=== PATIENT | female | born 1950 | race Caucasian/White ===

== ENCOUNTER 2022-05-25 09:02 | Emergency (ER) | payer MEDICARE, BC, SELFPAY ==
[2022-05-25 09:11] VITALS: BP 159/69; PULSE 80; RESP 16; TEMP 36.6; O2SAT 98
--- NOTE | 2022-05-25 09:45 | DI.RAD_ITS ---
Exam(s) XR SHOULDER RT COMPLETE 2+V EXAM: XR SHOULDER RT COMPLETE 2+V CLINICAL HISTORY: fall/pain. TECHNIQUE: 2D digital imaging was performed of the right shoulder. Five images were obtained. AP, Grashey, Y-view and axillary views were obtained. COMPARISON: No exams were available for comparison FINDINGS: BONES: There is an acute fracture of the lateral aspect of the right clavicle. The apex of the fract ure is directed cephalad. The fracture does not involve the acromioclavicular joint. No bony destru ctive lesion is seen. JOINTS: No dislocation present. SOFT TISSUE: Normal. IMPRESSION: Right clavicular fracture. DATA REPOSITORY: RADIATION DOSE DELIVERED:
--- NOTE | 2022-05-25 09:45 | DI.RAD_ITS ---
Exam(s) XR PELVIS AP EXAM: XR PELVIS AP CLINICAL HISTORY: fall/pain. TECHNIQUE: 2D digital imaging was performed. One view is obtained. COMPARISON: No exams were available for comparison FINDINGS: BONES: No acute fracture is present. No bony destructive lesion is seen. Screw and plate fixation is seen in the right hemipelvis. JOINTS: No dislocation present. Degenerative changes are seen in the left hip with acetabular spurrin g present. A right total hip arthroplasty is incompletely visualized. The visualized portions are g rossly unremarkable. SOFT TISSUE: Vascular calcifications are present. IMPRESSION: No acute fracture or dislocation. DATA REPOSITORY: RADIATION DOSE DELIVERED:
--- NOTE | 2022-05-25 09:45 | DI.RAD_ITS ---
Exam(s) XR CHEST 2V PA LATERAL EXAM: XR CHEST 2V PA LATERAL CLINICAL HISTORY: fall/pain TECHNIQUE: 2D digital imaging was performed of the chest. Two images were obtained. PA and lateral views were obtained. COMPARISON: None. FINDINGS: MEDIASTINUM: Normal. HEART: Normal. PULMONARY VASCULATURE: Normal. LUNGS: Clear. PLEURAL SPACE: No pleural effusion or pneumothorax. BONE:Within normal limits for the patient's age. There are minimally displaced fractures involving t he lateral aspects of the left 7th and 8th ribs. There is an acute fracture of the distal aspect of the right clavicle. The apex of the fracture is directed cephalad. OTHER FINDINGS:Normal. IMPRESSION: 1. No acute pulmonary findings. 2. Minimally displaced fractures involving the lateral aspects of the left 7th and 8th ribs. No pneu mothorax. 3. Right clavicular fracture. DATA REPOSITORY: RADIATION DOSE DELIVERED:
--- NOTE | 2022-05-25 09:59 | NUR.NOTE ---
Nursing Note: PT TO DI FOR ORDERED EXAMS VIA W/C.
--- NOTE | 2022-05-25 10:40 | ED.GENADUL_ITS ---
Discharge Plan Disposition Patient Disposition: HOME Condition: Improving Discharge Details Clinical Impression: Clavicle fracture, Fall, Fracture of rib Primary Care Provider: Unknown,Unknown ED Provider: Rohan Torres Home Meds and New Rx's Prescriptions: New lidocaine [Lidoderm] 5 % adhesive patch,medicated 1 patch topical DAILY Qty: 30 0RF Rx Instructions: leave on most painful area for up to 12 hrs Continued aspirin 81 mg Tablet,Delayed Release (Dr/Ec) 81 mg PO DAILY acetaminophen 500 mg Tablet 1,000 mg PO BID cholecalciferol (vitamin D3) 50 mcg (2,000 unit) Tablet 2,000 unit PO DAILY clobetasol 0.05 % Ointment 1 applic TOPICAL BID clotrimazole 1 % Cream 1 applic TOPICAL BID ezetimibe 10 mg Tablet 10 mg PO DAILY fluocinolone [Synalar] 0.01 % Solution 1 applic TOPICAL DIRECTED Rx Instructions: 5 drops to affected ear BID insulin lispro 100 unit/mL Cartridge 25 unit subcut DAILY ferrous sulfate [iron] 325 mg (65 mg iron) Tablet 325 mg PO DIRECTED Rx Instructions: 3 times per week Levemir U-100 Insulin 100 unit/mL Solution 25 unit SUBCUT DIRECTED PRN Rx Instructions: in case of pump failure levothyroxine 100 mcg Tablet 100 mcg PO DAILY losartan 50 mg Tablet 50 mg PO DAILY melatonin 10 mg Capsule 10 mg PO HS sertraline 50 mg Tablet 75 mg PO DAILY simvastatin 20 mg Tablet 20 mg PO DIRECTED Rx Instructions: 3 times per week folic acid 0.8 mg Capsule 0.8 mg PO DAILY multivitamin Tablet 1 tab PO DAILY cyanocobalamin (vitamin B-12) [Vitamin B-12] 500 mcg Tablet 500 mcg PO DIRECTED Rx Instructions: take daily on weekdays Discharge Instructions Instructions: Clavicle Fracture (ED), Rib Fracture (ED), Fall Prevention for Older Adults (ED) Additional Instructions: Continue current medications as directed. I have provided you a prescription for Lidoderm patches he may take as directed. [id number] Tylenol as directed for discomfort. Be sure to use the incentive spirometer at least 4 times daily as directed to avoid a frozen shoulder. Please contact the office of Dr. Ascencio to discuss your clavicle fracture need for outpatient follow-up. Wear sling until that time. You may do passive range of motion 4 times daily to avoid a frozen shoulder. Please watch for new or worsening symptoms and return to the ER for any concerns. Lastly, please contact your primary care provider later today or tomorrow to discuss your ER visit need for outpatient r eevaluation Referrals: Javier Ascencio MD [ [facility] STAFF PHYSICIAN] - Medical Decision Making This is a 71-year-old female, not anticoagulated, past sickle history of diabetes, baseline ambulatory dysfunction, reports a mechanical fall down 5 stairs yesterday injuring her right shoulder and left ribs. Reports history of hip replacement, also concerned about her hip but denies any pain. She did not strike her head, denies headache, LOC, neck pain, visual changes, shortness of breath, abdominal pain, nausea, vomiting, back pain. Patient states that she did have immunizations yesterday and afterwards felt a little achy but that has resolved completely. At this time she is requesting an x-ray of her ribs, shoulder, pelvis. She is declining any IV access, laboratory values, CT imaging or analgesia X-ray reveals a clavicle fracture as well as to rib fractures Discussed x-ray findings with patient. Placed into a right shoulder sling, also provided with incentive spirometer with teaching. She does not want any analgesia now but is agreeable to a Lidoderm topical patch prescription. She reports that her PCP is in [place] and she will reach out to them for outpatient evaluation and I will refer her to our orthopedic team, placed on the orthopedic list to help expedite outpatient follow-up through or the orthopedic Standard discharge and return precautions were provided. Patient understands, is agreeable to this plan, and has no additional questions or concerns upon discharge. This documentation was generated using [employer] dictation system, please disregard any oddities of phrase or misspellings. Imaging Data Radiologic Study: Attestation: I personally reviewed and interpreted this imaging study as follows: Imaging: X-Ray Radiologist's impression: Exam(s) XR CHEST 2V PA LATERAL EXAM: XR CHEST 2V PA LATERAL CLINICAL HISTORY: fall/pain TECHNIQUE: 2D digital imaging was performed of the chest. Two images were obtained. PA and lateral views were obtained. COMPARISON: None. FINDINGS: MEDIASTINUM: Normal. HEART: Normal. PULMONARY VASCULATURE: Normal. LUNGS: Clear. PLEURAL SPACE: No pleural effusion or pneumothorax. BONE:Within normal limits for the patient's age. There are minimally displaced fractures involving the lateral aspects of the left 7th and 8th ribs. There is an acute fracture of the distal aspect of the right clavicle. The apex of the fracture is directed cephalad. OTHER FINDINGS:Normal. IMPRESSION: 1. No acute pulmonary findings. 2. Minimally displaced fractures involving the lateral aspects of the left 7th and 8th ribs. No pneumothorax. 3. Right clavicular fracture. Radiologic Study #2: Attestation: I personally reviewed and interpreted this imaging study as follows: Imaging: X-Ray Radiologist's impression: This report is currently processing and HAS NOT BEEN OFFICIALLY SIGNED BY THE PHYSICIAN - ESTIMATED TIME OF APPROVAL IS 05/25/2022 11:07. Exam(s) XR SHOULDER RT COMPLETE 2+V EXAM: XR SHOULDER RT COMPLETE 2+V CLINICAL HISTORY: fall/pain. TECHNIQUE: 2D digital imaging was performed of the right shoulder. Five images were obtained. AP, Grashey, Y-view and axillary views were obtained. COMPARISON: No exams were available for comparison FINDINGS: BONES: There is an acute fracture of the lateral aspect of the right clavicle. The apex of the fracture is directed cephalad. The fracture does not involve the acromioclavicular joint. No bony destructive lesion is seen. JOINTS: No dislocation present. SOFT TISSUE: Normal. IMPRESSION: Right clavicular fracture. Radiologic Study #3: Attestation: I personally reviewed and interpreted this imaging study as follows: Imaging: X-Ray Radiologist's impression: This report is currently processing and HAS NOT BEEN OFFICIALLY SIGNED BY THE PHYSICIAN - ESTIMATED TIME OF APPROVAL IS 05/25/2022 11:09. Exam(s) XR PELVIS AP EXAM: XR PELVIS AP CLINICAL HISTORY: fall/pain. TECHNIQUE: 2D digital imaging was performed. One view is obtained. COMPARISON: No exams were available for comparison FINDINGS: BONES: No acute fracture is present. No bony destructive lesion is seen. Screw and plate fixation is seen in the right hemipelvis. JOINTS: No dislocation present. Degenerative changes are seen in the left hip with acetabular spurring present. A right total hip arthroplasty is incompletely visualized. The visualized portions are grossly unremarkable. SOFT TISSUE: Vascular calcifications are present. IMPRESSION: No acute fracture or dislocation. HPI General Mode of arrival: ambulatory . Date/Time Provider Initiated Documentation: 05/25/22 09:31 . Limitations to Documentation: no limitations . Information obtained by: patient . History of Present Illness 71 year old F presents to the emergency department with the chief complaint of fall, R shoulder L rib pain, described as moderate, with intensity rated at 7. Quality is described as aching, and is localized to the chest, right and upper extremity. Patient reports no radiation. Patient started experiencing this hour(s) (12) and it has been constant. Immobilization improves symptom(s), Movement worsens symptoms . Patient notes no other symptoms.. Patient did receive the following treatments prior to arrival, none Related Data Home Medications Medication Instructions Recorded Confirmed acetaminophen 500 mg tablet 1,000 mg PO BID 05/25/22 05/25/22 aspirin 81 mg tablet,delayed 81 mg PO DAILY 05/25/22 05/25/22 release cholecalciferol (vitamin D3) 50 2,000 unit PO DAILY 05/25/22 05/25/22 mcg (2,000 unit) tablet clobetasol 0.05 % topical ointment 1 applic topical BID 05/25/22 05/25/22 clotrimazole 1 % topical cream 1 applic topical BID 05/25/22 05/25/22 cyanocobalamin (vitamin B-12) 500 500 mcg PO DIRECTED 05/25/22 05/25/22 mcg tablet (Vitamin B-12) ezetimibe 10 mg tablet 10 mg PO DAILY 05/25/22 05/25/22 ferrous sulfate 325 mg (65 mg 325 mg PO DIRECTED 05/25/22 05/25/22 iron) tablet (iron) fluocinolone 0.01 % topical 1 applic topical DIRECTED 05/25/22 05/25/22 solution (Synalar) folic acid 0.8 mg capsule 0.8 mg PO DAILY 05/25/22 05/25/22 insulin detemir U-100 100 unit/mL 25 unit subcut DIRECTED PRN 05/25/22 05/25/22 subcutaneous solution (Levemir U-100 Insulin) insulin lispro 100 unit/mL 25 unit subcut DAILY 05/25/22 05/25/22 subcutaneous cartridge levothyroxine 100 mcg tablet 100 mcg PO DAILY 05/25/22 05/25/22 lidocaine 5 % topical patch 1 patch topical DAILY #30 ea 05/25/22 (Lidoderm) losartan 50 mg tablet 50 mg PO DAILY 05/25/22 05/25/22 melatonin 10 mg capsule 10 mg PO HS 05/25/22 05/25/22 multivitamin 1 tab PO DAILY 05/25/22 05/25/22 sertraline 50 mg tablet 75 mg PO DAILY 05/25/22 05/25/22 simvastatin 20 mg tablet 20 mg PO DIRECTED 05/25/22 05/25/22 Previous Rx's Medication Instructions Recorded lidocaine 5 % topical patch 1 patch topical DAILY #30 ea 05/25/22 (Lidoderm) Allergies Allergy/AdvReac Type Severity Reaction Status Date / Time sodium lauryl sulfate Allergy Intermediate lip Unverified 05/25/22 09:18 swelling Daapbcg-ICI-VeL Reductase AdvReac Mild memory Unverified 05/25/22 09:18 Inhibitor troubles escitalopram [From Lexapro] AdvReac Unknown Unverified 05/25/22 09:18 General Stated Complaint: Trauma WING: 3 Review of Systems Constitutional Constitutional: Denies fever(s), Denies headache(s) and Denies weakness Eyes Eyes: Denies change in vision ENT Ears, Nose, Mouth, and Throat: Denies headache(s) and Denies neck pain Cardiovascular Cardiovascular: Reports chest pain (Chest wall, rib pain) and Denies dyspnea Respiratory Respiratory: Denies cough and Denies dyspnea Gastrointestinal Gastrointestinal: Denies abdominal pain, Denies nausea and Denies vomiting Musculoskeletal Musculoskeletal: Denies back pain, Denies neck pain, Denies numbness and Denies tingling Integumentary/Breasts Skin/Breast: Denies rash Neurologic Neurologic: Denies headache(s), Denies numbness, Denies tingling and Denies weakness Hematologic/Lymphatic Hematologic/Lymphatic: Denies easy bleeding and Denies easy bruising PFSH All Active Problems Clavicle fracture (Acute) Fall (Acute) Fracture of rib (Acute) Social History Smoking/Tobacco Use Status: Never Smoking risk assessment performed?: Yes Alcohol Intake: current Alcohol Intake frequency: a few times a week Alcohol type: wine Drug use: Never Substance use type: does not use Do you feel safe at home: Yes Do you feel safe in your relationship?: Yes Exam Const General: cooperative, healthy appearing, comfortable and no acute distress Orientation: alert, awake and oriented x3 [facility] Head: normal to inspection, normocephalic and atraumatic Face and sinus: normal facial exam Mouth: moist mucous membranes Eyes General: appearance normal, both eyes and all related structures Conjunctivae: conjunctivae normal Neck Neck: normal visual inspection, full ROM, trachea midline, supple and nontender Chest Other: There is discomfort over the right lateral clavicle with mild swelling and ecchymosis. Left inferior lateral chest wall-rib pain. No crepitus. Resp Effort & Inspection: normal respiratory effort and able to speak in complete sentences Auscultation: clear to auscultation bilaterally Cardio Rate: regular rate Rhythm: regular rhythm GI Inspection: normal to inspection Palpation: soft, not firm, no guarding, no pulsatile masses and nontender Auscultation: normal bowel sounds Back/Spine/Pelvis Back: no CVA tenderness and No back tenderness Skin General skin exam: no rashes or lesions noted Neuro General: patient alert, patient awake, patient oriented x3, moves all extremities and no focal motor deficits Cranial Nerves: CN's II-XI intact bilaterally Cognition: normal cognition Speech: speech normal Gait: normal gait Motor: muscle tone normal throughout Sensory Exam: no sensory deficits noted Extrem General: capillary refill normal Other: Lower extremities unremarkable. Left upper extremity unremarkable. Right upper extremity decreased range of motion secondary to discomfort from her clavicle. There is no bony point tenderness of the right shoulder. Normal capillary refill, radial pulses and pedal pulses. Psych Appearance: grossly normal Mental Status: mental status grossly normal Course Vital Signs Vital signs: Vital Signs Temperature 36.6 C 05/25/22 09:11 Pulse 80 05/25/22 09:11 Respiratory Rate 16 05/25/22 09:11 Blood Pressure 159/69 H 05/25/22 09:11 Pulse Oximetry 98 05/25/22 09:11 Temperature 36.6 C 05/25/22 09:11 Temperature Source Oral 05/25/22 09:11 Pulse 80 05/25/22 09:11 Respiratory Rate 16 05/25/22 09:11 Respiratory Effort 05/25/22 09:23 Blood Pressure 159/69 H 05/25/22 09:11 Blood Pressure Position Sitting 05/25/22 09:11 Pulse Oximetry 98 05/25/22 09:11 Oxygen Delivery Method Room Air 05/25/22 09:11 Oxygen Flow Rate 0 05/25/22 09:11 Pain Level 8 05/25/22 09:23 Comment 05/25/22 09:11 PAWSS Have you Been Recently Intoxicated or Drunk Within the Last 30 days?: No Have you Ever Experienced Previous Episodes of Alcohol Withdrawal?: No Have you ever Experienced Withdrawal Seizures?: No Have you ever Experienced Delirium Tremens(DT)s?: No Have you ever undergone Alcohol Rehabilitation Treatment (i.e, inpt ot outpatient treatment programs)?: No Have you ever Experienced Blackouts?: No Have you ever Combined Alcohol with other Downers within the last 90 days?: No Have you ever Combined Alcohol with any other Substance of Abuse during the last 90 days?: No Positive Blood Alcohol level on Presentation? [PCS.BAL]: No Evidence of Increased Autonomic Activity (i.e. HR>120, tremor, sweating, agitation, nausea)?: No Result: 0
[2022-05-25 11:38] VITALS: BP 140/61; PULSE 87; TEMP 36.7; O2SAT 98
== END 2022-05-25 11:45 | disposition home or self-care (01) ==
PROVIDERS: Emergency Provider Physician Assistant
DX: S42.031A Displaced fracture of lateral end of right clavicle, initial encounter for closed fracture (principal); S22.42XA Multiple fractures of ribs, left side, initial encounter for closed fracture; W10.9XXA Fall (on) (from) unspecified stairs and steps, initial encounter; E11.9 Type 2 diabetes mellitus without complications; Z79.4 Long term (current) use of insulin
CPT/HCPCS: 99284; 71046; 72170; 73030

== ENCOUNTER 2022-06-05 14:21 | Outpatient (CLI) | payer MEDICARE, BC, SELFPAY ==
--- NOTE | 2022-06-05 13:45 | DI.RAD_ITS ---
Exam(s) XR CLAVICLE RT EXAM: XR CLAVICLE RT INDICATION: f/u R clavicle fracture. COMPARISON: CR XR SHOULDER RT COMPLETE 2+V from 05/25/2022 TECHNIQUE: 2D digital imaging was performed. Two views. FINDINGS: There has been no change in alignment of the comminuted distal clavicle fracture. DATA REPOSITORY: RADIATION DOSE DELIVERED:
== END 2022-06-05 14:22 | disposition home or self-care (01) ==
LOC: DIORS 14:23
PROVIDERS: Visit Provider Student in an Organized Health Care Education/Training Program
DX: S42.031A Displaced fracture of lateral end of right clavicle, initial encounter for closed fracture (principal); W10.8XXA Fall (on) (from) other stairs and steps, initial encounter
CPT/HCPCS: 99214; 73000

== ENCOUNTER 2022-06-15 11:39 | Outpatient (CLI) | payer MEDICARE, BC, SELFPAY ==
--- NOTE | 2022-06-15 11:15 | DI.RAD_ITS ---
Exam(s) XR CLAVICLE RT EXAM: XR CLAVICLE RT CLINICAL HISTORY: f/u R clavicle frx TECHNIQUE: COMPARISON: CR XR CLAVICLE RT from 06/05/2022 FINDINGS: Two views were obtained and show previously described comminuted fracture of the distal clavicle. Al ignment appears unchanged comparison with prior examination June 05. There may be faint early c allus formation visible. IMPRESSION: RADIATION DOSE DELIVERED: Total DLP
== END 2022-06-15 11:40 | disposition home or self-care (01) ==
LOC: DIORS 11:39
PROVIDERS: PCP Nurse Practitioner Adult Health; Referring Provider Nurse Practitioner Adult Health; Visit Provider Student in an Organized Health Care Education/Training Program
DX: S42.031D Displaced fracture of lateral end of right clavicle, subsequent encounter for fracture with routine healing (principal); W19.XXXD Unspecified fall, subsequent encounter
CPT/HCPCS: 99213; 73000

== ENCOUNTER 2022-07-06 13:01 | Outpatient (CLI) | payer MEDICARE, BC, SELFPAY ==
--- NOTE | 2022-07-06 11:30 | DI.RAD_ITS ---
Exam(s) XR CLAVICLE RT EXAM: XR CLAVICLE RT CLINICAL HISTORY: f/u R CLAVICLE FRACTURE TECHNIQUE: 2D digital imaging was performed of the right clavicle. Two images were obtained. AP and axial views were obtained. COMPARISON: CR XR CLAVICLE RT from 06/15/2022 FINDINGS: BONES: There has been no change in the distal right clavicular fracture. No bony destructive lesion is seen. JOINTS: No dislocation present. SOFT TISSUE: Normal IMPRESSION: Stable right clavicular fracture. DATA REPOSITORY: RADIATION DOSE DELIVERED:
== END 2022-07-06 13:02 | disposition home or self-care (01) ==
LOC: DIORS 13:01
PROVIDERS: PCP Nurse Practitioner Adult Health; Referring Provider Nurse Practitioner Adult Health; Visit Provider Student in an Organized Health Care Education/Training Program
DX: S42.031D Displaced fracture of lateral end of right clavicle, subsequent encounter for fracture with routine healing (principal); X58.XXXD Exposure to other specified factors, subsequent encounter
CPT/HCPCS: 99213; 73000

== ENCOUNTER 2022-08-17 10:06 | Outpatient (CLI) | payer MEDICARE, BC, SELFPAY ==
--- NOTE | 2022-08-17 09:45 | DI.RAD_ITS ---
Exam(s) XR CLAVICLE RT EXAM: XR CLAVICLE RT INDICATION: f/u R clavicle fracture. COMPARISON: CR XR SHOULDER RT COMPLETE 2+V from 05/25/2022 CR XR CLAVICLE RT from 06/05/2022 CR XR CLAVICLE RT from 06/15/2022 CR XR CLAVICLE RT from 07/06/2022 TECHNIQUE: 2D digital imaging was performed. Two views. FINDINGS: There is some increased to be increased space between the distal fracture fragment the main portion o f the clavicle and compared with the previous exam. No significant bony bridging. Overall alignment is unchanged. DATA REPOSITORY: RADIATION DOSE DELIVERED:
== END 2022-08-17 10:07 | disposition home or self-care (01) ==
LOC: DIORS 10:06
PROVIDERS: PCP Nurse Practitioner Adult Health; Referring Provider Nurse Practitioner Adult Health; Visit Provider Student in an Organized Health Care Education/Training Program
DX: S42.031D Displaced fracture of lateral end of right clavicle, subsequent encounter for fracture with routine healing (principal); W19.XXXD Unspecified fall, subsequent encounter
CPT/HCPCS: 99213; 73000

== ENCOUNTER → 2023-04-19 13:20 | Outpatient (BNVA) | payer MEDICARE, BC, SELFPAY | PROVIDERS: PCP Nurse Practitioner Family; Referring Provider Nurse Practitioner Family; Visit Provider Psychiatry & Neurology Neurology | DX: R26.89 Other abnormalities of gait and mobility (principal); G62.9 Polyneuropathy, unspecified; I95.1 Orthostatic hypotension | CPT/HCPCS: 99215 ==

== ENCOUNTER 2023-04-23 18:25 | Outpatient (REF) | payer MEDICARE, BC, SELFPAY ==
[2023-04-23 15:42] LABS: Vitamin B12 538 pg/mL (193-986)
[2023-04-24 13:54] LABS: Albumin 61.8 % (55.8-66.1); Albumin g/dL 4.4 g/dL (3.6-5.2); Total Protein 7.1 g/dL (6.3-8.2)
== END 2023-04-23 18:26 | disposition home or self-care (01) ==
LOC: NCHCN 18:25
PROVIDERS: PCP Nurse Practitioner Family; Visit Provider Nurse Practitioner Family
DX: G62.9 Polyneuropathy, unspecified (principal); Z86.39 Personal history of other endocrine, nutritional and metabolic disease
CPT/HCPCS: 82607; 84165

== ENCOUNTER → 2023-06-19 09:39 | Outpatient (BNVA) | payer MEDICARE, BC, SELFPAY | PROVIDERS: PCP Nurse Practitioner Family; Referring Provider Nurse Practitioner Family; Visit Provider Psychiatry & Neurology Neurology | DX: R26.89 Other abnormalities of gait and mobility (principal); G62.9 Polyneuropathy, unspecified; I95.1 Orthostatic hypotension; E10.9 Type 1 diabetes mellitus without complications; E53.8 Deficiency of other specified B group vitamins; I10 Essential (primary) hypertension | CPT/HCPCS: 99215 ==

== ENCOUNTER → 2023-08-14 12:16 | Outpatient (BNVA) | payer MEDICARE, BC, SELFPAY | PROVIDERS: PCP Nurse Practitioner Family; Referring Provider Nurse Practitioner Family; Visit Provider Psychiatry & Neurology Neurology | DX: G62.9 Polyneuropathy, unspecified (principal); I95.1 Orthostatic hypotension; H81.93 Unspecified disorder of vestibular function, bilateral | CPT/HCPCS: 99214 ==

== ENCOUNTER 2023-08-14 19:24 | Outpatient (REF) | payer MEDICARE, BC, SELFPAY ==
[2023-08-14 14:59] LABS: Iron 117 ug/dL (50-170); Total Iron Binding Capacity 308 ug/dL (250-450); Transferrin Sat 38 % (15-50)
[2023-08-14 15:43] LABS: Ferritin 140 ng/mL (8-252)
[2023-08-15 08:30] LABS: DHEA Sulfate 113 ug/dL (See Note)
[2023-08-17 14:47] LABS: Testosterone, Total 21 ng/dL (8-60)
== END 2023-08-14 19:25 | disposition home or self-care (01) ==
LOC: NCHCN 19:24
PROVIDERS: PCP Nurse Practitioner Family; Visit Provider Nurse Practitioner Family
DX: L65.9 Nonscarring hair loss, unspecified (principal)
CPT/HCPCS: 82627; 84403; 82728; 83540; 83550

== ENCOUNTER 2023-08-19 12:11 | Emergency (ER) | payer MEDICARE, BC, SELFPAY ==
[2023-08-19] VITALS (18 sets, daily range): BP systolic 125–211; BP diastolic 67–133; PULSE 75–99; RESP 13–22; O2SAT 94–98
--- NOTE | 2023-08-19 12:00 | RT.EKG_ITS ---
APPROVED REPORT Exam: Resting ECG Reason for Exam: syncopal episodes Patient Location: E HR:87 bpm ECG Measurements Heart Rate 87 AXIS AK 135 P 71 QRSd 102 QRS -62 QT 398 T 24 QTc 478 Conclusion Sinus rhythm...normal P axis, V-rate 60- 99 Left anterior fascicular block...axis(240,-40), init forces inf Probable left ventricular hypertrophy...(RaVL+SV3)xQRSd >300 Abnrm T, consider ischemia, anterolateral lds...T <-0.20mV, I aVL V2-V6 LAD, old IMI No acute sttw changes NO STEMI, no previous available for comparison
--- NOTE | 2023-08-19 12:27 | W.ED.GENAD ---
Discharge Plan Disposition Patient Disposition: Transfer-Acute Inpatient Care Specific Acute Inpt Facility: [facility] Condition: Stable Discharge Details Clinical Impression: Multiple fractures of rib involving four or more ribs, Syncope and collapse, Fracture of third metatarsal bone of right foot, Abnormal ECG, Hypomagnesemia, Hx of insulin dependent diabetes mellitus Primary Care Provider: Danisha rOtiz ED Provider: Gloria Gunter Home Meds and New Rx's Prescriptions: No Action verapamil 40 mg tablet 40 mg PO QHS PRN (Reason: SBP >140 or DBP >90) Qty: 30 3RF Hold Instructions: orthostatic hypotension fludrocortisone 0.1 mg tablet 0.05 mg PO DAILY Qty: 30 5RF losartan 50 mg tablet 50 mg PO DAILY Qty: 90 3RF cholecalciferol (vitamin D3) 50 mcg (2,000 unit) Tablet 2,000 unit PO DAILY clobetasol 0.05 % Ointment 1 applic TOPICAL BID ezetimibe 10 mg Tablet 10 mg PO DAILY fluocinolone [Synalar] 0.01 % Solution 1 applic TOPICAL DIRECTED Rx Instructions: 5 drops to affected ear BID insulin lispro 100 unit/mL Cartridge 25 unit subcut DAILY ferrous sulfate [iron] 325 mg (65 mg iron) Tablet 325 mg PO DIRECTED Rx Instructions: 3 times per week Levemir U-100 Insulin 100 unit/mL Solution 25 unit SUBCUT DIRECTED PRN Rx Instructions: in case of pump failure levothyroxine 100 mcg Tablet 100 mcg PO DAILY simvastatin 20 mg Tablet 20 mg PO DIRECTED Rx Instructions: 3 times per week folic acid 0.8 mg Capsule 0.8 mg PO DAILY multivitamin Tablet 1 tab PO DAILY cyanocobalamin (vitamin B-12) [Vitamin B-12] 500 mcg Tablet 500 mcg PO DIRECTED Rx Instructions: take daily on weekdays sertraline 50 mg tablet 100 mg PO DAILY aspirin 81 mg tablet,delayed release (DR/EC) 81 mg PO DAILY Rx Instructions: take every other day Discharge Data Discharge Physician: Gloria Gunter Medical Decision Making This is a 73-year-old female who presents with a syncopal episode which was not preceded by any presyncopal symptoms. She had a previous episode in April and follow-up with neurology after she was found to have orthostatic hypotension in her primary care provider's office. Her losartan was discontinued at that time. She may have had 1 previous similar episode about a year ago. She has no known coronary artery disease but she does have Q waves in the inferior leads suggestive of prior inferior myocardial infarction. She does not have a headache her GCS is 15 and has an essentially normal neurologic exam. She denies any neck pain I do not see an indication for CT of the head or cervical spine. I will order a CT of the chest abdomen and pelvis with IV contrast to rule out fracture, pneumothorax, pulmonary contusion or hemothorax as well as intra-abdominal traumatic injuries such as a liver lack. Although the patient has been reluctant to take narcotics because she had an adverse (not allergic) reaction in the past I will encourage her to try a small amount of fentanyl for pain. She does not have an oxygen requirement. We will get a CBC to check her white count H&H and differential. We will check cardiac enzymes and a comprehensive metabolic panel to evaluate her liver function renal function and electrolytes. I will also obtain a plain film of her right foot to evaluate for fracture since it is tender and swollen. Differential Diagnosis Differential Diagnosis: Chest wall contusion, rib fracture, thoracic contusion, abdominal trauma, Medical Records Medical records reviewed: Yes I reviewed the patient's medical records. Imaging Data Radiologic Study: Imaging: X-Ray (Right foot) Radiologist's impression: vRad Impression:1. Possible nondisplaced fracture base of the 3rd metatarsal. 2. Additional findings as discussed above. Radiologic Study #2: Imaging: CT Scan (Chest abdomen and pelvis with IV contrast) Radiologist's impression: vRad Impression:1. Acute right lateral rib fractures. 2. Post cholecystectomy dilated intrahepatic biliary ducts. 3. Additional findings as discussed above. Lab Data Lab results reviewed: Yes I reviewed the patient's lab results. ECG Data Attestation: I personally reviewed and interpreted this ECG (s) as follows: Prior ECG tracings: available for review HPI General Date/Time Provider Initiated Documentation: 08/19/23 12:27. Limitations to Documentation: other (Patient had a loss of consciousness). Information obtained by: patient. HPI Narrative: Time seen was 12:27 PM in room 8. The patient is a 73-year-old [id number] female who presents after fainting. She states that she did not have any presyncopal symptoms today. She said she woke up and felt fine but after testing began feeling faint. She had a similar episode in April and was advised to follow-up with Dr. Vincent after she was found to be positive for orthostatic changes in her primary care's office. They also discontinued her losartan at that time. She said she was not referred to cardiology. She was referred to PT at [facility] and was evaluated the a few weeks ago. She thinks she may have had 1 prior episode approximately a year ago. She does have an insulin pump. She has been told in the past she had a benign tachycardia. She does take baby aspirin every other day. She states that today she was sitting on the bed and woke up next to it. She thinks she may have hit her left chest wall against the bedside table and is also complaining of pain in the left throat. She has been reluctant to take any narcotics for her pain because they made her feel funny. She denies any shortness of breath. Her chest and foot pain are constant and aggravated by movement. She denies any headache or neck pain. She tells me she did have a CT of her head when she was seen here previously. She denies any blurry vision discharge from her nose or ears. She denies any malocclusion of her teeth. She is an insulin-dependent diabetic and does have an insulin pump. She denies any shortness of breath or abdominal pain. Patient is very reluctant to take narcotics and did take acetaminophen and ibuprofen prior to arrival Related Data Home Medications Medication Instructions Recorded Confirmed cholecalciferol (vitamin D3) 50 2,000 unit PO DAILY 05/25/22 08/19/23 mcg (2,000 unit) tablet clobetasol 0.05 % topical ointment 1 applic topical BID 05/25/22 08/19/23 cyanocobalamin (vitamin B-12) 500 500 mcg PO DIRECTED 05/25/22 08/19/23 mcg tablet (Vitamin B-12) ezetimibe 10 mg tablet 10 mg PO DAILY 05/25/22 08/19/23 ferrous sulfate 325 mg (65 mg 325 mg PO DIRECTED 05/25/22 08/19/23 iron) tablet (iron) fluocinolone 0.01 % topical 1 applic topical DIRECTED 05/25/22 08/19/23 solution (Synalar) folic acid 0.8 mg capsule 0.8 mg PO DAILY 05/25/22 08/19/23 insulin detemir U-100 100 unit/mL 25 unit subcut DIRECTED PRN 05/25/22 08/19/23 subcutaneous solution (Levemir U-100 Insulin) insulin lispro 100 unit/mL 25 unit subcut DAILY 05/25/22 08/19/23 subcutaneous cartridge levothyroxine 100 mcg tablet 100 mcg PO DAILY 05/25/22 08/19/23 multivitamin 1 tab PO DAILY 05/25/22 08/19/23 simvastatin 20 mg tablet 20 mg PO DIRECTED 05/25/22 08/19/23 sertraline 50 mg tablet 100 mg PO DAILY 06/05/22 08/19/23 aspirin 81 mg tablet,delayed 81 mg PO DAILY 04/19/23 08/19/23 release fludrocortisone 0.1 mg tablet 0.05 mg (1/2 x 0.1 mg) PO DAILY 06/19/23 08/19/23 #30 tabs losartan 50 mg tablet 50 mg PO DAILY #90 tabs 06/19/23 08/19/23 verapamil 40 mg tablet 40 mg PO QHS PRN SBP >140 or DBP 06/19/23 08/19/23 >90 #30 tabs Previous Rx's Medication Instructions Recorded fludrocortisone 0.1 mg tablet 0.05 mg (1/2 x 0.1 mg) PO DAILY 06/19/23 #30 tabs losartan 50 mg tablet 50 mg PO DAILY #90 tabs 06/19/23 verapamil 40 mg tablet 40 mg PO QHS PRN SBP >140 or DBP 06/19/23 >90 #30 tabs Allergies Allergy/AdvReac Type Severity Reaction Status Date / Time sodium lauryl sulfate Allergy Intermediate lip Verified 08/14/23 12:18 swelling [id number] Reductase AdvReac Mild memory Verified 08/14/23 12:18 Inhibitor troubles escitalopram [From Lexapro] AdvReac Unknown Verified 08/14/23 12:18 General Stated Complaint: [id number] WING: 3 Review of Systems Narrative: see hpi PFSH All Active Problems (Updated 08/19/23 @ 17:54 by Gloria Gunter MD) Hx of insulin dependent diabetes mellitus (Acute) Hypomagnesemia (Acute) Abnormal ECG (Acute) Fracture of third metatarsal bone of right foot (Acute) Syncope and collapse (Acute) Multiple fractures of rib involving four or more ribs (Acute) Orthostatic hypotension (Acute) Vestibular disorder (Acute) Peripheral neuropathy (Acute) Displaced fracture of lateral end of right clavicle (Acute) Medical History Melanoma in situ Vitamin B12 deficiency Hypertension Hyperlipidemia Hypothyroidism Type 1 diabetes Anxiety with depression Osteopenia Lichen sclerosus History of anemia Surgical History S/P hip replacement S/P ORIF (open reduction internal fixation) fracture S/P trigger finger release S/P carpal tunnel release S/P cataract extraction S/P cholecystectomy Family History Father Cancer Mother Dementia Social History Smoking/Tobacco Use Status: Never Smoking risk assessment performed?: Yes Alcohol Intake: current Alcohol Intake frequency: a few times a week Alcohol type: wine Drug use: Never Substance use type: does not use Household members: friend(s) Number of Children: 3 current occupation: Retired RN What is your relationship status?: Panel score (0-1 are the most socially isolated patients): 0 Do you feel safe at home: Yes Do you feel safe in your relationship?: Yes Exam Narrative Exam Narrative: The patient is well-developed well-nourished hypertensive female who is alert and oriented x 4. She is mildly hypertensive. She is not tachycardic tachypneic or febrile. Her room air O2 sat is normal at 97%. Const General: cooperative Other: Slightly uncomfortable. [facility] Head: normal to inspection, no palpable skull fracture, normocephalic and atraumatic Other: No hemotympanum otorrhea or rhinorrhea alford signs or raccoon's eyes. Eyes Periorbital: periorbital findings normal Eyelids: eyelids normal Conjunctivae: conjunctivae normal Sclera: sclerae normal Cornea: corneas normal Pupils: PERRL EOM: EOM intact bilaterally Direct ophthalmoscopy: normal light reflex Neck Neck: normal visual inspection, full ROM, no meningeal signs and trachea midline Other: No midline tenderness, step-off or bony crepitus of the CT LS spine. Chest Other: The patient has bruising and tenderness of the right chest wall in the anterior lateral aspect of her chest. It is tender but there is no subcutaneous emphysema. There is no flail chest. She has symmetrical expansion. Resp Effort & Inspection: normal respiratory effort, able to speak in complete sentences, no audible wheezes, no nasal flaring, no paradoxical thoraco-abdom movements, no pursed lip breathing, no respiratory distress, no stridor, not tachypneic, no tracheal deviation, no use of accessory muscles and No prolonged expiratory phase Auscultation: clear to auscultation bilaterally, no rales, no rhonchi, no wheezes and no rubs Tactile Fremitus: tactile fremitus absent Cardio Jugular venous pressure: no JVD Rate: regular rate Rhythm: regular rhythm Heart Sounds: S1 normal, S2 normal, normal, physiologic split S2, no click, no gallops, no murmurs and no rubs GI Inspection: normal to inspection, no abdominal wall ecchymosis, no edema and non-distended Palpation: no hepatosplenomegaly Auscultation: normal bowel sounds Other: Mild left upper quadrant tenderness. Normal active bowel sounds. She has an insulin pump entering the right lower quadrant of her abdomen. Back/Spine/Pelvis Other: No midline tenderness step-off or bony crepitus. Skin General skin exam: no rashes or lesions noted and turgor normal Other: There is ecchymoses of the right anterior lateral chest wall. There is swelling and ecchymoses over the dorsum of the right foot Neuro General: patient alert, patient awake, patient oriented x3, no meningeal signs, no focal motor deficits, CN's II-XI intact bilaterally and deep tendon reflexes 2+ bilaterally Cranial Nerves: CN's II-XI intact bilaterally, PERRL, EOM intact bilaterally, no nystagmus and facial strength normal Cognition: normal cognition Speech: speech normal Motor: muscle tone normal throughout and strength 5/5 throughout DTR's: Rt Biceps: 2+, Lt Biceps: 2+, Rt Patellar: 2+, Lt Patellar: 2+, Rt Ankle: 1+ and Lt Ankle: 1+ Plantar Reflexes: Downgoing: bilateral Pupils: Normal pupillary reactivity/response: bilateral Extrem Other: She is moving all of her extremities normally except for the left foot. The left hip knee and ankle are nontender with full range of motion. She is tender over the dorsum of the right foot which is swollen. There is no obvious deformity. Her flexor and extensor tendons are intact in the foot. Cap refills less than 2 seconds. There is no open wounds or lacerations. Psych Appearance: grossly normal Mental Status: mental status grossly normal Speech and Movement: speech and movement normal Mood: congruent mood Affect: normal affect Thought Process: normal Thought Content: normal Insight: insight good Judgment: judgment good Other: The patient appears to have capacity to make medical decisions. Course 1651 PM: Patient states that so 12.5 mcg of fentanyl did not help with the pain. She does not feel confused and I will write for 25 mcg. I am still waiting to hear back from the [facility] trauma service. Patient's losartan was discontinued because of orthostatic hypotension but she has had elevated blood pressure here with a systolic over 200 so I have written for 50 mg p.o. of losartan. 1715 p.m. I have discussed the case with Dr. Gloria Parnell the trauma surgeon at [facility] who accepted the patient as a trauma alert to the emergency department. She suggested that we give a lidocaine patch and IV acetaminophen which the patient cannot take since it has been 4 hours since her initial dose. I have updated the patient and notified her of the impending transfer. Vital Signs Vital signs: Vital Signs Pulse 84 08/19/23 12:18 Respiratory Rate 18 08/19/23 12:18 Blood Pressure 171/78 H 08/19/23 12:18 Pulse Oximetry 97 08/19/23 12:18 Pulse 84 08/19/23 12:18 Respiratory Rate 18 08/19/23 12:18 Respiratory Effort Normal, Non-Labored 08/19/23 12:25 Respiratory Depth Normal 08/19/23 12:25 Respiratory Pattern Normal 08/19/23 12:25 Blood Pressure 171/78 H 08/19/23 12:18 Pulse Oximetry 97 08/19/23 12:18 Oxygen Delivery Method Room Air 08/19/23 12:18 Oxygen Flow Rate 0 08/19/23 12:18 Lab/Test Results Lab/Test Results: Mild leukocytosis, normal H&H slight left shift, mild hypochloremia, mild hyperglycemia, mild hypomagnesemia, normal TSH and liver functions. Normal troponin x 2. Critical Care Time Critical Care Time Critical Care Time: Yes Total Critical Care Time: 52 Attestation: This includes time at bedside, review of labs EKG and radiographs, consultation with the trauma surgeon at [facility] and reevaluation of the patient multiple times. Sign Out Sign Out Data: Sign Out Comment: This is a 73-year-old female who presents after an unwitnessed syncopal event which was not preceded by any presyncopal symptoms. This is the second or third episode she has experienced. The last episode occurred in April. She followed up with her primary care provider and was found to be orthostatic in the department. Her losartan was discontinued and she followed up with neurology. She has no history of coronary artery disease but does have an EKG here which is consistent with a previous inferior myocardial infarction. Today she had another episode, and injured her right chest wall and right throat. She denies hitting her head. She is on a baby aspirin every other day. No other therapeutic anticoagulants. She is denying any headache or neck pain. Her chest CT demonstrates 6 rib fractures 4 through 9 on the right and a probable fracture of the right third metatarsal. She has been reluctant to take narcotics because they have made her feel funny in the past. She had taken acetaminophen and ibuprofen prior to arrival. She does not have a pneumothorax or oxygen requirement. She was mildly hypomagnesemic and that has been replaced. She did receive 37.5 mcg of fentanyl and I have written for a gram of IV acetaminophen since it has been 4 hours since her last dose as well as a Lidoderm patch. She has been excepted by Dr. Kemal Parnell the trauma surgeon at [facility] as a trauma alert from the ED to the ED and all the paperwork has been completed. Last updated by Gloria Gunter MD at 08/19/23 18:00
--- NOTE | 2023-08-19 12:47 | DI.RAD_ITS ---
Exam(s) XR FOOT RT COMPLETE EXAM: XR FOOT RT COMPLETE CLINICAL HISTORY: trauma. TECHNIQUE: 2D digital imaging was performed. COMPARISON: No exams were available for comparison FINDINGS: 3 views There is dorsal soft tissue swelling. No diastasis of the Lisfranc joint. Hallux valgus noted. Hea led fracture site in the distal 3rd metatarsal noted. On the present study there is subtle suggestio n of possible nondisplaced fracture of the base of the 3rd metatarsal. No other acute appearing find ings. Vascular calcification in the plantar arteries is noted. IMPRESSION: Possible subtle nondisplaced fracture in the proximal 3rd metatarsal. Correlation with site of tende rness is recommended. There is a healed fracture in the distal 3rd metatarsal noted. DATA REPOSITORY: RADIATION DOSE DELIVERED:
--- NOTE | 2023-08-19 12:47 | DI.CT_ITS ---
Exam(s) CT CHEST/ABD/PEL W EXAM: CT CHEST/ABD/PEL W CLINICAL HISTORY: trauma. TECHNIQUE: Imaging Protocol: Axial computed tomography images with coronal and sagittal reformatted images were created and reviewed CONTRAST MATERIAL: Intravenous: Omnipaque 350 Contrast volume:100 ml Oral: None COMPARISON: No exams were available for comparison FINDINGS: CHEST: LUNGS: Mild infiltrates in the bilateral lung bases, slightly more prominent on the right side. Ther e are acute appearing fractures of the right 5th, 6, 7th, 8th, 9th ribs. There is a healed fracture of the 10th rib. There are multiple healed fractures of the opposite-left ribs. There is no pneumot horax evident.. No pleural effusions. MEDIASTINUM: No evidence of sternal fracture or mediastinal hematoma. No hilar nor mediastinal adeno salma. No axillary adenopathy. CARDIAC: Heart size is normal. There is no pericardial effusion.Caliber of the thoracic aorta is wit hin normal limits. No evidence of dissection. OSSEOUS: Acute right rib fractures as above. Healed lower left rib fractures. No vertebral fracture s. No sternal fracture.. ABDOMEN: There is no ascites. No evidence of bowel wall nor mesenteric hematoma. LIVER: No liver laceration. No lesions. No significant dilatation of intrahepatic ducts. GALLBLADDER/BILIARY: Gallbladder surgically absent. CBD is not dilated. PANCREAS: No evidence of pancreatic mass nor dilatation of the pancreatic duct. SPLEEN: Normal size. No laceration. Splenic granuloma noted. Splenic and portal veins are patent. ADRENALS: There are no significant adrenal masses. KIDNEYS: No renal laceration or subcapsular hematoma. No focal findings in the right kidney. Linear lucency in the left kidney is probably artifact.. No cysts evident. No solid renal masses. ABDOMINAL AORTA: Abdominal aorta is not enlarged. LYMPH NODES: There is no retroperitoneal nor paraaortic adenopathy. ABDOMINAL WALL: No evidence of significant anterior abdominal wall nor inguinal hernia. GI: There is no evidence of bowel obstruction.No evidence of bowel wall nor mesenteric hematoma. PELVIS: LYMPH NODES: There is no intrapelvic nor inguinal adenopathy. GI: Appendix not able to seen is a separate structure..No evidence of sigmoid diverticulitis. URINARY BLADDER: Small-collapse. REPRODUCTIVE: Calcified uterine fibroid. No abnormal adnexal masses nor free fluid. OSSEOUS: Right hip prosthesis and fixation plate in the right hemipelvis. Healed fracture of the inf erior pubic ramus on the right side also noted. No acute fractures identified. No compression fract ures. IMPRESSION: 1. There are multiple acute right lateral rib fractures involving the right 5th through 9th ribs, inc lusive. No pneumothorax. However, there are mild infiltrates in both lung bases, more so on the rig ht side. No pleural effusions. 2. There is a thin linear lucency in the left kidney lateral cortex which is probably artifact. Estelita ot completely exclude a laceration. There is no fluid in this region. No abnormality in the opposit e-right kidney. No evidence of laceration in the liver and spleen. No ascites. 3. Other findings as above RADIATION DOSE DELIVERED: Total DLP DATA REPOSITORY: All CT scans at this facility are submitted to the National Radiology Data Registry (NRDR) Dose Index Registry (DIR) with the [employer] (A[employer]). RADIATION OPTIMIZATION: All CT scans at this facility use at least one of these dose optimization te chniques: automated exposure control; mA and/or kV adjustment per patient size (includes targeted exa ms where dose is matched to clinical indication); or iterative reconstruction.
[2023-08-19] MEDS: ACETAMINOPHEN 1,000 MG/100 ML BTL 400 MG IVPB ×2 (12:59→17:53)
[2023-08-19] MEDS: Normal Saline 1,000 ML 1000 ML IV (13:00)
[2023-08-19 13:05] LABS: Abs Immature Grans 0.03 10^3/uL (0.0-0.06); Absolute Basophil Count 0.05 10^3/uL (0.0-0.2); Absolute Eosinophil Count 0.01 10^3/uL (0.0-0.7); Absolute Lymphocyte Count 0.63 10^3/uL (1.2-3.4); Basophils % 0.4; Eosinophils % 0.1; HCT 41.4 % (36.0-46.0); Immature Grans % 0.2; Lymphocytes % 5.2; MCH 32.3 pg (27.0-33.0); MCHC 33.8 % (32.0-36.0); MCV 95 fL (80-95); Neutrophils % 88.1; Platelet Count 233 10^3/uL (130-400); RBC 4.34 10^6/uL (3.93-5.22); RDW 12.8 % (11.7-14.6); RDW-SD 45.7 fL; WBC 12.08 10^3/uL (4.4-10.8)
[2023-08-19 13:08] LABS: Absolute Monocyte Count 0.72 10^3/uL (0.1-0.8); Absolute Neutrophil Count 10.64 10^3/uL (1.2-6.7)
[2023-08-19 13:29] LABS: ALT 34 U/L (14-59); AST 37 U/L (15-37); Albumin 4.1 g/dL (3.4-5.0); Alkaline Phosphatase 87 U/L (46-116); Anion Gap 11.5 mmol/L (3-11); BUN 10 mg/dL (7-18); Bilirubin, Total 0.6 mg/dL (0.2-1.0); CO2 29.5 mmol/L (21.0-32.0); CREATININE 0.7 mg/dL (0.55-1.02); Calcium 9.1 mg/dL (8.5-10.1); Chloride 97 mmol/L (98-107); Estimated GFR 91.83 (mL/min/1.73m2); Glucose 233 mg/dL (74-106); Magnesium 1.7 mg/dL (1.8-2.4); Potassium 3.6 mmol/L (3.5-5.1); Sodium 138 mmol/L (136-145); TSH 1.75 uIU/mL (0.36-3.74); Total Protein 8.1 g/dL (6.4-8.2); Troponin I < 50 ng/L (<or=60)
[2023-08-19 13:31] LABS: PTT Activated 21.6 sec (23.6-32.8); Prothrombin Time 10.5 sec (9.1-11.1)
[2023-08-19] MEDS: Normal Saline - Diluent 50 ML VIAL IJ (14:09)
[2023-08-19] MEDS: Omnipaque 350 MG/ML 100 ML BTL IJ (14:11)
[2023-08-19] MEDS: Normal Saline Flush 10 ML SYR IVP (14:12)
--- NOTE | 2023-08-19 14:42 | DI.VRAD_ITS ---
PROCEDURE INFORMATION: Exam: XR Right Foot Exam date and time: 08/19/2023 2:20 PM Age: 73 years old Clinical indication: Injury or trauma; Fall; Blunt trauma; Foot; Right TECHNIQUE: Imaging protocol: Radiologic exam of the right foot. Views: 3 or more views. COMPARISON: No relevant prior studies available. FINDINGS: Bones/joints: Degenerative changes of the 1st metatarsal phalangeal joint with hallucis valgus deformity. Prior 3rd metatarsal fracture suspected. Decreased bone mineralization. Possible nondisplaced fracture of the base of the 3rd metatarsal seen on the oblique view. Soft tissues: Soft tissue swelling. Vasculature: Vascular calcification. IMPRESSION: 1. Possible nondisplaced fracture base of the 3rd metatarsal. 2. Additional findings as discussed above. Dictated and Authenticated by: Jennifer Galvin MD. Ordering:ANA PAULA Castro MD
--- NOTE | 2023-08-19 15:08 | DI.VRAD_ITS ---
PROCEDURE INFORMATION: Exam: CT Chest With Contrast; Diagnostic Exam date and time: 08/19/2023 2:01 PM Age: 73 years old Clinical indication: Injury or trauma; Fall; Ruq; Blunt trauma (contusions or hematomas) TECHNIQUE: Imaging protocol: Diagnostic computed tomography of the chest with contrast. Contrast material: OMNIPAQUE 350; Contrast volume: 100 ml; Contrast route: INTRAVENOUS (IV); COMPARISON: CR XR CHEST 2V PA LATERAL 25/05/2022 10:07 FINDINGS: Lungs: Bibasilar coarse reticular markings with bronchiectasis consistent infiltrates. Pleural spaces: Mild apical pleural thickening. Heart: Cardiomegaly. Coronary arteries: Calcified coronary arteries. Lymph nodes: Unremarkable. No enlarged lymph nodes. Vasculature: Atherosclerotic disease. Diaphragm: Hiatal hernia. Bones/joints: Acut multiple acute right lateral rib fractures 4th through 9th ribs. Age indeterminate left rib fractures. Degenerative changes of the right acromioclavicular joint. Degenerative changes of the left shoulder and acromioclavicular joint. Degenerative changes of the visualized cervical spine. Multilevel degenerative changes of the thoracic spine. Soft tissues: Surgical clips in the right axilla. IMPRESSION: 1. Multiple acute right lateral rib fractures. 2. Bibasilar infiltrates. 3. Cardiomegaly. Coronary artery disease. 4. Additional findings as discussed above. PROCEDURE INFORMATION: Exam: CT Abdomen And Pelvis With Contrast Exam date and time: 08/19/2023 2:01 PM Age: 73 years old Clinical indication: Injury or trauma; Fall; Ruq; Blunt trauma (contusions or hematomas) TECHNIQUE: Imaging protocol: Computed tomography of the abdomen and pelvis with contrast. Contrast material: OMNIPAQUE 350; Contrast volume: 100 ml; Contrast route: INTRAVENOUS (IV); COMPARISON: CR XR PELVIS AP 25/05/2022 10:32 FINDINGS: Limitations: Degraded image quality through the pelvis and right lower quadrant secondary to metallic artifact. Liver: Hepatomegaly. No mass. Gallbladder and bile ducts: Cholecystectomy. Dilated intrahepatic biliary ducts. Common bile duct measures 0.7 cm. Pancreas: Normal. No ductal dilation. Spleen: Normal. No splenomegaly. Adrenal glands: Normal. No mass. Kidneys and ureters: Normal. No hydronephrosis. Stomach and bowel: Moderate solid stool load. Normal caliber small bowel. Contracted stomach. Appendix: No evidence of appendicitis. Intraperitoneal space: Unremarkable. No free air. No significant fluid collection. Vasculature: Atherosclerotic disease. Lymph nodes: Unremarkable. No enlarged lymph nodes. Urinary bladder: Unremarkable as visualized. Reproductive: Uterine calcifications. Bones/joints: Postsurgical changes of the right pelvis and total right hip arthroplasty. Decreased bone mineralization. Multilevel degenerative changes of the spine. Multiple acute right lateral rib fractures. Age indeterminate left rib fractures. Soft tissues: Unremarkable. IMPRESSION: 1. Acute right lateral rib fractures. 2. Post cholecystectomy dilated intrahepatic biliary ducts. 3. Additional findings as discussed above. Dictated and Authenticated by: Jennifer Galvin MD. Ordering:ANA PAULA Castro MD
[2023-08-19] MEDS: MAGNESIUM SULFATE 1 GM/100 ML BAG IVPB (15:39)
[2023-08-19] MEDS: fentaNYL 100 MCG/2 ML VIAL 12.5 MCG IVP (15:43)
[2023-08-19 16:38] LABS: Troponin I < 50 ng/L (<or=60)
[2023-08-19] MEDS: Losartan 50 MG TAB PO (16:56)
[2023-08-19] MEDS: fentaNYL 100 MCG/2 ML VIAL 25 MCG IVP (16:57)
[2023-08-19] MEDS: Lidocaine 5% Patch 1 PATCH TP (17:53)
--- NOTE | 2023-08-19 18:23 | ED.PROG_ITS ---
Date of service: 08/19/23 Time of Service: 18:23 Medical Decision Making I received signout on this 73-year-old female in the emergency department following a fall who has been accepted to [facility] as a transfer in the setting of multiple rib fractures but no pneumothorax. She complained of pain. I treated her with 4 mg of morphine. She is pending transfer to [facility]. 7:06 PM I met with the patient. She was feeling improved following her morphine. She did have an elevated blood pressure at 211/86. She denies headache. She did not have any weakness. Likely her elevated blood pressure is secondary to pain. She had a contrast CT abdomen pelvis with rib fractures but no pneumothorax. No dissection. Patient was transferred my shift with an advanced EMT via [facility] to [facility]. Sign Out Sign Out Data: Sign Out Comment: This is a 73-year-old female who presents after an unwitnessed syncopal event which was not preceded by any presyncopal symptoms. This is the second or third episode she has experienced. The last episode occurred in April. She followed up with her primary care provider and was found to be orthostatic in the department. Her losartan was discontinued and she followed up with neurology. She has no history of coronary artery disease but does have an EKG here which is consistent with a previous inferior myocardial infarction. Today she had another episode, and injured her right chest wall and right throat. She denies hitting her head. She is on a baby aspirin every other day. No other therapeutic anticoagulants. She is denying any headache or neck pain. Her chest CT demonstrates 6 rib fractures 4 through 9 on the right and a probable fracture of the right third metatarsal. She has been reluctant to take narcotics because they have made her feel funny in the past. She had taken acetaminophen and ibuprofen prior to arrival. She does not have a pneumothorax or oxygen requirement. She was mildly hypomagnesemic and that has been replaced. She did receive 37.5 mcg of fentanyl and I have written for a gram of IV acetaminophen since it has been 4 hours since her last dose as well as a Lidoderm patch. She has been excepted by Dr. Kemal Parnell the trauma surgeon at [facility] as a trauma alert from the ED to the ED and all the paperwork has been completed. Last updated by Gloria Gunter MD at 08/19/23 18:00 Discharge Plan Disposition Patient Disposition: Transfer-Acute Inpatient Care Specific Acute Inpt Facility: [facility] Condition: Stable Discharge Details Clinical Impression: Multiple fractures of rib involving four or more ribs, Syncope and collapse, Fracture of third metatarsal bone of right foot, Abnormal ECG, Hypomagnesemia, Hx of insulin dependent diabetes mellitus Primary Care Provider: Danisha Ortiz ED Provider: Gloria Gunter Home Meds and New Rx's Prescriptions: No Action verapamil 40 mg tablet 40 mg PO QHS PRN (Reason: SBP >140 or DBP >90) Qty: 30 3RF Hold Instructions: orthostatic hypotension fludrocortisone 0.1 mg tablet 0.05 mg PO DAILY Qty: 30 5RF losartan 50 mg tablet 50 mg PO DAILY Qty: 90 3RF cholecalciferol (vitamin D3) 50 mcg (2,000 unit) Tablet 2,000 unit PO DAILY clobetasol 0.05 % Ointment 1 applic TOPICAL BID ezetimibe 10 mg Tablet 10 mg PO DAILY fluocinolone [Synalar] 0.01 % Solution 1 applic TOPICAL DIRECTED Rx Instructions: 5 drops to affected ear BID insulin lispro 100 unit/mL Cartridge 25 unit subcut DAILY ferrous sulfate [iron] 325 mg (65 mg iron) Tablet 325 mg PO DIRECTED Rx Instructions: 3 times per week Levemir U-100 Insulin 100 unit/mL Solution 25 unit SUBCUT DIRECTED PRN Rx Instructions: in case of pump failure levothyroxine 100 mcg Tablet 100 mcg PO DAILY simvastatin 20 mg Tablet 20 mg PO DIRECTED Rx Instructions: 3 times per week folic acid 0.8 mg Capsule 0.8 mg PO DAILY multivitamin Tablet 1 tab PO DAILY cyanocobalamin (vitamin B-12) [Vitamin B-12] 500 mcg Tablet 500 mcg PO DIRECTED Rx Instructions: take daily on weekdays sertraline 50 mg tablet 100 mg PO DAILY aspirin 81 mg tablet,delayed release (DR/EC) 81 mg PO DAILY Rx Instructions: take every other day Discharge Data Discharge Physician: Gloria Gunter
--- NOTE | 2023-08-19 18:24 | NUR.NOTE ---
Friend Jennifer in car [phone]/ Nursing Note:
[2023-08-19] MEDS: MORPHine 4 MG/ML SYR IVP (18:27)
--- NOTE | 2023-08-23 15:37 | NUR.NOTE ---
Acessed pt chart to print provider note for [facility] billing purposes. Nursing Note:
== END 2023-08-19 19:22 | disposition short-term general hospital (02) ==
PROVIDERS: Emergency Provider Emergency Medicine Emergency Medical Services; PCP Nurse Practitioner Family
DX: R55 Syncope and collapse (principal); S22.41XA Multiple fractures of ribs, right side, initial encounter for closed fracture; S92.334A Nondisplaced fracture of third metatarsal bone, right foot, initial encounter for closed fracture; E83.42 Hypomagnesemia; R94.31 Abnormal electrocardiogram [ECG] [EKG]; I44.4 Left anterior fascicular block; E10.9 Type 1 diabetes mellitus without complications; I10 Essential (primary) hypertension; E78.5 Hyperlipidemia, unspecified; E03.9 Hypothyroidism, unspecified; I25.2 Old myocardial infarction; Z79.82 Long term (current) use of aspirin; Z79.899 Other long term (current) drug therapy
CPT/HCPCS: 00123; 74177; 80053; 82962; 93005; 96361; 96365; 96375; 96376; 99285; 71260; 73630; 83735; 84443; 84484; 85025; 85610; 85730; 93010; J0131; J2270; J3010; J3475; J3490

== ENCOUNTER 2023-10-04 11:13 | Outpatient (RCR) | payer MEDICARE, BC, SELFPAY ==
--- NOTE | 2023-10-04 11:00 | HOLTER_ITS ---
APPROVED REPORT Conclusion This is a 48-hour Holter monitor Rhythm throughout is sinus. Average heart rate is 81. Minimum was 64, maximum 125 There were rare atrial and ventricular ectopic beats A total of 10 self-limited atrial runs occurred. None of these was longer than 10 beats in duration There was no atrial fibrillation, no high-grade AV block Some strips labeled SVT were sinus tachycardia in the 120s No patient symptoms were reported
== END 2023-10-25 23:59 | disposition home or self-care (01) ==
LOC: CARDOPNVT 11:13
PROVIDERS: PCP Nurse Practitioner Family; Visit Provider Nurse Practitioner Family
DX: R55 Syncope and collapse (principal); R00.0 Tachycardia, unspecified
CPT/HCPCS: 93227; 93225; 93226

== ENCOUNTER → 2023-10-16 13:17 | Outpatient (BNVA) | payer MEDICARE, BC, SELFPAY | PROVIDERS: PCP Nurse Practitioner Family; Referring Provider Nurse Practitioner Family; Visit Provider Psychiatry & Neurology Neurology | DX: G62.9 Polyneuropathy, unspecified (principal); H81.93 Unspecified disorder of vestibular function, bilateral; R29.6 Repeated falls; I95.1 Orthostatic hypotension | CPT/HCPCS: 99215 ==

== ENCOUNTER → 2023-11-01 01:51 | Outpatient (CLI) | payer MEDICARE, BC, SELFPAY ==
--- NOTE | 2023-11-01 07:45 | DI.MRI_ITS ---
Exam(s) MR CERVICAL SPINE WO EXAM: MR CERVICAL SPINE WO CLINICAL HISTORY: ?myelopathy,gait abnormality,freq falls,r26.9,r29.6 TECHNIQUE: Multiplanar multisequence MRI of the cervical spine was performed without intravenous con trast. COMPARISON: There are no prior cervical imaging studies available at the time of this MRI interpreta tion FINDINGS: CERVICOMEDULLARY JUNCTION: Intact with no evidence of cerebellar tonsillar ectopia. No obvious abnor mality of the odontoid process. No evidence of Chiari 1 malformation. CERVICAL SPINAL CORD: There is no abnormal signal in the cervical spinal cord and no evidence of foca l cord atrophy nor focal cord swelling. OSSEOUS:There is mild straightening of the cervical curvature at C5-6 level. There is no evidence of fracture or listhesis. No ominous osseous lesions evident. INDIVIDUAL LEVELS: C2-3: No disc herniation nor central canal stenosis. No foraminal stenosis. No facet arthropathy. C3-4: No disc herniation nor central canal stenosis.No facet arthropathy. No foraminal stenosis. C4-5: Small central subligamentous disc protrusion noted at this level which indents the thecal sac b ut not the spinal cord. No abnormal signal in the cord at this level. No central canal stenosis. T here are no obvious significant degenerative changes in the facet joints at this level.Also no signif icant foraminal stenosis. C5-6: This level exhibits chronic disc space narrowing. There is broad annular bulging which flatten s the anterior aspect of the thecal sac but not the spinal cord. There is mild central spinal canal stenosis at this level. AP measurement of the canal is 9 mm. There does not appear to be abnormal s ignal in the cord at this level. There are minimal degenerative changes in the facet joints. Bilate ral Luschka joint-disc osteophyte complex is noted,. This results in bilateral moderate foraminal st enosis. C6-7: This level exhibits chronic disc space narrowing. Posteriorly there is broad annular bulging a nd small Luschka joint osteophytes. There is mild-moderate central canal stenosis with AP measuremen t of the canal being 7 mm at this level. On the STIR sequence there is a small focus of signal abnor mality in the spinal cord at this level. This is less evident on the other sequences. Facet joints at this level appear unremarkable. Mild foraminal stenosis noted bilaterally at this level. C7-T1: No disc herniation nor central canal stenosis. No facet arthropathy.No foraminal stenosis. IMPRESSION: 1. The main findings here at C5-6 and C6-7 levels as described above, including an element of mild ca nal stenosis, more prominent at C6-7 level. This is mostly related to broad annular bulging and Lusc hka joint osteophyte complexes. On the sagittal STIR sequence there is a small focus of increased si gnal in the spinal cord at C6-7 level possibly significant. However, this is not evident on T2 image s. Nevertheless, there is stenosis at this level mild-moderate central canal stenosis at this level. DATA REPOSITORY:
== END ==
PROVIDERS: PCP Nurse Practitioner Family; Visit Provider Psychiatry & Neurology Neurology
DX: M50.122 Cervical disc disorder at C5-C6 level with radiculopathy (principal)
CPT/HCPCS: 72141

== ENCOUNTER → 2023-12-10 08:18 | Outpatient (BNVA) | payer MEDICARE, BC, SELFPAY | PROVIDERS: PCP Nurse Practitioner Family; Visit Provider Psychiatry & Neurology Neurology | DX: G62.9 Polyneuropathy, unspecified (principal); H81.93 Unspecified disorder of vestibular function, bilateral; I95.1 Orthostatic hypotension; M48.02 Spinal stenosis, cervical region; R29.6 Repeated falls | CPT/HCPCS: 99214 ==

== ENCOUNTER 2024-05-20 11:37 | Outpatient (CLI) | payer MEDICARE, BC, SELFPAY ==
--- NOTE | 2024-05-20 | DI.CT_ITS ---
Exam(s) CT HEAD WO EXAM: CT HEAD WO CLINICAL HISTORY: ACUTE ONSET SEVERE VERTIGO, R42. TECHNIQUE: Imaging Protocol: Axial computed tomography images with coronal and sagittal reformatted images were created and reviewed COMPARISON: No exams were available for comparison FINDINGS: Ventricles and Extra axial spaces: Normal in size and morphology for the patient's age. Hemorrhage: None. Cerebral parenchyma: There are areas of decreased attenuation in the white matter most consistent wit h chronic microvascular ischemic disease. 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 Midline shift: None. Brainstem/Cerebellum: Normal. Calvarium: Normal. Visualized Paranasal sinuses/Mastoids: Clear. Soft Tissues: Unremarkable. IMPRESSION: No acute intracranial process. RADIATION DOSE DELIVERED: 913.8mGy.cm Total DLP DATA REPOSITORY: All CT scans at this facility are submitted to the National Radiology Data Registry (NRDR) Dose Index Registry (DIR) with the [employer] ([employer]). RADIATION OPTIMIZATION: All CT scans at this facility use at least one of these dose optimization te chniques: automated exposure control; mA and/or kV adjustment per patient size (includes targeted exa ms where dose is matched to clinical indication); or iterative reconstruction.
== END 2024-05-20 11:57 ==
PROVIDERS: PCP Nurse Practitioner Family; Visit Provider Nurse Practitioner Family
DX: R42 Dizziness and giddiness (principal)
CPT/HCPCS: 70450

== ENCOUNTER → 2024-06-09 10:44 | Outpatient (BNVA) | payer MEDICARE, BC, SELFPAY | PROVIDERS: PCP Nurse Practitioner Family; Visit Provider Psychiatry & Neurology Neurology | DX: G62.9 Polyneuropathy, unspecified (principal); H81.90 Unspecified disorder of vestibular function, unspecified ear; I95.1 Orthostatic hypotension; R29.6 Repeated falls; M48.02 Spinal stenosis, cervical region; I10 Essential (primary) hypertension; E10.9 Type 1 diabetes mellitus without complications | CPT/HCPCS: 99214 ==

== ENCOUNTER 2024-06-26 21:14 | Emergency (ER) | payer MEDICARE, BC, SELFPAY ==
[2024-06-26] VITALS (16 sets, daily range): BP systolic 105–167; BP diastolic 54–80; PULSE 100–116; RESP 14–24; TEMP 36.4; O2SAT 92–97
--- NOTE | 2024-06-26 21:00 | DI.CT_ITS ---
Exam(s) CT HEAD CERVICAL SPINE WO EXAM: CT HEAD CERVICAL SPINE WO CLINICAL HISTORY: Trauma. TECHNIQUE: Imaging Protocol: Axial computed tomography images with coronal and sagittal reformatted images were created and reviewed COMPARISON: CT CT HEAD WO from 05/20/2024 FINDINGS: Head CT Ventricles and Extra axial spaces: Normal in size and morphology for the patient's age. Hemorrhage: None. Cerebral parenchyma: No evidence of mass or acute infarct. Mild microvascular changes of the white matter. Midline shift: None. Brainstem/Cerebellum: Normal. Calvarium: Normal. Visualized Paranasal sinuses/Mastoids: Clear. Soft tissues: Soft tissue swelling in the left periorbital region. Cervical Spine CT BONES: Vertebral body heights are maintained. Alignment is normal. There is no evidence of acute frac ture. Degenerative disc changes and facet degenerative changes are seen, at C1-2, C5-6 and C6-7.. SOFT TISSUES: No paraspinal hematoma. The airway appears intact. No pneumothorax is seen at the lung apices. IMPRESSION: Head CT: No acute abnormality. C-spine CT: Degenerative changes, no acute abnormality. RADIATION DOSE DELIVERED: 1,234.99mGy.cm Total DLP DATA REPOSITORY: All CT scans at this facility are submitted to the National Radiology Data Registry (NRDR) Dose Index Registry (DIR) with the [employer] (ACR). RADIATION OPTIMIZATION: All CT scans at this facility use at least one of these dose optimization te chniques: automated exposure control; mA and/or kV adjustment per patient size (includes targeted exa ms where dose is matched to clinical indication); or iterative reconstruction.
[2024-06-26 21:37] LABS: Abs Immature Grans 0.01 10^3/uL (0.0-0.06); Absolute Basophil Count 0.06 10^3/uL (0.0-0.2); Absolute Eosinophil Count 0.07 10^3/uL (0.0-0.7); Absolute Lymphocyte Count 0.89 10^3/uL (1.2-3.4); Absolute Neutrophil Count 4.05 10^3/uL (1.2-6.7); Basophils % 1.1 %; Eosinophils % 1.2 %; HCT 40.5 % (36.0-46.0); HGB 13.8 g/dL (11.2-15.7); Immature Grans % 0.2 %; Lymphocytes % 15.7 %; MCH 33.2 pg (27.0-33.0); MCHC 34.1 % (32.0-36.0); MCV 97 fL (80-95); MPV 10.3 fL (8.0-11.0); Monocytes % 10.6 %; Neutrophils % 71.2 %; Platelet Count 196 10^3/uL (130-400); RBC 4.16 10^6/uL (3.93-5.22); RDW 12.6 % (11.7-14.6); WBC 5.68 10^3/uL (4.4-10.8)
[2024-06-26 21:46] LABS: Prothrombin Time 9.6 sec (9.1-11.1)
[2024-06-26 22:00] LABS: ALT 35 U/L (14-59); AST 32 U/L (15-37); Alkaline Phosphatase 84 U/L (46-116); Anion Gap 10.7 mmol/L (3-11); BUN 10 mg/dL (7-18); Bilirubin, Total 0.35 mg/dL (0.2-1.0); CO2 30.3 mmol/L (21.0-32.0); CREATININE 0.8 mg/dL (0.55-1.02); Calcium 9.3 mg/dL (8.5-10.1); Chloride 100 mmol/L (98-107); ETHANOL BLOOD 199.5 mg/dL (<10); Estimated GFR 77.75 (mL/min/1.73m2); Glucose 259 mg/dL (74-106); Potassium 4.3 mmol/L (3.5-5.1); Sodium 141 mmol/L (136-145); Total Protein 8.2 g/dL (6.4-8.2); Troponin I 4 ng/L (<or=51)
[2024-06-26 22:07] LABS: Bilirubin Negative (Negative); Blood Negative (Negative); Clarity Clear (Clear); Glucose 250 mg/dL (Negative); Ketones Negative (Negative); Leukocyte Esterase Negative (Negative); Nitrite Negative (Negative); Urobilinogen 0.2 mg/dL (Up to 0.2)
--- NOTE | 2024-06-26 22:16 | ED.GENADUL_ITS ---
Discharge Plan Disposition Patient Disposition: Home Condition: Stable Discharge Details Clinical Impression: Closed head injury, Frequent falls, Fall (on) (from) other stairs and steps, initial encounter, Eyebrow laceration Primary Care Provider: Danisha Ortiz ED Provider: Sherley Mcconnell Home Meds and New Rx's Prescriptions: New insulin lispro 100 unit/mL solution 1 sliding scale dose subcut USEASDIRECTD Qty: 10 0RF Rx Instructions: For use in your insulin pump No Action losartan 50 mg tablet 50 mg PO DAILY Qty: 90 3RF sennosides [Natural Senna Laxative] 8.6 mg tablet 8.6 mg PO .QOD fludrocortisone 0.1 mg tablet 0.05 mg PO DAILY meclizine 50 mg tablet 50 mg PO BID cholecalciferol (vitamin D3) 50 mcg (2,000 unit) Tablet 2,000 unit PO DAILY clobetasol 0.05 % Ointment 1 applic TOPICAL BID ezetimibe 10 mg Tablet 10 mg PO DAILY fluocinolone [Synalar] 0.01 % Solution 1 applic TOPICAL DIRECTED Rx Instructions: 5 drops to affected ear BID insulin lispro 100 unit/mL Cartridge 25 unit subcut DAILY ferrous sulfate [iron] 325 mg (65 mg iron) Tablet 325 mg PO DIRECTED Rx Instructions: 3 times per week Levemir U-100 Insulin 100 unit/mL Solution 25 unit SUBCUT DIRECTED PRN Rx Instructions: in case of pump failure levothyroxine 100 mcg Tablet 100 mcg PO DAILY simvastatin 20 mg Tablet 20 mg PO DIRECTED Rx Instructions: 3 times per week multivitamin Tablet 1 tab PO DAILY cyanocobalamin (vitamin B-12) [Vitamin B-12] 500 mcg Tablet 500 mcg PO DIRECTED Rx Instructions: take daily on weekdays sertraline 50 mg tablet 100 mg PO DAILY Discharge Instructions Instructions: Concussion in adults Additional Instructions: You were seen in the emergency department today for evaluation after a fall. In our department a full physical examination performed, had laboratory studies that were reassuring, and had CT imaging that did not show any evidence of abnormalities such as bleeding in your brain or fracture. You do have a laceration on your eyebrow that was closed with skin glue and Steri-Strips. These will fall off on their own when it is time, you do not need to pull them off. Please keep the area clean and dry, and use Tylenol as needed for pain. You likely have a concussion, and should follow-up with your primary care provider to discuss next steps management of any symptoms that persist. You should avoid alcohol, maintain good hydration and nutrition, and rest your body and your brain until your symptoms improve. Continue all home medications as prescribed. I did provide you with a refill of your insulin given your difficulties with getting your insulin pump filled, which you should continue to take as prescribed by your primary care provider. You can always return to the emergency department for evaluation if symptoms that cause you concern, and thank you for allowing us to be part of your care. HPI General Mode of arrival: EMS . Date/Time Provider Initiated Documentation: 06/26/24 21:29 . Limitations to Documentation: no limitations . Information obtained by: patient, EMS and old records reviewed . HPI Narrative: HPI: This is a 74-year-old female patient with a past medical history significant for cervical stenosis, orthostatic hypotension, who is presenting for evaluation after a fall. The patient fell down a flight of stairs, believes that she lost consciousness but is not sure for how long. She was awake, alert, and oriented to person, place, and time at the time of EMS arrival, did have some repetitive questions but endorses drinking 3 glasses of wine at night. She reports that she does not have any pain, did have a laceration appreciated to her left eyebrow that cause tenderness when it was pointed out to her. She has a history of type 1 diabetes, wears an insulin pump. She does not take blood thinners. Exam: Gen: Awake and alert, in no apparent distress HEENT: Non-icteric sclera, pupils equal and reactive bilaterally, 1 cm laceration to the left eyebrow with bruising, stopped with direct pressure. She has no facial bone instability, no evidence of injury to the teeth or tongue Neck: Cervical collar in place, no tenderness to palpation of the C-spine, no step-offs Lungs: No apparent respiratory distress, normal respiratory effort. Lung sounds clear and equal bilaterally CV: Appears well perfused, heart with regular rate and rhythm Abdomen: Non-distended, soft, nontender to palpation MSK: Moves 4 extremities without apparent limitation in ROM. The patient has no tenderness or deformity of the chest wall, bilateral upper extremities atraumatic and nontender. Pelvis stable to AP compression, bilateral lower extremities nontender Skin: Visualized skin without rashes, cyanosis. Laceration is noted to the left face with periorbital ecchymosis, ecchymosis appreciated to the dorsal aspect of the left hand without associated tenderness or skin breaks Neuro: Symmetrical facies, symmetrical strength x 4 extremities, no sensory deficits. Psych: Appropriate for situation. MDM: This is a 74-year-old female patient presenting for evaluation after a fall downstairs. Differential includes but is not limited to traumatic injuries including intracranial hemorrhage, concussion, skull fracture, cervical spine fracture. She has a laceration, no evidence of facial bone instability, and the remainder of her trauma examination is reassuring against spinal cord injury, intrathoracic or abdominal injury, long bone fractures. I certainly considered medical etiologies for the cause of her fall including dysrhythmia, metabolic and electrolyte derangements, anemia, intoxication, withdrawal syndromes. We kept the c-collar in place, will obtain CT imaging of her head and C-spine, laboratory studies to include CBC, CMP, troponin, and magnesium. I will also obtain an EKG, and urinalysis. The patient did have a Blue placed briefly given the need for spinal precautions, she urgently had to use the bathroom but did not have any evidence of incontinence. ED Course: I independently interpreted the laboratory studies, which show no significant leukocytosis, anemia, or thrombocytopenia. The chemistry panel is without evidence of electrolyte abnormality, kidney dysfunction, or liver injury. Troponin negative, INR normal, urinalysis noninfectious. Tox screen positive only for an alcohol level of 199. Insulin pump and CGM in place, and no evidence on laboratory evaluation to increase my concern for diabetic ketoacidosis. Independently interpreted the patient's CT imaging, which shows no intracranial hemorrhage or cervical spine fracture. I am concerned for a closed head injury/concussion, and had a discussion regarding concussion care with the patient and her family member. The patient road tested successfully and tolerated p.o. intake, but endorses running out of her home insulin for her pump. I did provide her with a prescription for a Humalog insulin vial, and the patient has adequate knowledge of her pump and dosing regimen to continue doing so independently. Her laceration of her eyebrow was closed using skin glue and Steri-Strips. The patient will be going home with her family member, will not be driving, and will be monitored in the home environment by family. I did encourage her to decrease her alcohol use in the setting of her likely concussion, and follow-up with her primary care provider. At this time, the patient has had a full medical evaluation and is safe for discharge to home. They are hemodynamically stable, ambulatory, and tolerating PO. They are understanding of the follow-up plan and return precautions. They left our facility without incident. Sherley Mcconnell MD Related Data Home Medications ?Medication ?Instructions ?Recorded ?Confirmed cholecalciferol (vitamin D3) 50 2,000 unit PO DAILY 05/25/22 06/26/24 mcg (2,000 unit) tablet clobetasol 0.05 % topical ointment 1 applic topical BID 05/25/22 06/26/24 cyanocobalamin (vitamin B-12) 500 500 mcg PO DIRECTED 05/25/22 06/26/24 mcg tablet (Vitamin B-12) ezetimibe 10 mg tablet 10 mg PO DAILY 05/25/22 06/26/24 ferrous sulfate 325 mg (65 mg 325 mg PO DIRECTED 05/25/22 06/26/24 iron) tablet (iron) fluocinolone 0.01 % topical 1 applic topical DIRECTED 05/25/22 06/26/24 solution (Synalar) insulin detemir U-100 100 unit/mL 25 unit subcut DIRECTED PRN 05/25/22 06/26/24 subcutaneous solution (Levemir U-100 Insulin) insulin lispro 100 unit/mL 25 unit subcut DAILY 05/25/22 06/26/24 subcutaneous cartridge levothyroxine 100 mcg tablet 100 mcg PO DAILY 05/25/22 06/26/24 multivitamin 1 tab PO DAILY 05/25/22 06/26/24 simvastatin 20 mg tablet 20 mg PO DIRECTED 05/25/22 06/26/24 sertraline 50 mg tablet 100 mg PO DAILY 06/05/22 06/26/24 losartan 50 mg tablet 50 mg PO DAILY #90 tabs 06/19/23 06/26/24 sennosides 8.6 mg tablet (Natural 8.6 mg PO .QOD 10/16/23 06/26/24 Senna Laxative) fludrocortisone 0.1 mg tablet 0.05 mg PO DAILY 12/10/23 06/26/24 meclizine 50 mg tablet 50 mg PO BID 06/09/24 06/26/24 insulin lispro 100 unit/mL 1 sliding scale dose subcut 06/26/24 subcutaneous solution USEASDIRECTD #10 mL Previous Rx's ?Medication ?Instructions ?Recorded losartan 50 mg tablet 50 mg PO DAILY #90 tabs 06/19/23 insulin lispro 100 unit/mL 1 sliding scale dose subcut 06/26/24 subcutaneous solution USEASDIRECTD #10 mL Allergies Allergy/AdvReac Type Severity Reaction Status Date / Time sodium lauryl sulfate Allergy Intermediate lip Verified 06/09/24 10:48 swelling [id number] Reductase AdvReac Mild memory Verified 06/09/24 10:48 Inhibitor troubles escitalopram (From Lexapro) AdvReac Unknown Other (See Verified 06/09/24 10:48 Comment) General Stated Complaint: Trauma WING: 2 Course Vital Signs Vital signs: Vital Signs Temperature 36.4 C 06/26/24 21:09 Pulse 100 H 06/26/24 21:09 Respiratory Rate 16 06/26/24 21:09 Blood Pressure 167/80 H 06/26/24 21:09 Pulse Oximetry 97 06/26/24 21:09 Temperature 36.4 C 06/26/24 21:09 Temperature Source Temporal Artery Scan 06/26/24 21:09 Pulse 100 H 06/26/24 21:09 Respiratory Rate 16 06/26/24 21:09 Respiratory Effort Normal 06/26/24 21:53 Respiratory Depth Normal 06/26/24 21:53 Respiratory Pattern Normal 06/26/24 21:53 Blood Pressure 167/80 H 06/26/24 21:09 Blood Pressure Position Supine 06/26/24 21:09 Pulse Oximetry 97 06/26/24 21:09 Oxygen Delivery Method Room Air 06/26/24 21:09 Oxygen Flow Rate 0 06/26/24 21:09 Pain Level 0 06/26/24 21:09 Lab/Test Results Lab/Test Results: Laboratory Tests Range/Units 06/26/24 06/26/24 21:21 21:50 WBC (4.4-10.8) 10^3/uL 5.68 RBC (3.93-5.22) 10^6/uL 4.16 Hgb (11.2-15.7) g/dL 13.8 Hct (36.0-46.0) % 40.5 MCV (80-95) fL 97 H MCH (27.0-33.0) pg 33.2 H MCHC (32.0-36.0) % 34.1 RDW (11.7-14.6) % 12.6 Plt Count (130-400) 10^3/uL 196 MPV (8.0-11.0) fL 10.3 Immature Gran % % 0.2 Neutrophils % % 71.2 Lymphocytes % % 15.7 Monocytes % % 10.6 Eosinophils % % 1.2 Basophils % % 1.1 Nucleated RBC % (0.0-0.3) % 0.0 Absolute Neutrophils (1.2-6.7) 10^3/uL 4.05 Absolute Lymphocytes (1.2-3.4) 10^3/uL 0.89 L Absolute Monocytes (0.1-0.8) 10^3/uL 0.60 Absolute Eosinophils (0.0-0.7) 10^3/uL 0.07 Absolute Basophils (0.0-0.2) 10^3/uL 0.06 PT (9.1-11.1) sec 9.6 INR (0.9-1.1) 1.0 Sodium (136-145) mmol/L 141 Potassium (3.5-5.1) mmol/L 4.3 Chloride (98-107) mmol/L 100 Carbon Dioxide (21.0-32.0) mmol/L 30.3 Anion Gap (3-11) mmol/L 10.7 BUN (7-18) mg/dL 10 Creatinine (0.55-1.02) mg/dL 0.8 Est GFR (CKD-EPI 2020) (mL/min/1.73m2) 77.75 Glucose (74-106) mg/dL 259 H Calcium (8.5-10.1) mg/dL 9.3 Magnesium (1.8-2.4) mg/dL 2.0 Total Bilirubin (0.2-1.0) mg/dL 0.35 AST (15-37) U/L 32 ALT (14-59) U/L 35 Alkaline Phosphatase (46-116) U/L 84 Troponin I (<or=51) ng/L 4 Total Protein (6.4-8.2) g/dL 8.2 Albumin (3.4-5.0) g/dL 4.0 Urine Color (Yellow) Yellow Urine Clarity (Clear) Clear Urine pH (5-8) 6.0 Ur Specific [place] (1.005-1.025) 1.010 Urine Protein (Neg-Trace) mg/dL Negative Urine Ketones (Negative) mg/dL Negative Urine Blood (Negative) Negative Urine Nitrite (Negative) Negative Urine Bilirubin (Negative) Negative Urine Urobilinogen (Up to 0.2) mg/dL 0.2 Ur Leukocyte Esterase (Negative) Negative Urine Glucose (Negative) mg/dL 250 H Ethyl Alcohol (<10) mg/dL 199.5 H Medical Decision Making Quality:SDOH Health Related Social Needs: No Data to Display PFSH All Active Problems (Updated 06/26/24 @ 23:43 by Sherley Mcconnell MD) Eyebrow laceration (Acute) Fall (on) (from) other stairs and steps, initial encounter (Acute) Closed head injury (Acute) Cervical stenosis of spinal canal (Acute) Frequent falls (Acute) Orthostatic hypotension (Acute) Vestibular disorder (Acute) Peripheral neuropathy (Acute) Displaced fracture of lateral end of right clavicle (Acute) Medical History Melanoma in situ Vitamin B12 deficiency Hypertension Hyperlipidemia Hypothyroidism Type 1 diabetes Anxiety with depression Osteopenia Lichen sclerosus History of anemia Surgical History S/P hip replacement S/P ORIF (open reduction internal fixation) fracture S/P trigger finger release S/P carpal tunnel release S/P cataract extraction S/P cholecystectomy Family History Father Cancer Mother Dementia Social History Smoking/Tobacco Use Status: Never Smoking risk assessment performed?: Yes Alcohol Intake: current Alcohol Intake frequency: a few times a week Alcohol type: wine Drug use: Never Substance use type: does not use Household members: friend(s) Housing: house Number of Children: 3 current occupation: Retired RN What is your relationship status?: Panel score (0-1 are the most socially isolated patients): 0 Do you feel safe at home: Yes Do you feel safe in your relationship?: Yes
[2024-06-26 22:29] LABS: *AMPHETAMINES SCREEN URINE Negative (Negative); *BARBITURATES SCREEN URINE Negative (Negative); *BENZODIAZEPINES SCREEN URINE Negative (Negative); Cannabinoids THC Negative (Negative); Cocaine Screen,Urine Negative (Negative); METHADONE URINE SCREEN Negative (Negative); OPIATES URINE SCREEN Negative (Negative); Tricyclic Antidepressants Negative (Negative)
--- NOTE | 2024-06-26 22:43 | DI.VRAD_ITS ---
PROCEDURE INFORMATION: Exam: CT Head Without Contrast Exam date and time: 06/26/2024 10:07 PM Age: 74 years old Clinical indication: Injury or trauma; Fall; Blunt trauma (contusions or hematomas) TECHNIQUE: Imaging protocol: Computed tomography of the head without contrast. COMPARISON: CT HEAD WO 05/20/2024 1:11 PM FINDINGS: Brain: Cerebral volume loss noted. Scattered areas of decreased attenuation in the deep periventricular white matter consistent with small vessel ischemic change. No evidence for acute intracranial hemorrhage. Cerebral ventricles: No ventriculomegaly. Paranasal sinuses: Visualized sinuses are unremarkable. No fluid levels. Mastoid air cells: Visualized mastoid air cells are well aerated. Bones: Unremarkable. No acute fracture. Soft tissues: Left periorbital hematoma. Left frontal scalp hematoma. IMPRESSION: Senescent changes noted. No acute intracranial abnormality. PROCEDURE INFORMATION: Exam: CT Cervical Spine Without Contrast Exam date and time: 06/26/2024 10:07 PM Age: 74 years old Clinical indication: Injury or trauma; Fall; Blunt trauma (contusions or hematomas) TECHNIQUE: Imaging protocol: Computed tomography of the cervical spine without contrast. COMPARISON: MR CERVICAL SPINE WO 11/01/2023 12:31 PM FINDINGS: Bones: No acute fracture. Normal alignment. No significant disc bulge or herniation. No severe spinal canal stenosis. No significant neural foraminal narrowing. Lungs: Lung apices are normal. Soft tissues: Unremarkable. IMPRESSION: No evidence for acute posttraumatic abnormality. Dictated and Authenticated by: Myra Tolliver MD. Ordering:LYUBOV Estrada MD
[2024-06-26 23:40] LABS: Troponin I 4 ng/L (<or=51)
[2024-06-27] VITALS: O2SAT 93
[2024-06-27 00:01] VITALS: BP 125/45; PULSE 108; O2SAT 93
[2024-06-27 00:18] VITALS: BP 125/65; PULSE 109; RESP 18; TEMP 36.7; O2SAT 93
== END 2024-06-27 00:18 | disposition home or self-care (01) ==
PROVIDERS: Emergency Provider Emergency Medicine; PCP Nurse Practitioner Family
DX: S01.112A Laceration without foreign body of left eyelid and periocular area, initial encounter (principal); Z91.81 History of falling; W10.8XXA Fall (on) (from) other stairs and steps, initial encounter; E10.9 Type 1 diabetes mellitus without complications; I10 Essential (primary) hypertension
CPT/HCPCS: 51701; 80053; 80307; 99284; 70450; 72125; 80320; 81003; 83735; 84484; 85025; 85610

== ENCOUNTER 2024-07-14 12:22 | Inpatient (IN) | payer MEDICARE, BC, SELFPAY ==
[2024-07-14] VITALS (33 sets, daily range): BP systolic 93–143; BP diastolic 37–101; PULSE 81–103; RESP 9–23; TEMP 36.5–38; O2SAT 92–100
--- NOTE | 2024-07-14 12:15 | RT.EKG_ITS ---
APPROVED REPORT Exam: Resting ECG Reason for Exam: Nausea vomiting Patient Location: E HR:99 bpm ECG Measurements Heart Rate 99 AXIS NH 160 P 68 QRSd 100 QRS -64 QT 401 T 30 QTc 514 Conclusion Sinus rhythm...normal P axis, V-rate 60- 99 Left anterior fascicular block...axis(240,-40), init forces inf Prolonged QT interval...QTc >500mS Sinus rhythm rate of 99 interventricular conduction delay left axis no signs of LVH. Poor R wave pro gression. Prolonged QTc. NH within normal limits. QTc prolonged compared to prior. Prior dated st year.
[2024-07-14 12:46] LABS: BE (Venous) -7 mmol/L (-2-3); HCO3 (Venous) 20 mmol/L (23-28); O2 Sat (Venous) 65 %; TCO2 (Venous) 19 mmol/L (24-29); pCO2 (Venous) 45 mmHg (41-51); pH (Venous) 7.26 (7.31-7.41); pO2 (Venous) 40 mmHg
[2024-07-14 12:47] LABS: Abs Immature Grans 0.05 10^3/uL (0.0-0.06); Absolute Basophil Count 0.08 10^3/uL (0.0-0.2); Absolute Eosinophil Count 0.01 10^3/uL (0.0-0.7); Absolute Lymphocyte Count 0.96 10^3/uL (1.2-3.4); Absolute Neutrophil Count 10.57 10^3/uL (1.2-6.7); Basophils % 0.7 %; Eosinophils % 0.1 %; HCT 35.7 % (36.0-46.0); Immature Grans % 0.4 %; MCH 33.3 pg (27.0-33.0); MCHC 33.6 % (32.0-36.0); MCV 99 fL (80-95); MPV 10.6 fL (8.0-11.0); Monocytes % 2.5 %; Neutrophils % 88.3 %; Platelet Count 290 10^3/uL (130-400); RDW 12.7 % (11.7-14.6); RDW-SD 46.6 fL; WBC 11.97 10^3/uL (4.4-10.8)
[2024-07-14 13:07] LABS: Anion Gap 18.5 mmol/L (3-11); BUN 26 mg/dL (7-18); CO2 20.5 mmol/L (21.0-32.0); CREATININE 1.2 mg/dL (0.55-1.02); Calcium 9.2 mg/dL (8.5-10.1); Chloride 99 mmol/L (98-107); Potassium 4.9 mmol/L (3.5-5.1); Sodium 138 mmol/L (136-145); Troponin I 5 ng/L (<or=51)
[2024-07-14 13:09] LABS: Glucose 559 mg/dL (74-106)
--- NOTE | 2024-07-14 13:10 | ED.GENADUL_ITS ---
Discharge Plan Disposition Patient Disposition: Admit to [facility] Discharge Details Clinical Impression: DKA, type 1 Admit Date/Time: 07/14/24 14:06 Admit Provider: Mikal Zhou Attending Provider: Mikal Zhou Primary Care Provider: Danisha Ortiz ED Provider: Aaron Velasquez [facility] General Date/Time Provider Initiated Documentation: 07/14/24 12:27 . HPI Narrative: MDM This is a normothermic and not tachycardic 74-year-old female with type 1 diabetes and history concerning for DKA given nausea and vomiting hyperglycemia and exhausted insulin supply for which patient will have labs obtained. No pain out of proportion to suggest necrotizing soft tissue infection. Patient does have some healing ecchymosis to face from fall within the last month but no new trauma. No dysuria nor frequency however will obtain urinalysis to assess for UTI. No cough and clear lungs so doubt pneumothorax and pneumonia. Not altered to suggest benefit from head CT. 109 PM Reassuring troponin less than 99th percentile. Basic metabolic panel showing RONNI hyperglycemia anion gap decreased bicarbonate consistent with DKA in setting of acidemia. Will initiate DKA protocol. Will obtain urinalysis. Will replete potassium. I was in touch with Dr. Zhou from the hospitalist service to graciously agreed to accept the patient for hospitalization. I started insulin and also gave subcutaneous glargine. I updated patient on plan for hospitalization. Patient received total of 1 L of IV fluids in the emergency department. Urinalysis showed ketonuria. Chronic conditions affecting the care of the patient: Diabetes History obtained from an outside historian: Paramedics External record review: N/A Medications: Insulin potassium Social determinants of health affecting disposition: N/A Management discussed with: Hospitalist Treatment/interventions considered: N/A Response to therapies provided: Improved symptoms in the ED HPI This is a 74-year-old type I diabetic right emergency department via EMS in the setting of pump malfunction. Patient reportedly ran out of her home Humalog last night. She went to bed and took some glargine this morning. She has a prescription at her pharmacy for Humalog. She denies chest pain cough fevers chills dysuria and frequency. She is no longer feeling nauseous. No recent falls but did fall several weeks ago for which she was seen and received Steri-Strips for laceration above her left eye. Exam General: Well-appearing in no acute distress speaking in complete sentences. Head: Normocephalic, atraumatic. Eye: Extraocular eye movements intact. No conjunctival injection. No scleral icterus. Ear, nose, mouth, throat: Ecchymosis around left eye with Steri-Strips in place above left eye. Normal voice, handling secretions normally. Neck: Trachea midline. Cardiovascular: Well-perfused distal extremities. Regular rate and rhythm. Respiratory: Nonlabored respiration. Clear lungs bilaterally Gastrointestinal: Nondistended abdomen. Soft nontender Musculoskeletal: No edema. Moving all 4 extremities spontaneously. Skin: Normal for age and race, grossly normal temperature and turgor. No acute rash. Neurologic: Alert and appropriate, no apparent acute deficits. Psychiatric: Mood and manner are appropriate. Grooming and personal hygiene are appropriate. Related Data Home Medications ?Medication ?Instructions ?Recorded ?Confirmed cholecalciferol (vitamin D3) 50 2,000 unit PO DAILY 05/25/22 07/14/24 mcg (2,000 unit) tablet clobetasol 0.05 % topical ointment 1 applic topical BID 05/25/22 07/14/24 cyanocobalamin (vitamin B-12) 500 500 mcg PO DIRECTED 05/25/22 07/14/24 mcg tablet (Vitamin B-12) ezetimibe 10 mg tablet 10 mg PO DAILY 05/25/22 07/14/24 ferrous sulfate 325 mg (65 mg 325 mg PO DIRECTED 05/25/22 07/14/24 iron) tablet (iron) fluocinolone 0.01 % topical 1 applic topical DIRECTED 05/25/22 07/14/24 solution (Synalar) insulin detemir U-100 100 unit/mL 25 unit subcut DIRECTED PRN 05/25/22 07/14/24 subcutaneous solution (Levemir U-100 Insulin) insulin lispro 100 unit/mL 25 unit subcut DAILY 05/25/22 07/14/24 subcutaneous cartridge levothyroxine 100 mcg tablet 100 mcg PO DAILY 05/25/22 07/14/24 multivitamin 1 tab PO DAILY 05/25/22 07/14/24 simvastatin 20 mg tablet 20 mg PO DIRECTED 05/25/22 07/14/24 sertraline 50 mg tablet 100 mg PO DAILY 06/05/22 07/14/24 losartan 50 mg tablet 50 mg PO DAILY #90 tabs 06/19/23 07/14/24 sennosides 8.6 mg tablet (Natural 8.6 mg PO .QOD 10/16/23 07/14/24 Senna Laxative) insulin lispro 100 unit/mL 1 sliding scale dose subcut 06/26/24 07/14/24 subcutaneous solution USEASDIRECTD #10 mL Previous Rx's ?Medication ?Instructions ?Recorded losartan 50 mg tablet 50 mg PO DAILY #90 tabs 06/19/23 insulin lispro 100 unit/mL 1 sliding scale dose subcut 06/26/24 subcutaneous solution USEASDIRECTD #10 mL Allergies Allergy/AdvReac Type Severity Reaction Status Date / Time sodium lauryl sulfate Allergy Intermediate lip Verified 07/14/24 12:28 swelling [id number] Reductase AdvReac Mild memory Verified 07/14/24 12:28 Inhibitor troubles escitalopram (From Lexapro) AdvReac Unknown Other (See Verified 07/14/24 12:28 Comment) General Stated Complaint: Nausea/Vomit/Diar WING: 3 Course Vital Signs Vital signs: Vital Signs Temperature 36.5 C 07/14/24 12:24 Pulse 102 H 07/14/24 12:24 Respiratory Rate 16 07/14/24 12:24 Blood Pressure 118/49 L 07/14/24 12:24 Pulse Oximetry 97 07/14/24 12:24 Temperature 36.5 C 07/14/24 12:24 Pulse 102 H 07/14/24 12:31 Pulse 103 H 07/14/24 12:40 Respiratory Rate 15 07/14/24 12:40 Respiratory Effort Normal 07/14/24 12:27 Blood Pressure 110/40 L 07/14/24 12:31 Blood Pressure Mean 43 07/14/24 12:31 Pulse Oximetry 97 07/14/24 12:40 Lab/Test Results Lab/Test Results: Laboratory Tests Range/Units 07/14/24 12:40 WBC (4.4-10.8) 10^3/uL 11.97 H RBC (3.93-5.22) 10^6/uL 3.60 L Hgb (11.2-15.7) g/dL 12.0 Hct (36.0-46.0) % 35.7 L MCV (80-95) fL 99 H MCH (27.0-33.0) pg 33.3 H MCHC (32.0-36.0) % 33.6 RDW (11.7-14.6) % 12.7 Plt Count (130-400) 10^3/uL 290 MPV (8.0-11.0) fL 10.6 Immature Gran % % 0.4 Neutrophils % % 88.3 Lymphocytes % % 8.0 Monocytes % % 2.5 Eosinophils % % 0.1 Basophils % % 0.7 Nucleated RBC % (0.0-0.3) % 0.0 Absolute Neutrophils (1.2-6.7) 10^3/uL 10.57 H Absolute Lymphocytes (1.2-3.4) 10^3/uL 0.96 L Absolute Monocytes (0.1-0.8) 10^3/uL 0.30 Absolute Eosinophils (0.0-0.7) 10^3/uL 0.01 Absolute Basophils (0.0-0.2) 10^3/uL 0.08 VBG pH (7.31-7.41) 7.26 L VBG pCO2 (41-51) mmHg 45 VBG pO2 mmHg 40 VBG HCO3 (23-28) mmol/L 20 L VBG Total CO2 (24-29) mmol/L 19 L VBG O2 Saturation % 65 VBG Base Excess (-2-3) mmol/L -7 L Sodium (136-145) mmol/L 138 Potassium (3.5-5.1) mmol/L 4.9 Chloride (98-107) mmol/L 99 Carbon Dioxide (21.0-32.0) mmol/L 20.5 L Anion Gap (3-11) mmol/L 18.5 H BUN (7-18) mg/dL 26 H Creatinine (0.55-1.02) mg/dL 1.2 H Est GFR (CKD-EPI 2020) (mL/min/1.73m2) 47.80 Glucose (74-106) mg/dL 559 H* Calcium (8.5-10.1) mg/dL 9.2 Troponin I (<or=51) ng/L 5 Medical Decision Making Quality:SDOH Health Related Social Needs: No Data to Display Critical Care Time Critical Care Time Critical Care Time: Yes Total Critical Care Time: 45 Attestation: Diabetic ketoacidosis management IV fluids bedside reassessments PFSH All Active Problems DKA, type 1 (Acute) Eyebrow laceration (Acute) Fall (on) (from) other stairs and steps, initial encounter (Acute) Closed head injury (Acute) Cervical stenosis of spinal canal (Acute) Frequent falls (Acute) Orthostatic hypotension (Acute) Vestibular disorder (Acute) Peripheral neuropathy (Acute) Displaced fracture of lateral end of right clavicle (Acute) Medical History Melanoma in situ Vitamin B12 deficiency Hypertension Hyperlipidemia Hypothyroidism Type 1 diabetes Anxiety with depression Osteopenia Lichen sclerosus History of anemia Surgical History S/P hip replacement S/P ORIF (open reduction internal fixation) fracture S/P trigger finger release S/P carpal tunnel release S/P cataract extraction S/P cholecystectomy Family History Father Cancer Mother Dementia Social History Smoking/Tobacco Use Status: Never Smoking risk assessment performed?: Yes Alcohol Intake: current Alcohol Intake frequency: a few times a week Alcohol type: wine Drug use: Never Substance use type: does not use Household members: friend(s) Housing: house Number of Children: 3 current occupation: Retired RN What is your relationship status?: Panel score (0-1 are the most socially isolated patients): 0 Do you feel safe at home: Yes Do you feel safe in your relationship?: Yes
[2024-07-14] MEDS: Insulin Glargine 100 UNITS/ML UNIT 19 UNITS SC (13:39)
[2024-07-14] MEDS: INSULIN REGULAR IN 0.9 % NACL 100 UNIT/100 ML BAG IVINF ×2 (13:40→14:26)
[2024-07-14] MEDS: POTASSIUM CHLORIDE/0.9% NACL 1,000 ML 1000 MEQ IV (13:59)
[2024-07-14 14:09] LABS: Bilirubin Negative (Negative); Blood Negative (Negative); Clarity Clear (Clear); Glucose 500 mg/dL (Negative); Ketones 80 mg/dL (Negative); Leukocyte Esterase Negative (Negative); Nitrite Negative (Negative); Specific Gravity 1.015 (1.005-1.025); Urobilinogen 0.2 mg/dL (Up to 0.2); pH 5.5 (5-8)
[2024-07-14 14:18] LABS: Magnesium 1.9 mg/dL (1.8-2.4)
[2024-07-14] MEDS: POTASSIUM CHLORIDE/0.9% NACL 1,000 ML 150 MEQ IV ×2 (14:25→18:46)
--- NOTE | 2024-07-14 14:29 | W.PM.HP.N ---
Date of service: 07/14/24 Time of Service: 14:29 Assessment and Plan Assessment and plan (1) Orthostatic hypotension: Status: Acute Assessment and plan: Blood pressure at this time is 143/63. Has not checked orthostatics but prior to discharge we will check. Patient does have a history of multiple falls including a month ago. She does see a neurologist in the outpatient setting for this as well as other issues (2) DKA, type 1: Status: Acute Assessment and plan: I placed the patient on the DKA protocol. patient's VBG does show respiratory acidosis. (3) Vestibular disorder: Status: Acute Assessment and plan: As mentioned above patient does have a neurologist as she was last seen in May of this year. (4) Eyebrow laceration: Status: Acute Assessment and plan: Will review the ED records to see if we can remove the stiches/saba (5) Hyperlipidemia: Assessment and plan: continue with ezetimide and statin. (6) Hypertension: Assessment and plan: Pt with mild/moderate htn today. Restart home meds and monitor for improvements (7) Anxiety with depression: Assessment and plan: c/w medical management (8) Hypothyroidism: Assessment and plan: cw medical management. Currently on levothyroxine at 100mcg per day. (9) Vitamin B12 deficiency: Assessment and plan: Pt does get supplementation in the outpatient setting. pt started on lovenox for dvtp History of Present Illness History of Present Illness Chief Complaint: weakness and nausea Narrative: This is a 74-year-old female who has a 50-year history of diabetes type 1, presented to the ED when she noticed that she had run out of her insulin pump but no new cartridges. This event happened last night and she tried it covers up with the Lantus with only minimal help and came to the ED for evaluation and treatment. Workup in the ED was consistent with DKA as she was subsequently admitted to the hospital service for further evaluation and treatment. Patient will be admitted to the ICU on DKA protocol. In regards to her review of systems she does have polydipsia but denies significant polyphasia or polyuria. Patient does have a local director of business applications that she sees for diabetes management. Further note the patient had a fall approximately a month ago that was evaluated in our ED and was diagnosed with concussion at that time as well as lacerations. Review of Systems All systems reviewed & are unremarkable except as noted in HPI and below PFSH All Active Problems DKA, type 1 (Acute) Eyebrow laceration (Acute) Fall (on) (from) other stairs and steps, initial encounter (Acute) Closed head injury (Acute) Cervical stenosis of spinal canal (Acute) Frequent falls (Acute) Orthostatic hypotension (Acute) Vestibular disorder (Acute) Peripheral neuropathy (Acute) Displaced fracture of lateral end of right clavicle (Acute) Medical History Melanoma in situ Vitamin B12 deficiency Hypertension Hyperlipidemia Hypothyroidism Type 1 diabetes Anxiety with depression Osteopenia Lichen sclerosus History of anemia Surgical History S/P hip replacement S/P ORIF (open reduction internal fixation) fracture S/P trigger finger release S/P carpal tunnel release S/P cataract extraction S/P cholecystectomy Family History Father Cancer Mother Dementia Social History Smoking/Tobacco Use Status: Never Smoking risk assessment performed?: Yes Alcohol Intake: current Alcohol Intake frequency: a few times a week Alcohol type: wine Drug use: Never Substance use type: does not use Household members: friend(s) Housing: house Number of Children: 3 current occupation: Retired RN What is your relationship status?: Panel score (0-1 are the most socially isolated patients): 0 Do you feel safe at home: Yes Do you feel safe in your relationship?: Yes Meds Allergies and Home Medications Allergies Allergy/AdvReac Type Severity Reaction Status Date / Time sodium lauryl sulfate Allergy Intermediate lip Verified 07/14/24 12:28 swelling [id number]-[id number] Reductase AdvReac Mild memory Verified 07/14/24 12:28 Inhibitor troubles escitalopram (From Lexapro) AdvReac Unknown Other (See Verified 07/14/24 12:28 Comment) Home Medications ?Medication ?Instructions ?Recorded ?Confirmed ?Type cholecalciferol (vitamin D3) 50 2,000 unit PO DAILY 05/25/22 07/14/24 History mcg (2,000 unit) tablet clobetasol 0.05 % topical ointment 1 applic topical BID 05/25/22 07/14/24 History cyanocobalamin (vitamin B-12) 500 500 mcg PO DIRECTED 05/25/22 07/14/24 History mcg tablet (Vitamin B-12) ezetimibe 10 mg tablet 10 mg PO DAILY 05/25/22 07/14/24 History ferrous sulfate 325 mg (65 mg 325 mg PO DIRECTED 05/25/22 07/14/24 History iron) tablet (iron) fluocinolone 0.01 % topical 1 applic topical DIRECTED 05/25/22 07/14/24 History solution (Synalar) insulin detemir U-100 100 unit/mL 25 unit subcut DIRECTED PRN 05/25/22 07/14/24 History subcutaneous solution (Levemir U-100 Insulin) insulin lispro 100 unit/mL 25 unit subcut DAILY 05/25/22 07/14/24 History subcutaneous cartridge levothyroxine 100 mcg tablet 100 mcg PO DAILY 05/25/22 07/14/24 History multivitamin 1 tab PO DAILY 05/25/22 07/14/24 History simvastatin 20 mg tablet 20 mg PO DIRECTED 05/25/22 07/14/24 History sertraline 50 mg tablet 100 mg PO DAILY 06/05/22 07/14/24 History losartan 50 mg tablet 50 mg PO DAILY #90 tabs 06/19/23 07/14/24 Rx sennosides 8.6 mg tablet (Natural 8.6 mg PO .QOD 10/16/23 07/14/24 History Senna Laxative) insulin lispro 100 unit/mL 1 sliding scale dose subcut 06/26/24 07/14/24 Rx subcutaneous solution USEASDIRECTD #10 mL Exam Narrative Exam Narrative: Eyes ears nose and throat: Patient does have stitches underlying saba overlying her left eyebrow. She also has alford signs bilaterally mucous membranes moist extraocular motions are intact pupils equal round reactive to light Neck: No lymphadenopathy thyroid megaly no JVD Cardiac: Mild tachycardia no murmur rubs gallops Pulmonary: Clear to auscultation bilaterally with no accessory muscle use speaking in complete sentences Abdomen: Soft nontender nondistended bowel sounds are active Extremities: No cyanosis clubbing or edema bilaterally Neurologic: Cranial nerves II through XII intact as tested reflexes in upper extremity normal as tested Psych: Alert and oriented x 3 no apparent distress normal speech patterns Results Labs 07/14/24 12:40 07/14/24 12:40 Labs: Laboratory Results - last 24 hr 07/14/24 07/14/24 07/14/24 12:40 13:27 13:52 WBC 11.97 H RBC 3.60 L Hgb 12.0 Hct 35.7 L MCV 99 H MCH 33.3 H MCHC 33.6 RDW 12.7 Plt Count 290 MPV 10.6 Immature Gran % 0.4 Neutrophils % 88.3 Lymphocytes % 8.0 Monocytes % 2.5 Eosinophils % 0.1 Basophils % 0.7 Nucleated RBC % 0.0 Absolute Neutrophils 10.57 H Absolute Lymphocytes 0.96 L Absolute Monocytes 0.30 Absolute Eosinophils 0.01 Absolute Basophils 0.08 VBG pH 7.26 L VBG pCO2 45 VBG pO2 40 VBG HCO3 20 L VBG Total CO2 19 L VBG O2 Saturation 65 VBG Base Excess -7 L Sodium 138 Potassium 4.9 Chloride 99 Carbon Dioxide 20.5 L Anion Gap 18.5 H BUN 26 H Creatinine 1.2 H Est GFR (CKD-EPI 2020) 47.80 Glucose 559 H* Calcium 9.2 Magnesium 1.9 Troponin I 5 Cancelled Urine Color Yellow Urine Clarity Clear Urine pH 5.5 Ur Specific Barnett 1.015 Urine Protein Negative Urine Ketones 80 H Urine Blood Negative Urine Nitrite Negative Urine Bilirubin Negative Urine Urobilinogen 0.2 Ur Leukocyte Esterase Negative Urine Glucose 500 H 07/14/24 15:27 WBC RBC Hgb Hct MCV MCH MCHC RDW Plt Count MPV Immature Gran % Neutrophils % Lymphocytes % Monocytes % Eosinophils % Basophils % Nucleated RBC % Absolute Neutrophils Absolute Lymphocytes Absolute Monocytes Absolute Eosinophils Absolute Basophils VBG pH VBG pCO2 VBG pO2 VBG HCO3 VBG Total CO2 VBG O2 Saturation VBG Base Excess Sodium Potassium Chloride Carbon Dioxide Anion Gap BUN Creatinine Est GFR (CKD-EPI 2020) Glucose Calcium Magnesium Troponin I Cancelled Urine Color Urine Clarity Urine pH Ur Specific Barnett Urine Protein Urine Ketones Urine Blood Urine Nitrite Urine Bilirubin Urine Urobilinogen Ur Leukocyte Esterase Urine Glucose Last Vital Signs Temp 36.5 C 07/14/24 12:24 Pulse 100 H 07/14/24 14:25 Resp 20 11/18/24 14:25 BP 143/63 H 11/18/24 14:25 Pulse Ox 96 07/14/24 13:40 Time Spent Time spent with Patient: 40-54 minutes Time was spent: preparing to see the patient(eg.review tests), obtaining and/or reviewing separately otained hiistory, ordering medications,tests, procedures, referring, communicating with other health medicare specialist, indepentently interpreting results, counseling the patient and care coordination
[2024-07-14 14:35] LABS: PHOSPHORUS 4.5 mg/dL (2.6-4.7)
[2024-07-14 14:39] LABS: Anion Gap 19.4 mmol/L (3-11); BUN 27 mg/dL (7-18); CO2 19.6 mmol/L (21.0-32.0); CREATININE 1.2 mg/dL (0.55-1.02); Calcium 8.9 mg/dL (8.5-10.1); Chloride 101 mmol/L (98-107); Potassium 4.7 mmol/L (3.5-5.1); Sodium 140 mmol/L (136-145)
[2024-07-14 14:53] LABS: Glucose 535 mg/dL (74-106)
--- NOTE | 2024-07-14 15:37 | PHA.REVIEW2 ---
Pharmacy Admission Review Admission Clinical Review Admission Pharmacy Review: DKA, type 1 (Acute) Eyebrow laceration (Acute) Orthostatic hypotension (Acute) Vestibular disorder (Acute) sodium lauryl sulfate Allergy (Intermediate, Verified 07/14/24 12:28) lip swelling [id number] Reductase Inhibitor Adverse Reaction (Mild, Verified 07/14/24 12:28) memory troubles escitalopram (From Lexapro) Adverse Reaction (Unknown, Verified 07/14/24 12:28) Other (See Comment) Resuscitation Status Full Code Height 5 ft 8 in Weight 63.1 kg Pharmacy Admission Review Renal Dosing Renal Dosing: BUN 27 mg/dL (7-18) H 07/14/24 14:03 Creatinine 1.2 mg/dL (0.55-1.02) H 07/14/24 14:03 Medications needing adjustments: Reviewed (CrCl 40.8 mL/min) List of meds needing interventions: Current medications are okay Anticoagulation Anticoagulation: Hgb 12.0 g/dL (11.2-15.7) 07/14/24 12:40 Hct 35.7 % (36.0-46.0) L 07/14/24 12:40 Plt Count 290 10^3/uL (130-400) 07/14/24 12:40 Creatinine 1.2 mg/dL (0.55-1.02) H 07/14/24 14:03 DVT Prophylaxis: Reviewed Medications: Enoxaparin (40mg daily) Relevant Labs Relevant Labs: Sodium 140 mmol/L (136-145) 07/14/24 14:03 Potassium 4.7 mmol/L (3.5-5.1) 07/14/24 14:03 Chloride 101 mmol/L (98-107) 07/14/24 14:03 Phosphorus 4.5 mg/dL (2.6-4.7) 07/14/24 12:40 Magnesium 1.9 mg/dL (1.8-2.4) 07/14/24 12:40 Electrolytes, C-Reactive P, ESR: Reviewed (WBC 11.97) DM Control DM Control: Glucose 535 mg/dL (74-106) H* 07/14/24 14:03 Finger Stick Blood Glucose 452 1440 Finger Stick Blood Glucose 452 1440 Finger Stick Blood Glucose 542 1340 Finger Stick Blood Glucose 542 1340 Finger Stick Blood Glucose 542 1339 Finger Stick Blood Glucose 509 1229 Finger Stick Blood Glucose 509 1229 DM Control: Reviewed (admitted to ICU for DKA) Insulin Dosing, Diabetic Medication: Patient currently on insulin drip at 1.5 units/hr with dextrose in 1/2 NS infusion and potassium infusion. Cardiac Review Cardiac Review: Troponin I Cancelled 07/14/24 15:27 Blood Pressure : Heart Rate 135/48 : 96 1432 Blood Pressure : Heart Rate 143/63 : 100 1425 Blood Pressure : Heart Rate 110/47 : 96 1331 Blood Pressure : Heart Rate 106/67 : 97 1316 Blood Pressure : Heart Rate 116/42 : 102 1300 Blood Pressure : Heart Rate 111/39 : 99 1246 Blood Pressure : Heart Rate 110/40 : 102 1231 Blood Pressure : Heart Rate 118/49 : 102 1224 BP, HR, EF%: Reviewed List meds needing interventions: Has order for losartan 50mg daily QTc Review QTc: Reviewed (EKG report pending) IV to PO Switch IV Medications: Reviewed (insulin drip) Home Meds Home Med List reviewed: Intervened Relevent Home Meds Not ordered & why?: insulin detemir and insulin aspart - currently on insulin drip for DKA Changed clobetasol ointment and fluocinolone solution to patients own meds. Will need to be brought in if patient wants to use while inpatient. Called nursing to confirm what days of the week the patient takes ferrous sulfate and simvastatin (takes 3x a week per home med list). Waiting to hear back. Current Meds Current Medication Order Review: Intervened Comments: Changed timing of levothyroxine from 0830 to 0600 per pharmacy protocol Added IV admission order set
--- NOTE | 2024-07-14 16:10 | W.PC.ACHO ---
Registration Status: Primary Language: Preferred Language: ED Information & Data Chief Complaint Nausea/Vomit/Diar 07/14/24 13:11 Other Complaint Diabetes 07/14/24 12:24 Triage Note pt reports out of insulin 07/14/24 12:24 yesterday, started vomiting, BS reported to be >400. weakness, hypotensive, elevated BG per EMS Medical / Surgical History (Last Reviewed 07/14/24 @ 14:34 by Mikal Zhou MD) Melanoma in situ Vitamin B12 deficiency Hypertension Hyperlipidemia Hypothyroidism Type 1 diabetes Anxiety with depression Osteopenia Lichen sclerosus History of anemia (Last Reviewed 07/14/24 @ 14:34 by Mikal Zhou MD) S/P hip replacement S/P ORIF (open reduction internal fixation) fracture S/P trigger finger release S/P carpal tunnel release S/P cataract extraction S/P cholecystectomy Most Recent Vital Signs Temperature 37.0 C 07/14/24 14:55 Pulse 91 H 07/14/24 14:55 Pulse 99 H 07/14/24 14:40 Respiratory Rate 13 07/14/24 14:55 Respiratory Effort Normal 07/14/24 14:55 Respiratory Depth Normal 07/14/24 14:55 Respiratory Pattern Normal 07/14/24 14:55 Blood Pressure 116/101 H 07/14/24 14:55 Blood Pressure Mean 106 07/14/24 14:55 Blood Pressure Position Sitting 07/14/24 14:55 Pulse Oximetry 95 07/14/24 14:55 Oxygen Delivery Method Room Air 07/14/24 14:55 Oxygen Flow Rate 0 07/14/24 14:55 Pain Level 0 07/14/24 14:55 Allergies sodium lauryl sulfate Allergy (Intermediate, Verified 07/14/24 12:28) lip swelling [id number] Reductase Inhibitor Adverse Reaction (Mild, Verified 07/14/24 12:28) memory troubles escitalopram (From Lexapro) Adverse Reaction (Unknown, Verified 07/14/24 12:28) Other (See Comment) Active Medications Generic Name Dose Route Start Last Admin Trade Name Freq PRN Reason Stop Dose Admin Potassium Chloride/Sodium Chloride 1,000 mls @ 150 mls/hr 07/14/24 14:15 07/14/24 14:25 Kcl 20meq/Ns IV 150 mls/hr INFUSION GUNNAR Administration Insulin Human Regular 100 unit in 100 mls @ 2 mls/hr 07/14/24 14:15 07/14/24 15:56 Myxredlin IVINF 1 unit/hr INFUSION GUNNAR 1 mls/hr Titration Protocol 2 UNIT/HR IV IV Catheter Type [Right Saline Lock Antecubital] IV Catheter Gauge [Left] 20 IV Catheter Gauge [Right 18 Antecubital] Diet Orders Category Date Time Status Diabetes Consistent CHO/Heart Healthy [DIET] Nutrition 07/14/24 Dinner Active Diagnostics 07/14/24 07/14/24 07/14/24 Range/Units 23:15 22:15 22:15 WBC (4.4-10.8) 10^3/uL RBC (3.93-5.22) 10^6/uL Hgb (11.2-15.7) g/dL Hct (36.0-46.0) % MCV (80-95) fL MCH (27.0-33.0) pg MCHC (32.0-36.0) % RDW (11.7-14.6) % Plt Count (130-400) 10^3/uL MPV (8.0-11.0) fL Immature Gran % % Neutrophils % % Lymphocytes % % Monocytes % % Eosinophils % % Basophils % % Nucleated RBC % (0.0-0.3) % Absolute Neutrophils (1.2-6.7) 10^3/uL Absolute Lymphocytes (1.2-3.4) 10^3/uL Absolute Monocytes (0.1-0.8) 10^3/uL Absolute Eosinophils (0.0-0.7) 10^3/uL Absolute Basophils (0.0-0.2) 10^3/uL VBG pH (7.31-7.41) VBG pCO2 (41-51) mmHg VBG pO2 mmHg VBG HCO3 (23-28) mmol/L VBG Total CO2 (24-29) mmol/L VBG O2 Saturation % VBG Base Excess (-2-3) mmol/L Sodium Cancelled (136-145) mmol/L Potassium Cancelled (3.5-5.1) mmol/L Chloride Cancelled (98-107) mmol/L Carbon Dioxide Cancelled (21.0-32.0) mmol/L Anion Gap Cancelled (3-11) mmol/L BUN Cancelled (7-18) mg/dL Creatinine Cancelled (0.55-1.02) mg/dL Est GFR (CKD-EPI 2020) Cancelled (mL/min/1.73m2) Glucose Cancelled Pending (74-106) mg/dL Calcium Cancelled Pending Cancelled (8.5-10.1) mg/dL Phosphorus (2.6-4.7) mg/dL Magnesium (1.8-2.4) mg/dL Troponin I (<or=51) ng/L Urine Color (Yellow) Urine Clarity (Clear) Urine pH (5-8) Ur Specific [place] (1.005-1.025) Urine Protein (Neg-Trace) mg/dL Urine Ketones (Negative) mg/dL Urine Blood (Negative) Urine Nitrite (Negative) Urine Bilirubin (Negative) Urine Urobilinogen (Up to 0.2) mg/dL Ur Leukocyte Esterase (Negative) Urine Glucose (Negative) mg/dL 07/14/24 07/14/24 07/14/24 Range/Units 22:15 22:15 22:15 WBC (4.4-10.8) 10^3/uL RBC (3.93-5.22) 10^6/uL Hgb (11.2-15.7) g/dL Hct (36.0-46.0) % MCV (80-95) fL MCH (27.0-33.0) pg MCHC (32.0-36.0) % RDW (11.7-14.6) % Plt Count (130-400) 10^3/uL MPV (8.0-11.0) fL Immature Gran % % Neutrophils % % Lymphocytes % % Monocytes % % Eosinophils % % Basophils % % Nucleated RBC % (0.0-0.3) % Absolute Neutrophils (1.2-6.7) 10^3/uL Absolute Lymphocytes (1.2-3.4) 10^3/uL Absolute Monocytes (0.1-0.8) 10^3/uL Absolute Eosinophils (0.0-0.7) 10^3/uL Absolute Basophils (0.0-0.2) 10^3/uL VBG pH (7.31-7.41) VBG pCO2 (41-51) mmHg VBG pO2 mmHg VBG HCO3 (23-28) mmol/L VBG Total CO2 (24-29) mmol/L VBG O2 Saturation % VBG Base Excess (-2-3) mmol/L Sodium (136-145) mmol/L Potassium (3.5-5.1) mmol/L Chloride (98-107) mmol/L Carbon Dioxide (21.0-32.0) mmol/L Anion Gap (3-11) mmol/L BUN Pending (7-18) mg/dL Creatinine Pending Cancelled (0.55-1.02) mg/dL Est GFR (CKD-EPI 2020) Pending Cancelled (mL/min/1.73m2) Glucose Cancelled (74-106) mg/dL Calcium (8.5-10.1) mg/dL Phosphorus (2.6-4.7) mg/dL Magnesium (1.8-2.4) mg/dL Troponin I (<or=51) ng/L Urine Color (Yellow) Urine Clarity (Clear) Urine pH (5-8) Ur Specific [place] (1.005-1.025) Urine Protein (Neg-Trace) mg/dL Urine Ketones (Negative) mg/dL Urine Blood (Negative) Urine Nitrite (Negative) Urine Bilirubin (Negative) Urine Urobilinogen (Up to 0.2) mg/dL Ur Leukocyte Esterase (Negative) Urine Glucose (Negative) mg/dL 07/14/24 07/14/24 07/14/24 Range/Units 22:15 22:15 22:15 WBC (4.4-10.8) 10^3/uL RBC (3.93-5.22) 10^6/uL Hgb (11.2-15.7) g/dL Hct (36.0-46.0) % MCV (80-95) fL MCH (27.0-33.0) pg MCHC (32.0-36.0) % RDW (11.7-14.6) % Plt Count (130-400) 10^3/uL MPV (8.0-11.0) fL Immature Gran % % Neutrophils % % Lymphocytes % % Monocytes % % Eosinophils % % Basophils % % Nucleated RBC % (0.0-0.3) % Absolute Neutrophils (1.2-6.7) 10^3/uL Absolute Lymphocytes (1.2-3.4) 10^3/uL Absolute Monocytes (0.1-0.8) 10^3/uL Absolute Eosinophils (0.0-0.7) 10^3/uL Absolute Basophils (0.0-0.2) 10^3/uL VBG pH (7.31-7.41) VBG pCO2 (41-51) mmHg VBG pO2 mmHg VBG HCO3 (23-28) mmol/L VBG Total CO2 (24-29) mmol/L VBG O2 Saturation % VBG Base Excess (-2-3) mmol/L Sodium (136-145) mmol/L Potassium (3.5-5.1) mmol/L Chloride Pending (98-107) mmol/L Carbon Dioxide Pending Cancelled (21.0-32.0) mmol/L Anion Gap Pending Cancelled (3-11) mmol/L BUN Cancelled (7-18) mg/dL Creatinine (0.55-1.02) mg/dL Est GFR (CKD-EPI 2020) (mL/min/1.73m2) Glucose (74-106) mg/dL Calcium (8.5-10.1) mg/dL Phosphorus (2.6-4.7) mg/dL Magnesium (1.8-2.4) mg/dL Troponin I (<or=51) ng/L Urine Color (Yellow) Urine Clarity (Clear) Urine pH (5-8) Ur Specific [place] (1.005-1.025) Urine Protein (Neg-Trace) mg/dL Urine Ketones (Negative) mg/dL Urine Blood (Negative) Urine Nitrite (Negative) Urine Bilirubin (Negative) Urine Urobilinogen (Up to 0.2) mg/dL Ur Leukocyte Esterase (Negative) Urine Glucose (Negative) mg/dL 07/14/24 07/14/24 07/14/24 Range/Units 22:15 22:15 22:15 WBC (4.4-10.8) 10^3/uL RBC (3.93-5.22) 10^6/uL Hgb (11.2-15.7) g/dL Hct (36.0-46.0) % MCV (80-95) fL MCH (27.0-33.0) pg MCHC (32.0-36.0) % RDW (11.7-14.6) % Plt Count (130-400) 10^3/uL MPV (8.0-11.0) fL Immature Gran % % Neutrophils % % Lymphocytes % % Monocytes % % Eosinophils % % Basophils % % Nucleated RBC % (0.0-0.3) % Absolute Neutrophils (1.2-6.7) 10^3/uL Absolute Lymphocytes (1.2-3.4) 10^3/uL Absolute Monocytes (0.1-0.8) 10^3/uL Absolute Eosinophils (0.0-0.7) 10^3/uL Absolute Basophils (0.0-0.2) 10^3/uL VBG pH (7.31-7.41) VBG pCO2 (41-51) mmHg VBG pO2 mmHg VBG HCO3 (23-28) mmol/L VBG Total CO2 (24-29) mmol/L VBG O2 Saturation % VBG Base Excess (-2-3) mmol/L Sodium Pending Cancelled (136-145) mmol/L Potassium Pending Cancelled (3.5-5.1) mmol/L Chloride Cancelled (98-107) mmol/L Carbon Dioxide (21.0-32.0) mmol/L Anion Gap (3-11) mmol/L BUN (7-18) mg/dL Creatinine (0.55-1.02) mg/dL Est GFR (CKD-EPI 2020) (mL/min/1.73m2) Glucose (74-106) mg/dL Calcium (8.5-10.1) mg/dL Phosphorus (2.6-4.7) mg/dL Magnesium (1.8-2.4) mg/dL Troponin I (<or=51) ng/L Urine Color (Yellow) Urine Clarity (Clear) Urine pH (5-8) Ur Specific [place] (1.005-1.025) Urine Protein (Neg-Trace) mg/dL Urine Ketones (Negative) mg/dL Urine Blood (Negative) Urine Nitrite (Negative) Urine Bilirubin (Negative) Urine Urobilinogen (Up to 0.2) mg/dL Ur Leukocyte Esterase (Negative) Urine Glucose (Negative) mg/dL 07/14/24 07/14/24 07/14/24 Range/Units 21:15 20:15 20:15 WBC (4.4-10.8) 10^3/uL RBC (3.93-5.22) 10^6/uL Hgb (11.2-15.7) g/dL Hct (36.0-46.0) % MCV (80-95) fL MCH (27.0-33.0) pg MCHC (32.0-36.0) % RDW (11.7-14.6) % Plt Count (130-400) 10^3/uL MPV (8.0-11.0) fL Immature Gran % % Neutrophils % % Lymphocytes % % Monocytes % % Eosinophils % % Basophils % % Nucleated RBC % (0.0-0.3) % Absolute Neutrophils (1.2-6.7) 10^3/uL Absolute Lymphocytes (1.2-3.4) 10^3/uL Absolute Monocytes (0.1-0.8) 10^3/uL Absolute Eosinophils (0.0-0.7) 10^3/uL Absolute Basophils (0.0-0.2) 10^3/uL VBG pH (7.31-7.41) VBG pCO2 (41-51) mmHg VBG pO2 mmHg VBG HCO3 (23-28) mmol/L VBG Total CO2 (24-29) mmol/L VBG O2 Saturation % VBG Base Excess (-2-3) mmol/L Sodium Cancelled (136-145) mmol/L Potassium Cancelled (3.5-5.1) mmol/L Chloride Cancelled (98-107) mmol/L Carbon Dioxide Cancelled (21.0-32.0) mmol/L Anion Gap Cancelled (3-11) mmol/L BUN Cancelled (7-18) mg/dL Creatinine Cancelled (0.55-1.02) mg/dL Est GFR (CKD-EPI 2020) Cancelled (mL/min/1.73m2) Glucose Cancelled Pending (74-106) mg/dL Calcium Cancelled Pending Cancelled (8.5-10.1) mg/dL Phosphorus (2.6-4.7) mg/dL Magnesium (1.8-2.4) mg/dL Troponin I (<or=51) ng/L Urine Color (Yellow) Urine Clarity (Clear) Urine pH (5-8) Ur Specific [place] (1.005-1.025) Urine Protein (Neg-Trace) mg/dL Urine Ketones (Negative) mg/dL Urine Blood (Negative) Urine Nitrite (Negative) Urine Bilirubin (Negative) Urine Urobilinogen (Up to 0.2) mg/dL Ur Leukocyte Esterase (Negative) Urine Glucose (Negative) mg/dL 07/14/24 07/14/24 07/14/24 Range/Units 20:15 20:15 20:15 WBC (4.4-10.8) 10^3/uL RBC (3.93-5.22) 10^6/uL Hgb (11.2-15.7) g/dL Hct (36.0-46.0) % MCV (80-95) fL MCH (27.0-33.0) pg MCHC (32.0-36.0) % RDW (11.7-14.6) % Plt Count (130-400) 10^3/uL MPV (8.0-11.0) fL Immature Gran % % Neutrophils % % Lymphocytes % % Monocytes % % Eosinophils % % Basophils % % Nucleated RBC % (0.0-0.3) % Absolute Neutrophils (1.2-6.7) 10^3/uL Absolute Lymphocytes (1.2-3.4) 10^3/uL Absolute Monocytes (0.1-0.8) 10^3/uL Absolute Eosinophils (0.0-0.7) 10^3/uL Absolute Basophils (0.0-0.2) 10^3/uL VBG pH (7.31-7.41) VBG pCO2 (41-51) mmHg VBG pO2 mmHg VBG HCO3 (23-28) mmol/L VBG Total CO2 (24-29) mmol/L VBG O2 Saturation % VBG Base Excess (-2-3) mmol/L Sodium (136-145) mmol/L Potassium (3.5-5.1) mmol/L Chloride (98-107) mmol/L Carbon Dioxide (21.0-32.0) mmol/L Anion Gap (3-11) mmol/L BUN Pending (7-18) mg/dL Creatinine Pending Cancelled (0.55-1.02) mg/dL Est GFR (CKD-EPI 2020) Pending Cancelled (mL/min/1.73m2) Glucose Cancelled (74-106) mg/dL Calcium (8.5-10.1) mg/dL Phosphorus (2.6-4.7) mg/dL Magnesium (1.8-2.4) mg/dL Troponin I (<or=51) ng/L Urine Color (Yellow) Urine Clarity (Clear) Urine pH (5-8) Ur Specific [place] (1.005-1.025) Urine Protein (Neg-Trace) mg/dL Urine Ketones (Negative) mg/dL Urine Blood (Negative) Urine Nitrite (Negative) Urine Bilirubin (Negative) Urine Urobilinogen (Up to 0.2) mg/dL Ur Leukocyte Esterase (Negative) Urine Glucose (Negative) mg/dL 07/14/24 07/14/24 07/14/24 Range/Units 20:15 20:15 20:15 WBC (4.4-10.8) 10^3/uL RBC (3.93-5.22) 10^6/uL Hgb (11.2-15.7) g/dL Hct (36.0-46.0) % MCV (80-95) fL MCH (27.0-33.0) pg MCHC (32.0-36.0) % RDW (11.7-14.6) % Plt Count (130-400) 10^3/uL MPV (8.0-11.0) fL Immature Gran % % Neutrophils % % Lymphocytes % % Monocytes % % Eosinophils % % Basophils % % Nucleated RBC % (0.0-0.3) % Absolute Neutrophils (1.2-6.7) 10^3/uL Absolute Lymphocytes (1.2-3.4) 10^3/uL Absolute Monocytes (0.1-0.8) 10^3/uL Absolute Eosinophils (0.0-0.7) 10^3/uL Absolute Basophils (0.0-0.2) 10^3/uL VBG pH (7.31-7.41) VBG pCO2 (41-51) mmHg VBG pO2 mmHg VBG HCO3 (23-28) mmol/L VBG Total CO2 (24-29) mmol/L VBG O2 Saturation % VBG Base Excess (-2-3) mmol/L Sodium (136-145) mmol/L Potassium (3.5-5.1) mmol/L Chloride Pending (98-107) mmol/L Carbon Dioxide Pending Cancelled (21.0-32.0) mmol/L Anion Gap Pending Cancelled (3-11) mmol/L BUN Cancelled (7-18) mg/dL Creatinine (0.55-1.02) mg/dL Est GFR (CKD-EPI 2020) (mL/min/1.73m2) Glucose (74-106) mg/dL Calcium (8.5-10.1) mg/dL Phosphorus (2.6-4.7) mg/dL Magnesium (1.8-2.4) mg/dL Troponin I (<or=51) ng/L Urine Color (Yellow) Urine Clarity (Clear) Urine pH (5-8) Ur Specific [place] (1.005-1.025) Urine Protein (Neg-Trace) mg/dL Urine Ketones (Negative) mg/dL Urine Blood (Negative) Urine Nitrite (Negative) Urine Bilirubin (Negative) Urine Urobilinogen (Up to 0.2) mg/dL Ur Leukocyte Esterase (Negative) Urine Glucose (Negative) mg/dL 07/14/24 07/14/24 07/14/24 Range/Units 20:15 20:15 20:15 WBC (4.4-10.8) 10^3/uL RBC (3.93-5.22) 10^6/uL Hgb (11.2-15.7) g/dL Hct (36.0-46.0) % MCV (80-95) fL MCH (27.0-33.0) pg MCHC (32.0-36.0) % RDW (11.7-14.6) % Plt Count (130-400) 10^3/uL MPV (8.0-11.0) fL Immature Gran % % Neutrophils % % Lymphocytes % % Monocytes % % Eosinophils % % Basophils % % Nucleated RBC % (0.0-0.3) % Absolute Neutrophils (1.2-6.7) 10^3/uL Absolute Lymphocytes (1.2-3.4) 10^3/uL Absolute Monocytes (0.1-0.8) 10^3/uL Absolute Eosinophils (0.0-0.7) 10^3/uL Absolute Basophils (0.0-0.2) 10^3/uL VBG pH (7.31-7.41) VBG pCO2 (41-51) mmHg VBG pO2 mmHg VBG HCO3 (23-28) mmol/L VBG Total CO2 (24-29) mmol/L VBG O2 Saturation % VBG Base Excess (-2-3) mmol/L Sodium Pending Cancelled (136-145) mmol/L Potassium Pending Cancelled (3.5-5.1) mmol/L Chloride Cancelled (98-107) mmol/L Carbon Dioxide (21.0-32.0) mmol/L Anion Gap (3-11) mmol/L BUN (7-18) mg/dL Creatinine (0.55-1.02) mg/dL Est GFR (CKD-EPI 2020) (mL/min/1.73m2) Glucose (74-106) mg/dL Calcium (8.5-10.1) mg/dL Phosphorus (2.6-4.7) mg/dL Magnesium (1.8-2.4) mg/dL Troponin I (<or=51) ng/L Urine Color (Yellow) Urine Clarity (Clear) Urine pH (5-8) Ur Specific [place] (1.005-1.025) Urine Protein (Neg-Trace) mg/dL Urine Ketones (Negative) mg/dL Urine Blood (Negative) Urine Nitrite (Negative) Urine Bilirubin (Negative) Urine Urobilinogen (Up to 0.2) mg/dL Ur Leukocyte Esterase (Negative) Urine Glucose (Negative) mg/dL 07/14/24 07/14/24 07/14/24 Range/Units 19:15 18:15 18:15 WBC (4.4-10.8) 10^3/uL RBC (3.93-5.22) 10^6/uL Hgb (11.2-15.7) g/dL Hct (36.0-46.0) % MCV (80-95) fL MCH (27.0-33.0) pg MCHC (32.0-36.0) % RDW (11.7-14.6) % Plt Count (130-400) 10^3/uL MPV (8.0-11.0) fL Immature Gran % % Neutrophils % % Lymphocytes % % Monocytes % % Eosinophils % % Basophils % % Nucleated RBC % (0.0-0.3) % Absolute Neutrophils (1.2-6.7) 10^3/uL Absolute Lymphocytes (1.2-3.4) 10^3/uL Absolute Monocytes (0.1-0.8) 10^3/uL Absolute Eosinophils (0.0-0.7) 10^3/uL Absolute Basophils (0.0-0.2) 10^3/uL VBG pH (7.31-7.41) VBG pCO2 (41-51) mmHg VBG pO2 mmHg VBG HCO3 (23-28) mmol/L VBG Total CO2 (24-29) mmol/L VBG O2 Saturation % VBG Base Excess (-2-3) mmol/L Sodium Cancelled (136-145) mmol/L Potassium Cancelled (3.5-5.1) mmol/L Chloride Cancelled (98-107) mmol/L Carbon Dioxide Cancelled (21.0-32.0) mmol/L Anion Gap Cancelled (3-11) mmol/L BUN Cancelled (7-18) mg/dL Creatinine Cancelled (0.55-1.02) mg/dL Est GFR (CKD-EPI 2020) Cancelled (mL/min/1.73m2) Glucose Cancelled (74-106) mg/dL Calcium Cancelled Pending Cancelled (8.5-10.1) mg/dL Phosphorus (2.6-4.7) mg/dL Magnesium (1.8-2.4) mg/dL Troponin I (<or=51) ng/L Urine Color (Yellow) Urine Clarity (Clear) Urine pH (5-8) Ur Specific [place] (1.005-1.025) Urine Protein (Neg-Trace) mg/dL Urine Ketones (Negative) mg/dL Urine Blood (Negative) Urine Nitrite (Negative) Urine Bilirubin (Negative) Urine Urobilinogen (Up to 0.2) mg/dL Ur Leukocyte Esterase (Negative) Urine Glucose (Negative) mg/dL 07/14/24 07/14/24 07/14/24 Range/Units 18:15 18:15 18:15 WBC (4.4-10.8) 10^3/uL RBC (3.93-5.22) 10^6/uL Hgb (11.2-15.7) g/dL Hct (36.0-46.0) % MCV (80-95) fL MCH (27.0-33.0) pg MCHC (32.0-36.0) % RDW (11.7-14.6) % Plt Count (130-400) 10^3/uL MPV (8.0-11.0) fL Immature Gran % % Neutrophils % % Lymphocytes % % Monocytes % % Eosinophils % % Basophils % % Nucleated RBC % (0.0-0.3) % Absolute Neutrophils (1.2-6.7) 10^3/uL Absolute Lymphocytes (1.2-3.4) 10^3/uL Absolute Monocytes (0.1-0.8) 10^3/uL Absolute Eosinophils (0.0-0.7) 10^3/uL Absolute Basophils (0.0-0.2) 10^3/uL VBG pH (7.31-7.41) VBG pCO2 (41-51) mmHg VBG pO2 mmHg VBG HCO3 (23-28) mmol/L VBG Total CO2 (24-29) mmol/L VBG O2 Saturation % VBG Base Excess (-2-3) mmol/L Sodium (136-145) mmol/L Potassium (3.5-5.1) mmol/L Chloride (98-107) mmol/L Carbon Dioxide (21.0-32.0) mmol/L Anion Gap (3-11) mmol/L BUN (7-18) mg/dL Creatinine (0.55-1.02) mg/dL Est GFR (CKD-EPI 2020) Pending (mL/min/1.73m2) Glucose Pending Cancelled Cancelled (74-106) mg/dL Calcium Cancelled (8.5-10.1) mg/dL Phosphorus (2.6-4.7) mg/dL Magnesium (1.8-2.4) mg/dL Troponin I (<or=51) ng/L Urine Color (Yellow) Urine Clarity (Clear) Urine pH (5-8) Ur Specific [place] (1.005-1.025) Urine Protein (Neg-Trace) mg/dL Urine Ketones (Negative) mg/dL Urine Blood (Negative) Urine Nitrite (Negative) Urine Bilirubin (Negative) Urine Urobilinogen (Up to 0.2) mg/dL Ur Leukocyte Esterase (Negative) Urine Glucose (Negative) mg/dL 07/14/24 07/14/24 07/14/24 Range/Units 18:15 18:15 18:15 WBC (4.4-10.8) 10^3/uL RBC (3.93-5.22) 10^6/uL Hgb (11.2-15.7) g/dL Hct (36.0-46.0) % MCV (80-95) fL MCH (27.0-33.0) pg MCHC (32.0-36.0) % RDW (11.7-14.6) % Plt Count (130-400) 10^3/uL MPV (8.0-11.0) fL Immature Gran % % Neutrophils % % Lymphocytes % % Monocytes % % Eosinophils % % Basophils % % Nucleated RBC % (0.0-0.3) % Absolute Neutrophils (1.2-6.7) 10^3/uL Absolute Lymphocytes (1.2-3.4) 10^3/uL Absolute Monocytes (0.1-0.8) 10^3/uL Absolute Eosinophils (0.0-0.7) 10^3/uL Absolute Basophils (0.0-0.2) 10^3/uL VBG pH (7.31-7.41) VBG pCO2 (41-51) mmHg VBG pO2 mmHg VBG HCO3 (23-28) mmol/L VBG Total CO2 (24-29) mmol/L VBG O2 Saturation % VBG Base Excess (-2-3) mmol/L Sodium (136-145) mmol/L Potassium (3.5-5.1) mmol/L Chloride (98-107) mmol/L Carbon Dioxide (21.0-32.0) mmol/L Anion Gap (3-11) mmol/L BUN (7-18) mg/dL Creatinine Pending Cancelled (0.55-1.02) mg/dL Est GFR (CKD-EPI 2020) Cancelled Cancelled (mL/min/1.73m2) Glucose (74-106) mg/dL Calcium (8.5-10.1) mg/dL Phosphorus (2.6-4.7) mg/dL Magnesium (1.8-2.4) mg/dL Troponin I (<or=51) ng/L Urine Color (Yellow) Urine Clarity (Clear) Urine pH (5-8) Ur Specific [place] (1.005-1.025) Urine Protein (Neg-Trace) mg/dL Urine Ketones (Negative) mg/dL Urine Blood (Negative) Urine Nitrite (Negative) Urine Bilirubin (Negative) Urine Urobilinogen (Up to 0.2) mg/dL Ur Leukocyte Esterase (Negative) Urine Glucose (Negative) mg/dL 07/14/24 07/14/24 07/14/24 Range/Units 18:15 18:15 18:15 WBC (4.4-10.8) 10^3/uL RBC (3.93-5.22) 10^6/uL Hgb (11.2-15.7) g/dL Hct (36.0-46.0) % MCV (80-95) fL MCH (27.0-33.0) pg MCHC (32.0-36.0) % RDW (11.7-14.6) % Plt Count (130-400) 10^3/uL MPV (8.0-11.0) fL Immature Gran % % Neutrophils % % Lymphocytes % % Monocytes % % Eosinophils % % Basophils % % Nucleated RBC % (0.0-0.3) % Absolute Neutrophils (1.2-6.7) 10^3/uL Absolute Lymphocytes (1.2-3.4) 10^3/uL Absolute Monocytes (0.1-0.8) 10^3/uL Absolute Eosinophils (0.0-0.7) 10^3/uL Absolute Basophils (0.0-0.2) 10^3/uL VBG pH (7.31-7.41) VBG pCO2 (41-51) mmHg VBG pO2 mmHg VBG HCO3 (23-28) mmol/L VBG Total CO2 (24-29) mmol/L VBG O2 Saturation % VBG Base Excess (-2-3) mmol/L Sodium (136-145) mmol/L Potassium (3.5-5.1) mmol/L Chloride (98-107) mmol/L Carbon Dioxide (21.0-32.0) mmol/L Anion Gap Pending (3-11) mmol/L BUN Pending Cancelled Cancelled (7-18) mg/dL Creatinine Cancelled (0.55-1.02) mg/dL Est GFR (CKD-EPI 2020) (mL/min/1.73m2) Glucose (74-106) mg/dL Calcium (8.5-10.1) mg/dL Phosphorus (2.6-4.7) mg/dL Magnesium (1.8-2.4) mg/dL Troponin I (<or=51) ng/L Urine Color (Yellow) Urine Clarity (Clear) Urine pH (5-8) Ur Specific [place] (1.005-1.025) Urine Protein (Neg-Trace) mg/dL Urine Ketones (Negative) mg/dL Urine Blood (Negative) Urine Nitrite (Negative) Urine Bilirubin (Negative) Urine Urobilinogen (Up to 0.2) mg/dL Ur Leukocyte Esterase (Negative) Urine Glucose (Negative) mg/dL 07/14/24 07/14/24 07/14/24 Range/Units 18:15 18:15 18:15 WBC (4.4-10.8) 10^3/uL RBC (3.93-5.22) 10^6/uL Hgb (11.2-15.7) g/dL Hct (36.0-46.0) % MCV (80-95) fL MCH (27.0-33.0) pg MCHC (32.0-36.0) % RDW (11.7-14.6) % Plt Count (130-400) 10^3/uL MPV (8.0-11.0) fL Immature Gran % % Neutrophils % % Lymphocytes % % Monocytes % % Eosinophils % % Basophils % % Nucleated RBC % (0.0-0.3) % Absolute Neutrophils (1.2-6.7) 10^3/uL Absolute Lymphocytes (1.2-3.4) 10^3/uL Absolute Monocytes (0.1-0.8) 10^3/uL Absolute Eosinophils (0.0-0.7) 10^3/uL Absolute Basophils (0.0-0.2) 10^3/uL VBG pH (7.31-7.41) VBG pCO2 (41-51) mmHg VBG pO2 mmHg VBG HCO3 (23-28) mmol/L VBG Total CO2 (24-29) mmol/L VBG O2 Saturation % VBG Base Excess (-2-3) mmol/L Sodium (136-145) mmol/L Potassium (3.5-5.1) mmol/L Chloride (98-107) mmol/L Carbon Dioxide Pending Cancelled (21.0-32.0) mmol/L Anion Gap Cancelled Cancelled (3-11) mmol/L BUN (7-18) mg/dL Creatinine (0.55-1.02) mg/dL Est GFR (CKD-EPI 2020) (mL/min/1.73m2) Glucose (74-106) mg/dL Calcium (8.5-10.1) mg/dL Phosphorus (2.6-4.7) mg/dL Magnesium (1.8-2.4) mg/dL Troponin I (<or=51) ng/L Urine Color (Yellow) Urine Clarity (Clear) Urine pH (5-8) Ur Specific [place] (1.005-1.025) Urine Protein (Neg-Trace) mg/dL Urine Ketones (Negative) mg/dL Urine Blood (Negative) Urine Nitrite (Negative) Urine Bilirubin (Negative) Urine Urobilinogen (Up to 0.2) mg/dL Ur Leukocyte Esterase (Negative) Urine Glucose (Negative) mg/dL 07/14/24 07/14/24 07/14/24 Range/Units 18:15 18:15 18:15 WBC (4.4-10.8) 10^3/uL RBC (3.93-5.22) 10^6/uL Hgb (11.2-15.7) g/dL Hct (36.0-46.0) % MCV (80-95) fL MCH (27.0-33.0) pg MCHC (32.0-36.0) % RDW (11.7-14.6) % Plt Count (130-400) 10^3/uL MPV (8.0-11.0) fL Immature Gran % % Neutrophils % % Lymphocytes % % Monocytes % % Eosinophils % % Basophils % % Nucleated RBC % (0.0-0.3) % Absolute Neutrophils (1.2-6.7) 10^3/uL Absolute Lymphocytes (1.2-3.4) 10^3/uL Absolute Monocytes (0.1-0.8) 10^3/uL Absolute Eosinophils (0.0-0.7) 10^3/uL Absolute Basophils (0.0-0.2) 10^3/uL VBG pH (7.31-7.41) VBG pCO2 (41-51) mmHg VBG pO2 mmHg VBG HCO3 (23-28) mmol/L VBG Total CO2 (24-29) mmol/L VBG O2 Saturation % VBG Base Excess (-2-3) mmol/L Sodium (136-145) mmol/L Potassium Pending (3.5-5.1) mmol/L Chloride Pending Cancelled Cancelled (98-107) mmol/L Carbon Dioxide Cancelled (21.0-32.0) mmol/L Anion Gap (3-11) mmol/L BUN (7-18) mg/dL Creatinine (0.55-1.02) mg/dL Est GFR (CKD-EPI 2020) (mL/min/1.73m2) Glucose (74-106) mg/dL Calcium (8.5-10.1) mg/dL Phosphorus (2.6-4.7) mg/dL Magnesium (1.8-2.4) mg/dL Troponin I (<or=51) ng/L Urine Color (Yellow) Urine Clarity (Clear) Urine pH (5-8) Ur Specific [place] (1.005-1.025) Urine Protein (Neg-Trace) mg/dL Urine Ketones (Negative) mg/dL Urine Blood (Negative) Urine Nitrite (Negative) Urine Bilirubin (Negative) Urine Urobilinogen (Up to 0.2) mg/dL Ur Leukocyte Esterase (Negative) Urine Glucose (Negative) mg/dL 07/14/24 07/14/24 07/14/24 Range/Units 18:15 18:15 18:15 WBC (4.4-10.8) 10^3/uL RBC (3.93-5.22) 10^6/uL Hgb (11.2-15.7) g/dL Hct (36.0-46.0) % MCV (80-95) fL MCH (27.0-33.0) pg MCHC (32.0-36.0) % RDW (11.7-14.6) % Plt Count (130-400) 10^3/uL MPV (8.0-11.0) fL Immature Gran % % Neutrophils % % Lymphocytes % % Monocytes % % Eosinophils % % Basophils % % Nucleated RBC % (0.0-0.3) % Absolute Neutrophils (1.2-6.7) 10^3/uL Absolute Lymphocytes (1.2-3.4) 10^3/uL Absolute Monocytes (0.1-0.8) 10^3/uL Absolute Eosinophils (0.0-0.7) 10^3/uL Absolute Basophils (0.0-0.2) 10^3/uL VBG pH (7.31-7.41) VBG pCO2 (41-51) mmHg VBG pO2 mmHg VBG HCO3 (23-28) mmol/L VBG Total CO2 (24-29) mmol/L VBG O2 Saturation % VBG Base Excess (-2-3) mmol/L Sodium Pending Cancelled (136-145) mmol/L Potassium Cancelled Cancelled (3.5-5.1) mmol/L Chloride (98-107) mmol/L Carbon Dioxide (21.0-32.0) mmol/L Anion Gap (3-11) mmol/L BUN (7-18) mg/dL Creatinine (0.55-1.02) mg/dL Est GFR (CKD-EPI 2020) (mL/min/1.73m2) Glucose (74-106) mg/dL Calcium (8.5-10.1) mg/dL Phosphorus (2.6-4.7) mg/dL Magnesium (1.8-2.4) mg/dL Troponin I (<or=51) ng/L Urine Color (Yellow) Urine Clarity (Clear) Urine pH (5-8) Ur Specific [place] (1.005-1.025) Urine Protein (Neg-Trace) mg/dL Urine Ketones (Negative) mg/dL Urine Blood (Negative) Urine Nitrite (Negative) Urine Bilirubin (Negative) Urine Urobilinogen (Up to 0.2) mg/dL Ur Leukocyte Esterase (Negative) Urine Glucose (Negative) mg/dL 07/14/24 07/14/24 07/14/24 Range/Units 18:15 17:15 16:15 WBC (4.4-10.8) 10^3/uL RBC (3.93-5.22) 10^6/uL Hgb (11.2-15.7) g/dL Hct (36.0-46.0) % MCV (80-95) fL MCH (27.0-33.0) pg MCHC (32.0-36.0) % RDW (11.7-14.6) % Plt Count (130-400) 10^3/uL MPV (8.0-11.0) fL Immature Gran % % Neutrophils % % Lymphocytes % % Monocytes % % Eosinophils % % Basophils % % Nucleated RBC % (0.0-0.3) % Absolute Neutrophils (1.2-6.7) 10^3/uL Absolute Lymphocytes (1.2-3.4) 10^3/uL Absolute Monocytes (0.1-0.8) 10^3/uL Absolute Eosinophils (0.0-0.7) 10^3/uL Absolute Basophils (0.0-0.2) 10^3/uL VBG pH (7.31-7.41) VBG pCO2 (41-51) mmHg VBG pO2 mmHg VBG HCO3 (23-28) mmol/L VBG Total CO2 (24-29) mmol/L VBG O2 Saturation % VBG Base Excess (-2-3) mmol/L Sodium Cancelled Cancelled (136-145) mmol/L Potassium Cancelled (3.5-5.1) mmol/L Chloride Cancelled (98-107) mmol/L Carbon Dioxide Cancelled (21.0-32.0) mmol/L Anion Gap Cancelled (3-11) mmol/L BUN Cancelled (7-18) mg/dL Creatinine Cancelled (0.55-1.02) mg/dL Est GFR (CKD-EPI 2020) Cancelled (mL/min/1.73m2) Glucose Cancelled (74-106) mg/dL Calcium Cancelled Pending (8.5-10.1) mg/dL Phosphorus (2.6-4.7) mg/dL Magnesium (1.8-2.4) mg/dL Troponin I (<or=51) ng/L Urine Color (Yellow) Urine Clarity (Clear) Urine pH (5-8) Ur Specific [place] (1.005-1.025) Urine Protein (Neg-Trace) mg/dL Urine Ketones (Negative) mg/dL Urine Blood (Negative) Urine Nitrite (Negative) Urine Bilirubin (Negative) Urine Urobilinogen (Up to 0.2) mg/dL Ur Leukocyte Esterase (Negative) Urine Glucose (Negative) mg/dL 11/18/24 11/18/24 11/18/24 Range/Units 16:15 16:15 16:15 WBC (4.4-10.8) 10^3/uL RBC (3.93-5.22) 10^6/uL Hgb (11.2-15.7) g/dL Hct (36.0-46.0) % MCV (80-95) fL MCH (27.0-33.0) pg MCHC (32.0-36.0) % RDW (11.7-14.6) % Plt Count (130-400) 10^3/uL MPV (8.0-11.0) fL Immature Gran % % Neutrophils % % Lymphocytes % % Monocytes % % Eosinophils % % Basophils % % Nucleated RBC % (0.0-0.3) % Absolute Neutrophils (1.2-6.7) 10^3/uL Absolute Lymphocytes (1.2-3.4) 10^3/uL Absolute Monocytes (0.1-0.8) 10^3/uL Absolute Eosinophils (0.0-0.7) 10^3/uL Absolute Basophils (0.0-0.2) 10^3/uL VBG pH (7.31-7.41) VBG pCO2 (41-51) mmHg VBG pO2 mmHg VBG HCO3 (23-28) mmol/L VBG Total CO2 (24-29) mmol/L VBG O2 Saturation % VBG Base Excess (-2-3) mmol/L Sodium (136-145) mmol/L Potassium (3.5-5.1) mmol/L Chloride (98-107) mmol/L Carbon Dioxide (21.0-32.0) mmol/L Anion Gap (3-11) mmol/L BUN (7-18) mg/dL Creatinine (0.55-1.02) mg/dL Est GFR (CKD-EPI 2020) (mL/min/1.73m2) Glucose Pending Cancelled (74-106) mg/dL Calcium Cancelled Cancelled (8.5-10.1) mg/dL Phosphorus (2.6-4.7) mg/dL Magnesium (1.8-2.4) mg/dL Troponin I (<or=51) ng/L Urine Color (Yellow) Urine Clarity (Clear) Urine pH (5-8) Ur Specific [place] (1.005-1.025) Urine Protein (Neg-Trace) mg/dL Urine Ketones (Negative) mg/dL Urine Blood (Negative) Urine Nitrite (Negative) Urine Bilirubin (Negative) Urine Urobilinogen (Up to 0.2) mg/dL Ur Leukocyte Esterase (Negative) Urine Glucose (Negative) mg/dL 07/14/24 07/14/24 07/14/24 Range/Units 16:15 16:15 16:15 WBC (4.4-10.8) 10^3/uL RBC (3.93-5.22) 10^6/uL Hgb (11.2-15.7) g/dL Hct (36.0-46.0) % MCV (80-95) fL MCH (27.0-33.0) pg MCHC (32.0-36.0) % RDW (11.7-14.6) % Plt Count (130-400) 10^3/uL MPV (8.0-11.0) fL Immature Gran % % Neutrophils % % Lymphocytes % % Monocytes % % Eosinophils % % Basophils % % Nucleated RBC % (0.0-0.3) % Absolute Neutrophils (1.2-6.7) 10^3/uL Absolute Lymphocytes (1.2-3.4) 10^3/uL Absolute Monocytes (0.1-0.8) 10^3/uL Absolute Eosinophils (0.0-0.7) 10^3/uL Absolute Basophils (0.0-0.2) 10^3/uL VBG pH (7.31-7.41) VBG pCO2 (41-51) mmHg VBG pO2 mmHg VBG HCO3 (23-28) mmol/L VBG Total CO2 (24-29) mmol/L VBG O2 Saturation % VBG Base Excess (-2-3) mmol/L Sodium (136-145) mmol/L Potassium (3.5-5.1) mmol/L Chloride (98-107) mmol/L Carbon Dioxide (21.0-32.0) mmol/L Anion Gap (3-11) mmol/L BUN (7-18) mg/dL Creatinine Pending (0.55-1.02) mg/dL Est GFR (CKD-EPI 2020) Pending Cancelled Cancelled (mL/min/1.73m2) Glucose Cancelled (74-106) mg/dL Calcium (8.5-10.1) mg/dL Phosphorus (2.6-4.7) mg/dL Magnesium (1.8-2.4) mg/dL Troponin I (<or=51) ng/L Urine Color (Yellow) Urine Clarity (Clear) Urine pH (5-8) Ur Specific [place] (1.005-1.025) Urine Protein (Neg-Trace) mg/dL Urine Ketones (Negative) mg/dL Urine Blood (Negative) Urine Nitrite (Negative) Urine Bilirubin (Negative) Urine Urobilinogen (Up to 0.2) mg/dL Ur Leukocyte Esterase (Negative) Urine Glucose (Negative) mg/dL 07/14/24 07/14/24 07/14/24 Range/Units 16:15 16:15 16:15 WBC (4.4-10.8) 10^3/uL RBC (3.93-5.22) 10^6/uL Hgb (11.2-15.7) g/dL Hct (36.0-46.0) % MCV (80-95) fL MCH (27.0-33.0) pg MCHC (32.0-36.0) % RDW (11.7-14.6) % Plt Count (130-400) 10^3/uL MPV (8.0-11.0) fL Immature Gran % % Neutrophils % % Lymphocytes % % Monocytes % % Eosinophils % % Basophils % % Nucleated RBC % (0.0-0.3) % Absolute Neutrophils (1.2-6.7) 10^3/uL Absolute Lymphocytes (1.2-3.4) 10^3/uL Absolute Monocytes (0.1-0.8) 10^3/uL Absolute Eosinophils (0.0-0.7) 10^3/uL Absolute Basophils (0.0-0.2) 10^3/uL VBG pH (7.31-7.41) VBG pCO2 (41-51) mmHg VBG pO2 mmHg VBG HCO3 (23-28) mmol/L VBG Total CO2 (24-29) mmol/L VBG O2 Saturation % VBG Base Excess (-2-3) mmol/L Sodium (136-145) mmol/L Potassium (3.5-5.1) mmol/L Chloride (98-107) mmol/L Carbon Dioxide (21.0-32.0) mmol/L Anion Gap (3-11) mmol/L BUN Pending Cancelled (7-18) mg/dL Creatinine Cancelled Cancelled (0.55-1.02) mg/dL Est GFR (CKD-EPI 2020) (mL/min/1.73m2) Glucose (74-106) mg/dL Calcium (8.5-10.1) mg/dL Phosphorus (2.6-4.7) mg/dL Magnesium (1.8-2.4) mg/dL Troponin I (<or=51) ng/L Urine Color (Yellow) Urine Clarity (Clear) Urine pH (5-8) Ur Specific [place] (1.005-1.025) Urine Protein (Neg-Trace) mg/dL Urine Ketones (Negative) mg/dL Urine Blood (Negative) Urine Nitrite (Negative) Urine Bilirubin (Negative) Urine Urobilinogen (Up to 0.2) mg/dL Ur Leukocyte Esterase (Negative) Urine Glucose (Negative) mg/dL 07/14/24 07/14/24 07/14/24 Range/Units 16:15 16:15 16:15 WBC (4.4-10.8) 10^3/uL RBC (3.93-5.22) 10^6/uL Hgb (11.2-15.7) g/dL Hct (36.0-46.0) % MCV (80-95) fL MCH (27.0-33.0) pg MCHC (32.0-36.0) % RDW (11.7-14.6) % Plt Count (130-400) 10^3/uL MPV (8.0-11.0) fL Immature Gran % % Neutrophils % % Lymphocytes % % Monocytes % % Eosinophils % % Basophils % % Nucleated RBC % (0.0-0.3) % Absolute Neutrophils (1.2-6.7) 10^3/uL Absolute Lymphocytes (1.2-3.4) 10^3/uL Absolute Monocytes (0.1-0.8) 10^3/uL Absolute Eosinophils (0.0-0.7) 10^3/uL Absolute Basophils (0.0-0.2) 10^3/uL VBG pH (7.31-7.41) VBG pCO2 (41-51) mmHg VBG pO2 mmHg VBG HCO3 (23-28) mmol/L VBG Total CO2 (24-29) mmol/L VBG O2 Saturation % VBG Base Excess (-2-3) mmol/L Sodium (136-145) mmol/L Potassium (3.5-5.1) mmol/L Chloride (98-107) mmol/L Carbon Dioxide Pending (21.0-32.0) mmol/L Anion Gap Pending Cancelled Cancelled (3-11) mmol/L BUN Cancelled (7-18) mg/dL Creatinine (0.55-1.02) mg/dL Est GFR (CKD-EPI 2020) (mL/min/1.73m2) Glucose (74-106) mg/dL Calcium (8.5-10.1) mg/dL Phosphorus (2.6-4.7) mg/dL Magnesium (1.8-2.4) mg/dL Troponin I (<or=51) ng/L Urine Color (Yellow) Urine Clarity (Clear) Urine pH (5-8) Ur Specific [place] (1.005-1.025) Urine Protein (Neg-Trace) mg/dL Urine Ketones (Negative) mg/dL Urine Blood (Negative) Urine Nitrite (Negative) Urine Bilirubin (Negative) Urine Urobilinogen (Up to 0.2) mg/dL Ur Leukocyte Esterase (Negative) Urine Glucose (Negative) mg/dL 07/14/24 07/14/24 07/14/24 Range/Units 16:15 16:15 16:15 WBC (4.4-10.8) 10^3/uL RBC (3.93-5.22) 10^6/uL Hgb (11.2-15.7) g/dL Hct (36.0-46.0) % MCV (80-95) fL MCH (27.0-33.0) pg MCHC (32.0-36.0) % RDW (11.7-14.6) % Plt Count (130-400) 10^3/uL MPV (8.0-11.0) fL Immature Gran % % Neutrophils % % Lymphocytes % % Monocytes % % Eosinophils % % Basophils % % Nucleated RBC % (0.0-0.3) % Absolute Neutrophils (1.2-6.7) 10^3/uL Absolute Lymphocytes (1.2-3.4) 10^3/uL Absolute Monocytes (0.1-0.8) 10^3/uL Absolute Eosinophils (0.0-0.7) 10^3/uL Absolute Basophils (0.0-0.2) 10^3/uL VBG pH (7.31-7.41) VBG pCO2 (41-51) mmHg VBG pO2 mmHg VBG HCO3 (23-28) mmol/L VBG Total CO2 (24-29) mmol/L VBG O2 Saturation % VBG Base Excess (-2-3) mmol/L Sodium (136-145) mmol/L Potassium (3.5-5.1) mmol/L Chloride Pending Cancelled (98-107) mmol/L Carbon Dioxide Cancelled Cancelled (21.0-32.0) mmol/L Anion Gap (3-11) mmol/L BUN (7-18) mg/dL Creatinine (0.55-1.02) mg/dL Est GFR (CKD-EPI 2020) (mL/min/1.73m2) Glucose (74-106) mg/dL Calcium (8.5-10.1) mg/dL Phosphorus (2.6-4.7) mg/dL Magnesium (1.8-2.4) mg/dL Troponin I (<or=51) ng/L Urine Color (Yellow) Urine Clarity (Clear) Urine pH (5-8) Ur Specific [place] (1.005-1.025) Urine Protein (Neg-Trace) mg/dL Urine Ketones (Negative) mg/dL Urine Blood (Negative) Urine Nitrite (Negative) Urine Bilirubin (Negative) Urine Urobilinogen (Up to 0.2) mg/dL Ur Leukocyte Esterase (Negative) Urine Glucose (Negative) mg/dL 07/14/24 07/14/24 07/14/24 Range/Units 16:15 16:15 16:15 WBC (4.4-10.8) 10^3/uL RBC (3.93-5.22) 10^6/uL Hgb (11.2-15.7) g/dL Hct (36.0-46.0) % MCV (80-95) fL MCH (27.0-33.0) pg MCHC (32.0-36.0) % RDW (11.7-14.6) % Plt Count (130-400) 10^3/uL MPV (8.0-11.0) fL Immature Gran % % Neutrophils % % Lymphocytes % % Monocytes % % Eosinophils % % Basophils % % Nucleated RBC % (0.0-0.3) % Absolute Neutrophils (1.2-6.7) 10^3/uL Absolute Lymphocytes (1.2-3.4) 10^3/uL Absolute Monocytes (0.1-0.8) 10^3/uL Absolute Eosinophils (0.0-0.7) 10^3/uL Absolute Basophils (0.0-0.2) 10^3/uL VBG pH (7.31-7.41) VBG pCO2 (41-51) mmHg VBG pO2 mmHg VBG HCO3 (23-28) mmol/L VBG Total CO2 (24-29) mmol/L VBG O2 Saturation % VBG Base Excess (-2-3) mmol/L Sodium Pending (136-145) mmol/L Potassium Pending Cancelled Cancelled (3.5-5.1) mmol/L Chloride Cancelled (98-107) mmol/L Carbon Dioxide (21.0-32.0) mmol/L Anion Gap (3-11) mmol/L BUN (7-18) mg/dL Creatinine (0.55-1.02) mg/dL Est GFR (CKD-EPI 2020) (mL/min/1.73m2) Glucose (74-106) mg/dL Calcium (8.5-10.1) mg/dL Phosphorus (2.6-4.7) mg/dL Magnesium (1.8-2.4) mg/dL Troponin I (<or=51) ng/L Urine Color (Yellow) Urine Clarity (Clear) Urine pH (5-8) Ur Specific [place] (1.005-1.025) Urine Protein (Neg-Trace) mg/dL Urine Ketones (Negative) mg/dL Urine Blood (Negative) Urine Nitrite (Negative) Urine Bilirubin (Negative) Urine Urobilinogen (Up to 0.2) mg/dL Ur Leukocyte Esterase (Negative) Urine Glucose (Negative) mg/dL 07/14/24 07/14/24 07/14/24 Range/Units 16:15 16:15 15:27 WBC (4.4-10.8) 10^3/uL RBC (3.93-5.22) 10^6/uL Hgb (11.2-15.7) g/dL Hct (36.0-46.0) % MCV (80-95) fL MCH (27.0-33.0) pg MCHC (32.0-36.0) % RDW (11.7-14.6) % Plt Count (130-400) 10^3/uL MPV (8.0-11.0) fL Immature Gran % % Neutrophils % % Lymphocytes % % Monocytes % % Eosinophils % % Basophils % % Nucleated RBC % (0.0-0.3) % Absolute Neutrophils (1.2-6.7) 10^3/uL Absolute Lymphocytes (1.2-3.4) 10^3/uL Absolute Monocytes (0.1-0.8) 10^3/uL Absolute Eosinophils (0.0-0.7) 10^3/uL Absolute Basophils (0.0-0.2) 10^3/uL VBG pH (7.31-7.41) VBG pCO2 (41-51) mmHg VBG pO2 mmHg VBG HCO3 (23-28) mmol/L VBG Total CO2 (24-29) mmol/L VBG O2 Saturation % VBG Base Excess (-2-3) mmol/L Sodium Cancelled Cancelled (136-145) mmol/L Potassium (3.5-5.1) mmol/L Chloride (98-107) mmol/L Carbon Dioxide (21.0-32.0) mmol/L Anion Gap (3-11) mmol/L BUN (7-18) mg/dL Creatinine (0.55-1.02) mg/dL Est GFR (CKD-EPI 2020) (mL/min/1.73m2) Glucose (74-106) mg/dL Calcium (8.5-10.1) mg/dL Phosphorus (2.6-4.7) mg/dL Magnesium (1.8-2.4) mg/dL Troponin I Cancelled (<or=51) ng/L Urine Color (Yellow) Urine Clarity (Clear) Urine pH (5-8) Ur Specific [place] (1.005-1.025) Urine Protein (Neg-Trace) mg/dL Urine Ketones (Negative) mg/dL Urine Blood (Negative) Urine Nitrite (Negative) Urine Bilirubin (Negative) Urine Urobilinogen (Up to 0.2) mg/dL Ur Leukocyte Esterase (Negative) Urine Glucose (Negative) mg/dL 07/14/24 07/14/24 07/14/24 Range/Units 15:15 14:15 14:03 WBC (4.4-10.8) 10^3/uL RBC (3.93-5.22) 10^6/uL Hgb (11.2-15.7) g/dL Hct (36.0-46.0) % MCV (80-95) fL MCH (27.0-33.0) pg MCHC (32.0-36.0) % RDW (11.7-14.6) % Plt Count (130-400) 10^3/uL MPV (8.0-11.0) fL Immature Gran % % Neutrophils % % Lymphocytes % % Monocytes % % Eosinophils % % Basophils % % Nucleated RBC % (0.0-0.3) % Absolute Neutrophils (1.2-6.7) 10^3/uL Absolute Lymphocytes (1.2-3.4) 10^3/uL Absolute Monocytes (0.1-0.8) 10^3/uL Absolute Eosinophils (0.0-0.7) 10^3/uL Absolute Basophils (0.0-0.2) 10^3/uL VBG pH (7.31-7.41) VBG pCO2 (41-51) mmHg VBG pO2 mmHg VBG HCO3 (23-28) mmol/L VBG Total CO2 (24-29) mmol/L VBG O2 Saturation % VBG Base Excess (-2-3) mmol/L Sodium Cancelled Cancelled 140 (136-145) mmol/L Potassium Cancelled Cancelled 4.7 (3.5-5.1) mmol/L Chloride Cancelled Cancelled 101 (98-107) mmol/L Carbon Dioxide Cancelled Cancelled 19.6 L (21.0-32.0) mmol/L Anion Gap Cancelled Cancelled 19.4 H (3-11) mmol/L BUN Cancelled Cancelled 27 H (7-18) mg/dL Creatinine Cancelled Cancelled 1.2 H (0.55-1.02) mg/dL Est GFR (CKD-EPI 2020) Cancelled Cancelled 47.80 (mL/min/1.73m2) Glucose Cancelled Cancelled 535 H* (74-106) mg/dL Calcium Cancelled Cancelled 8.9 (8.5-10.1) mg/dL Phosphorus (2.6-4.7) mg/dL Magnesium (1.8-2.4) mg/dL Troponin I (<or=51) ng/L Urine Color (Yellow) Urine Clarity (Clear) Urine pH (5-8) Ur Specific [place] (1.005-1.025) Urine Protein (Neg-Trace) mg/dL Urine Ketones (Negative) mg/dL Urine Blood (Negative) Urine Nitrite (Negative) Urine Bilirubin (Negative) Urine Urobilinogen (Up to 0.2) mg/dL Ur Leukocyte Esterase (Negative) Urine Glucose (Negative) mg/dL 07/14/24 07/14/24 07/14/24 Range/Units 13:52 13:27 12:40 WBC 11.97 H (4.4-10.8) 10^3/uL RBC 3.60 L (3.93-5.22) 10^6/uL Hgb 12.0 (11.2-15.7) g/dL Hct 35.7 L (36.0-46.0) % MCV 99 H (80-95) fL MCH 33.3 H (27.0-33.0) pg MCHC 33.6 (32.0-36.0) % RDW 12.7 (11.7-14.6) % Plt Count 290 (130-400) 10^3/uL MPV 10.6 (8.0-11.0) fL Immature Gran % 0.4 % Neutrophils % 88.3 % Lymphocytes % 8.0 % Monocytes % 2.5 % Eosinophils % 0.1 % Basophils % 0.7 % Nucleated RBC % 0.0 (0.0-0.3) % Absolute Neutrophils 10.57 H (1.2-6.7) 10^3/uL Absolute Lymphocytes 0.96 L (1.2-3.4) 10^3/uL Absolute Monocytes 0.30 (0.1-0.8) 10^3/uL Absolute Eosinophils 0.01 (0.0-0.7) 10^3/uL Absolute Basophils 0.08 (0.0-0.2) 10^3/uL VBG pH 7.26 L (7.31-7.41) VBG pCO2 45 (41-51) mmHg VBG pO2 40 mmHg VBG HCO3 20 L (23-28) mmol/L VBG Total CO2 19 L (24-29) mmol/L VBG O2 Saturation 65 % VBG Base Excess -7 L (-2-3) mmol/L Sodium 138 (136-145) mmol/L Potassium 4.9 (3.5-5.1) mmol/L Chloride 99 (98-107) mmol/L Carbon Dioxide 20.5 L (21.0-32.0) mmol/L Anion Gap 18.5 H (3-11) mmol/L BUN 26 H (7-18) mg/dL Creatinine 1.2 H (0.55-1.02) mg/dL Est GFR (CKD-EPI 2020) 47.80 (mL/min/1.73m2) Glucose 559 H* (74-106) mg/dL Calcium 9.2 (8.5-10.1) mg/dL Phosphorus 4.5 (2.6-4.7) mg/dL Magnesium 1.9 (1.8-2.4) mg/dL Troponin I Cancelled 5 (<or=51) ng/L Urine Color Yellow (Yellow) Urine Clarity Clear (Clear) Urine pH 5.5 (5-8) Ur Specific [place] 1.015 (1.005-1.025) Urine Protein Negative (Neg-Trace) mg/dL Urine Ketones 80 H (Negative) mg/dL Urine Blood Negative (Negative) Urine Nitrite Negative (Negative) Urine Bilirubin Negative (Negative) Urine Urobilinogen 0.2 (Up to 0.2) mg/dL Ur Leukocyte Esterase Negative (Negative) Urine Glucose 500 H (Negative) mg/dL [id number] Documentation Fingerstick Glucose Start: 07/14/24 12:30 Freq: Status: Complete Protocol: Activity Type Activity Date Activity User E-sign Co-sign Detail Recorded Client Recorded Date Recorded By Document 07/14/24 12:29 BKG DAEMON(7) [id number] 07/14/24 12:30 BKG DAEMON(8) Fingerstick Glucose Start: 07/14/24 13:11 Freq: .Q1H Status: Active Protocol: Activity Type Activity Date Activity User E-sign Co-sign Detail Recorded Client Recorded Date Recorded By Document 07/14/24 13:40 BKG DAEMON(9) NVT-BG05 07/14/24 13:40 BKG DAEMON(10) Fingerstick Glucose Start: 07/14/24 14:11 Freq: .Q1H Status: Active Protocol: Activity Type Activity Date Activity User E-sign Co-sign Detail Recorded Client Recorded Date Recorded By Document 07/14/24 15:53 BKG DAEMON(10) NVT-BG05 07/14/24 15:55 BKG DAEMON(10) Intake and Output - 24 Hour Total 07/14/24 12:06 thru 07/14/24 16:06 Intake Total 354.730 Balance 354.730 Weight 64.5 kg Intake: IV 354.730 Other: Emesis Description None Falls Risk Assessment History of Falls Previous History 07/14/24 14:55 Contributing Factors Impairments 07/14/24 14:55 Ambulatory Aids Uses ambulatory device 07/14/24 14:55 Tubes/Lines With any additional score 07/14/24 14:55 Gait Evaluation W/no contributing factors 07/14/24 14:55 Cognition No cognitive impairment 07/14/24 14:55 Fall Total Score 63 07/14/24 14:55 Level of Risk High Risk 07/14/24 14:55 Problems (Last Reviewed 07/14/24 @ 14:34 by Mikal Zhou MD) DKA, type 1 (Acute) Eyebrow laceration (Acute) Orthostatic hypotension (Acute) Vestibular disorder (Acute) v v v v v v v v v Sending and/or Receiving Nurses: Please use comment section below to note any information pertinent to the patient hand-off not included above. Information / Comments: Report received from:Lynette Rojas RN All questions answered
[2024-07-14 16:42] LABS: BUN 24 mg/dL (7-18); CREATININE 1.1 mg/dL (0.55-1.02); Calcium 8.6 mg/dL (8.5-10.1); Chloride 103 mmol/L (98-107); Estimated GFR 53.06 (mL/min/1.73m2); Glucose 372 mg/dL (74-106); Potassium 4.6 mmol/L (3.5-5.1); Sodium 142 mmol/L (136-145)
[2024-07-14] MEDS: Enoxaparin 40 MG/0.4 ML SYR SC (16:45)
[2024-07-14 18:45] LABS: Anion Gap 12.3 mmol/L (3-11); BUN 23 mg/dL (7-18); CO2 24.7 mmol/L (21.0-32.0); Calcium 8.4 mg/dL (8.5-10.1); Chloride 105 mmol/L (98-107); Estimated GFR 59.49 (mL/min/1.73m2); Glucose 312 mg/dL (74-106); Potassium 4.6 mmol/L (3.5-5.1); Sodium 142 mmol/L (136-145)
[2024-07-14] MEDS: Acetaminophen 500 MG TAB 1000 MG PO (19:30)
[2024-07-14 20:52] LABS: Anion Gap 5.8 mmol/L (3-11); BUN 24 mg/dL (7-18); CO2 26.2 mmol/L (21.0-32.0); Calcium 8.1 mg/dL (8.5-10.1); Chloride 108 mmol/L (98-107); Estimated GFR 59.49 (mL/min/1.73m2); Glucose 257 mg/dL (74-106); Potassium 4.6 mmol/L (3.5-5.1); Sodium 140 mmol/L (136-145)
[2024-07-14] MEDS: DEXTROSE 5%-0.45% SALINE 1,000 ML 150 ML IV (21:51)
[2024-07-14 23:20] LABS: Anion Gap 7.6 mmol/L (3-11); BUN 27 mg/dL (7-18); CO2 25.4 mmol/L (21.0-32.0); CREATININE 1.1 mg/dL (0.55-1.02); Calcium 8.4 mg/dL (8.5-10.1); Chloride 109 mmol/L (98-107); Estimated GFR 53.06 (mL/min/1.73m2); Glucose 173 mg/dL (74-106); Potassium 4.3 mmol/L (3.5-5.1); Sodium 142 mmol/L (136-145)
[2024-07-15] VITALS (15 sets, daily range): BP systolic 95–154; BP diastolic 45–71; PULSE 75–88; RESP 11–35; TEMP 36.8; O2SAT 93–96
[2024-07-15 01:10] LABS: Anion Gap 6.4 mmol/L (3-11); BUN 26 mg/dL (7-18); CO2 25.6 mmol/L (21.0-32.0); Calcium 8.1 mg/dL (8.5-10.1); Chloride 110 mmol/L (98-107); Estimated GFR 59.49 (mL/min/1.73m2); Glucose 117 mg/dL (74-106); Potassium 3.9 mmol/L (3.5-5.1); Sodium 142 mmol/L (136-145)
[2024-07-15 03:02] LABS: Anion Gap 4.8 mmol/L (3-11); BUN 23 mg/dL (7-18); CO2 27.2 mmol/L (21.0-32.0); CREATININE 0.8 mg/dL (0.55-1.02); Chloride 110 mmol/L (98-107); Estimated GFR 77.75 (mL/min/1.73m2); Glucose 68 mg/dL (74-106); Potassium 3.9 mmol/L (3.5-5.1); Sodium 142 mmol/L (136-145)
[2024-07-15] MEDS: Dextrose 50%-Water 25 GM/50 ML SYR (03:45)
[2024-07-15] MEDS: Normal Saline 1,000 ML 150 ML IV (04:35)
[2024-07-15] MEDS: Normal Saline Flush 10 ML SYR IVP (04:41)
[2024-07-15 04:54] LABS: Anion Gap 7.5 mmol/L (3-11); BUN 23 mg/dL (7-18); CO2 28.5 mmol/L (21.0-32.0); CREATININE 0.8 mg/dL (0.55-1.02); Calcium 8.1 mg/dL (8.5-10.1); Chloride 107 mmol/L (98-107); Estimated GFR 77.75 (mL/min/1.73m2); Glucose 101 mg/dL (74-106); Potassium 3.9 mmol/L (3.5-5.1); Sodium 143 mmol/L (136-145)
[2024-07-15 07:37] LABS: Anion Gap 7.4 mmol/L (3-11); BUN 21 mg/dL (7-18); CO2 25.6 mmol/L (21.0-32.0); CREATININE 0.7 mg/dL (0.55-1.02); Calcium 7.9 mg/dL (8.5-10.1); Chloride 110 mmol/L (98-107); Estimated GFR 91.26 (mL/min/1.73m2); Glucose 106 mg/dL (74-106); Potassium 3.5 mmol/L (3.5-5.1); Sodium 143 mmol/L (136-145)
--- NOTE | 2024-07-15 08:33 | PDOC.CMIN ---
Date of service: 07/15/24 Time of Service: 08:33 Care Management Initial Assmt Initial Assessment Reason for Hospitalization: DKA Functional Status/Living Situation Patient Presentation: Mireya was discharged early this morning. did not have a chance to meet with her. She presented in DKA after running out of insulin cartridges for her insulin pump. She tried to adjust with Lantus, but her BS got away from her. Town of Residence: [place] Advance Directives Advance Directives: Do you have an Advance Directive: Y 08/19/23 12:26 AD On File at [facility]: Y 08/19/23 12:26 Date Asked 08/19/23 10/26/23 00:25 AD Date Reviewed 07/14/24 07/14/24 12:39 COLST On File at [facility] COLST Date Scanned Code Status Resuscitation Status Full Code Insurance Coverage/Financial Issues Insurance: Medicare BC/BS Care Team Visit Care Team Role Provider Type Danisha Ortiz Primary Care Provider NURSE PRACTITIONER Aaron Velasquez MD Emergency Provider [facility] STAFF PHYSICIAN Mikal Zhou MD Admit Provider [facility] STAFF PHYSICIAN Attending Provider Discharge Plan: Anticipate that Mireya will f/u with her PCP and continue per her plan of care. PFSH All Active Problems DKA, type 1 (Acute) Eyebrow laceration (Acute) Fall (on) (from) other stairs and steps, initial encounter (Acute) Closed head injury (Acute) Cervical stenosis of spinal canal (Acute) Frequent falls (Acute) Orthostatic hypotension (Acute) Vestibular disorder (Acute) Peripheral neuropathy (Acute) Displaced fracture of lateral end of right clavicle (Acute) Medical History Melanoma in situ Vitamin B12 deficiency Hypertension Hyperlipidemia Hypothyroidism Type 1 diabetes Anxiety with depression Osteopenia Lichen sclerosus History of anemia Surgical History S/P hip replacement S/P ORIF (open reduction internal fixation) fracture S/P trigger finger release S/P carpal tunnel release S/P cataract extraction S/P cholecystectomy Family History Father Cancer Mother Dementia Social History Smoking/Tobacco Use Status: Never Smoking risk assessment performed?: Yes Alcohol Intake: current Alcohol Intake frequency: a few times a week Alcohol type: wine Drug use: Never Substance use type: does not use Household members: friend(s) Housing: house Number of Children: 3 current occupation: Retired RN What is your relationship status?: Panel score (0-1 are the most socially isolated patients): 0 Do you feel safe at home: Yes Do you feel safe in your relationship?: Yes Readmission Within the Past 30 Days Yes or No: No SDOH(Care Management) Screening Will the Patient Participate in the Screening?: Yes Do you worry about having a steady place to live?: no Problems where you live: no known problems In the past 12 months, have you had to go without electric, gas, oil or water in your home?: no Have you or anyone in your house had to go without enough food to eat?: no Has lack of transportation kept you from medical appointments or from doing things needed for daily living?: no Has anyone in your support network made you feel unsafe for any reason?: no
[2024-07-15 08:55] LABS: BUN 20 mg/dL (7-18); CREATININE 0.8 mg/dL (0.55-1.02); Calcium 8.2 mg/dL (8.5-10.1); Chloride 109 mmol/L (98-107); Estimated GFR 77.75 (mL/min/1.73m2); Glucose 147 mg/dL (74-106); Potassium 3.9 mmol/L (3.5-5.1); Sodium 142 mmol/L (136-145)
--- NOTE | 2024-07-15 09:01 | DSE_ITS ---
Date of service: 07/15/24 Time of Service: 09:01 DS: Diagnosis Discharge Diagnosis (1) Orthostatic hypotension: Status: Acute (2) DKA, type 1: Status: Acute (3) Vestibular disorder: Status: Acute (4) Eyebrow laceration: Status: Acute (5) Hyperlipidemia: (6) Hypertension: (7) Anxiety with depression: (8) Hypothyroidism: (9) Vitamin B12 deficiency: Discharge Plan Disposition Patient Disposition: Home Condition: Stable Discharge Details Reason For Visit: dka Admit Date/Time: 07/14/24 14:06 Admit Provider: Mikal Zhou Attending Provider: Mikal Zhou Primary Care Provider: Danisha North Hospital Course Hospital Course: This is a 74-year-old female was admitted for DKA last night. Patient uses an insulin pump and ran out of cartridges and thought she had another 1 but did not. Patient came into the ED for polydipsia and weakness and was noted to have an elevated gap as well as significantly elevated blood sugars. Patient was put in the ICU with DKA protocol. Patient's insulin drip was turned off at 3:00 in the morning. Her gap had closed and her last glucose measured in the low 100s. Patient was anxious to be discharged and was subsequently sent home. Home Meds and New Rx's Prescriptions: Continued losartan 50 mg tablet 50 mg PO DAILY Qty: 90 3RF sennosides [Natural Senna Laxative] 8.6 mg tablet 8.6 mg PO .QOD cholecalciferol (vitamin D3) 50 mcg (2,000 unit) Tablet 2,000 unit PO DAILY clobetasol 0.05 % Ointment 1 applic TOPICAL BID ezetimibe 10 mg Tablet 10 mg PO DAILY fluocinolone [Synalar] 0.01 % Solution 1 applic TOPICAL DIRECTED Rx Instructions: 5 drops to affected ear BID insulin lispro 100 unit/mL Cartridge 25 unit subcut DAILY ferrous sulfate [iron] 325 mg (65 mg iron) Tablet 325 mg PO DIRECTED Rx Instructions: 3 times per week Levemir U-100 Insulin 100 unit/mL Solution 25 unit SUBCUT DIRECTED PRN Rx Instructions: in case of pump failure levothyroxine 100 mcg Tablet 100 mcg PO DAILY simvastatin 20 mg Tablet 20 mg PO DIRECTED Rx Instructions: 3 times per week multivitamin Tablet 1 tab PO DAILY cyanocobalamin (vitamin B-12) [Vitamin B-12] 500 mcg Tablet 500 mcg PO DIRECTED Rx Instructions: take daily on weekdays sertraline 50 mg tablet 100 mg PO DAILY insulin lispro 100 unit/mL solution 1 sliding scale dose subcut USEASDIRECTD Qty: 10 0RF Rx Instructions: For use in your insulin pump Discharge Instructions Referrals: Danisha North [Primary Care Provider] - 07/23/24 9:55 am (You have an appointment with Danisha north 07/23/2024) Activity:: Activity as Tolerated Equipment/Supplies:: No Equipment Needed Diet:: As Tolerated Discharge Orders Discharge Orders: Discharge Order (Routine); Ordered 07/15/24 Ordered By: Mikal Zhou Discharge Data Discharge Date/Time-TO BE ENTERED AT DEPARTURE: 07/15/24 09:57 DS: Summary Time Spent with Patient providing and/or coordinating discharge services: Less than 30 minutes Status at Discharge Functional status at discharge: independent ambulation Overall status at discharge: patient is back to baseline Mental Status: mental status grossly normal Speech and Movement: speech and movement normal Mood: congruent mood Affect: normal affect Quality:SDOH Health Related Social Needs: 2 No Data to Display Exam Psych Mental Status: mental status grossly normal Speech and Movement: speech and movement normal Mood: congruent mood Affect: normal affect DS: Data Vitals/I&O Vitals and I&O: Vital Signs Temperature 36.8 C 07/15/24 04:01 Temperature Source Tympanic 07/15/24 02:46 Pulse 83 07/15/24 08:01 Pulse 83 07/15/24 08:01 Respiratory Rate 11 L 07/15/24 08:01 Respiratory Effort Normal 07/14/24 14:55 Respiratory Depth Normal 07/14/24 14:55 Respiratory Pattern Normal 07/14/24 14:55 Blood Pressure 154/71 H 07/15/24 08:01 Blood Pressure Mean 97 07/15/24 08:01 Blood Pressure Position Sitting 07/14/24 14:55 Pulse Oximetry 96 07/15/24 08:01 Oxygen Delivery Method Room Air 07/14/24 14:55 Oxygen Flow Rate 0 07/14/24 14:55 Pain Level 0 07/15/24 02:46 Intake & Output 07/14/24 07/14/24 07/15/24 11:59 23:59 11:59 Intake Total 2108.113 / 2108.113 1365.041 / 1365.041 Output Total 450 / 450 800 / 800 Balance 1658.113 / 1658.113 565.041 / 565.041 Weight 64.5 kg 5.9 kg Intake: IV 1458.113 / 3417.494 3742.041 / 1005.041 Oral 650 / 650 360 / 360 Output: Urine 450 / 450 800 / 800 Other: Urine Color Pale Yellow Yellow Urine Appearance Clear Clear Urine Odor Normal Stool Size Moderate Stool Characteristics Soft Formed Brown Emesis Description None Data Completed and Pending Labs on day of discharge: Labs from last 24 hours 07/15/24 07/15/24 07/15/24 10:15 08:30 06:30 WBC RBC Hgb Hct MCV MCH MCHC RDW Plt Count MPV Immature Gran % Neutrophils % Lymphocytes % Monocytes % Eosinophils % Basophils % Nucleated RBC % Absolute Neutrophils Absolute Lymphocytes Absolute Monocytes Absolute Eosinophils Absolute Basophils VBG pH VBG pCO2 VBG pO2 VBG HCO3 VBG Total CO2 VBG O2 Saturation VBG Base Excess Sodium Pending 142 143 Potassium Pending 3.9 3.5 Chloride Pending 109 H 110 H Carbon Dioxide Pending 25.0 25.6 Anion Gap Pending 8.0 7.4 BUN Pending 20 H 21 H Creatinine Pending 0.8 0.7 Est GFR (CKD-EPI 2020) Pending 77.75 91.26 Glucose Pending 147 H 106 Calcium Pending 8.2 L 7.9 L Phosphorus Magnesium Troponin I Urine Color Urine Clarity Urine pH Ur Specific [place] Urine Protein Urine Ketones Urine Blood Urine Nitrite Urine Bilirubin Urine Urobilinogen Ur Leukocyte Esterase Urine Glucose 07/15/24 07/15/24 07/15/24 04:35 02:40 00:33 WBC RBC Hgb Hct MCV MCH MCHC RDW Plt Count MPV Immature Gran % Neutrophils % Lymphocytes % Monocytes % Eosinophils % Basophils % Nucleated RBC % Absolute Neutrophils Absolute Lymphocytes Absolute Monocytes Absolute Eosinophils Absolute Basophils VBG pH VBG pCO2 VBG pO2 VBG HCO3 VBG Total CO2 VBG O2 Saturation VBG Base Excess Sodium 143 142 142 Potassium 3.9 3.9 3.9 Chloride 107 110 H 110 H Carbon Dioxide 28.5 27.2 25.6 Anion Gap 7.5 4.8 6.4 BUN 23 H 23 H 26 H Creatinine 0.8 0.8 1.0 Est GFR (CKD-EPI 2020) 77.75 77.75 59.49 Glucose 101 68 L 117 H Calcium 8.1 L 8.0 L 8.1 L Phosphorus Magnesium Troponin I Urine Color Urine Clarity Urine pH Ur Specific [place] Urine Protein Urine Ketones Urine Blood Urine Nitrite Urine Bilirubin Urine Urobilinogen Ur Leukocyte Esterase Urine Glucose 07/14/24 07/14/24 07/14/24 23:15 22:40 22:15 WBC RBC Hgb Hct MCV MCH MCHC RDW Plt Count MPV Immature Gran % Neutrophils % Lymphocytes % Monocytes % Eosinophils % Basophils % Nucleated RBC % Absolute Neutrophils Absolute Lymphocytes Absolute Monocytes Absolute Eosinophils Absolute Basophils VBG pH VBG pCO2 VBG pO2 VBG HCO3 VBG Total CO2 VBG O2 Saturation VBG Base Excess Sodium Cancelled 142 Cancelled Potassium Cancelled 4.3 Cancelled Chloride Cancelled 109 H Cancelled Carbon Dioxide Cancelled 25.4 Cancelled Anion Gap Cancelled 7.6 Cancelled BUN Cancelled 27 H Cancelled Creatinine Cancelled 1.1 H Cancelled Est GFR (CKD-EPI 2020) Cancelled 53.06 Cancelled Glucose Cancelled 173 H Cancelled Calcium Cancelled 8.4 L Cancelled Phosphorus Magnesium Troponin I Urine Color Urine Clarity Urine pH Ur Specific [place] Urine Protein Urine Ketones Urine Blood Urine Nitrite Urine Bilirubin Urine Urobilinogen Ur Leukocyte Esterase Urine Glucose 07/14/24 07/14/24 07/14/24 21:15 20:30 20:15 WBC RBC Hgb Hct MCV MCH MCHC RDW Plt Count MPV Immature Gran % Neutrophils % Lymphocytes % Monocytes % Eosinophils % Basophils % Nucleated RBC % Absolute Neutrophils Absolute Lymphocytes Absolute Monocytes Absolute Eosinophils Absolute Basophils VBG pH VBG pCO2 VBG pO2 VBG HCO3 VBG Total CO2 VBG O2 Saturation VBG Base Excess Sodium Cancelled 140 Cancelled Potassium Cancelled 4.6 Cancelled Chloride Cancelled 108 H Cancelled Carbon Dioxide Cancelled 26.2 Cancelled Anion Gap Cancelled 5.8 Cancelled BUN Cancelled 24 H Cancelled Creatinine Cancelled 1.0 Cancelled Est GFR (CKD-EPI 2020) Cancelled 59.49 Cancelled Glucose Cancelled 257 H Cancelled Calcium Cancelled 8.1 L Cancelled Phosphorus Magnesium Troponin I Urine Color Urine Clarity Urine pH Ur Specific [place] Urine Protein Urine Ketones Urine Blood Urine Nitrite Urine Bilirubin Urine Urobilinogen Ur Leukocyte Esterase Urine Glucose 11/18/24 11/18/24 11/18/24 19:15 18:20 18:15 WBC RBC Hgb Hct MCV MCH MCHC RDW Plt Count MPV Immature Gran % Neutrophils % Lymphocytes % Monocytes % Eosinophils % Basophils % Nucleated RBC % Absolute Neutrophils Absolute Lymphocytes Absolute Monocytes Absolute Eosinophils Absolute Basophils VBG pH VBG pCO2 VBG pO2 VBG HCO3 VBG Total CO2 VBG O2 Saturation VBG Base Excess Sodium Cancelled 142 Potassium Cancelled 4.6 Chloride Cancelled 105 Carbon Dioxide Cancelled 24.7 Anion Gap Cancelled 12.3 H BUN Cancelled 23 H Creatinine Cancelled 1.0 Est GFR (CKD-EPI 2020) Cancelled 59.49 Glucose Cancelled 312 H Calcium Cancelled 8.4 L Cancelled Phosphorus Magnesium Troponin I Urine Color Urine Clarity Urine pH Ur Specific [place] Urine Protein Urine Ketones Urine Blood Urine Nitrite Urine Bilirubin Urine Urobilinogen Ur Leukocyte Esterase Urine Glucose 07/14/24 07/14/24 07/14/24 18:15 18:15 18:15 WBC RBC Hgb Hct MCV MCH MCHC RDW Plt Count MPV Immature Gran % Neutrophils % Lymphocytes % Monocytes % Eosinophils % Basophils % Nucleated RBC % Absolute Neutrophils Absolute Lymphocytes Absolute Monocytes Absolute Eosinophils Absolute Basophils VBG pH VBG pCO2 VBG pO2 VBG HCO3 VBG Total CO2 VBG O2 Saturation VBG Base Excess Sodium Potassium Chloride Carbon Dioxide Anion Gap BUN Creatinine Cancelled Est GFR (CKD-EPI 2020) Cancelled Cancelled Glucose Cancelled Cancelled Calcium Cancelled Phosphorus Magnesium Troponin I Urine Color Urine Clarity Urine pH Ur Specific [place] Urine Protein Urine Ketones Urine Blood Urine Nitrite Urine Bilirubin Urine Urobilinogen Ur Leukocyte Esterase Urine Glucose 07/14/24 07/14/24 07/14/24 18:15 18:15 18:15 WBC RBC Hgb Hct MCV MCH MCHC RDW Plt Count MPV Immature Gran % Neutrophils % Lymphocytes % Monocytes % Eosinophils % Basophils % Nucleated RBC % Absolute Neutrophils Absolute Lymphocytes Absolute Monocytes Absolute Eosinophils Absolute Basophils VBG pH VBG pCO2 VBG pO2 VBG HCO3 VBG Total CO2 VBG O2 Saturation VBG Base Excess Sodium Potassium Chloride Carbon Dioxide Cancelled Anion Gap Cancelled Cancelled BUN Cancelled Cancelled Creatinine Cancelled Est GFR (CKD-EPI 2020) Glucose Calcium Phosphorus Magnesium Troponin I Urine Color Urine Clarity Urine pH Ur Specific [place] Urine Protein Urine Ketones Urine Blood Urine Nitrite Urine Bilirubin Urine Urobilinogen Ur Leukocyte Esterase Urine Glucose 07/14/24 07/14/24 07/14/24 18:15 18:15 18:15 WBC RBC Hgb Hct MCV MCH MCHC RDW Plt Count MPV Immature Gran % Neutrophils % Lymphocytes % Monocytes % Eosinophils % Basophils % Nucleated RBC % Absolute Neutrophils Absolute Lymphocytes Absolute Monocytes Absolute Eosinophils Absolute Basophils VBG pH VBG pCO2 VBG pO2 VBG HCO3 VBG Total CO2 VBG O2 Saturation VBG Base Excess Sodium Cancelled Potassium Cancelled Cancelled Chloride Cancelled Cancelled Carbon Dioxide Cancelled Anion Gap BUN Creatinine Est GFR (CKD-EPI 2020) Glucose Calcium Phosphorus Magnesium Troponin I Urine Color Urine Clarity Urine pH Ur Specific [place] Urine Protein Urine Ketones Urine Blood Urine Nitrite Urine Bilirubin Urine Urobilinogen Ur Leukocyte Esterase Urine Glucose 07/14/24 07/14/24 07/14/24 18:15 17:15 16:15 WBC RBC Hgb Hct MCV MCH MCHC RDW Plt Count MPV Immature Gran % Neutrophils % Lymphocytes % Monocytes % Eosinophils % Basophils % Nucleated RBC % Absolute Neutrophils Absolute Lymphocytes Absolute Monocytes Absolute Eosinophils Absolute Basophils VBG pH VBG pCO2 VBG pO2 VBG HCO3 VBG Total CO2 VBG O2 Saturation VBG Base Excess Sodium Cancelled Cancelled Potassium Cancelled Chloride Cancelled Carbon Dioxide Cancelled Anion Gap Cancelled BUN Cancelled Creatinine Cancelled Est GFR (CKD-EPI 2020) Cancelled Glucose Cancelled Calcium Cancelled Cancelled Phosphorus Magnesium Troponin I Urine Color Urine Clarity Urine pH Ur Specific [place] Urine Protein Urine Ketones Urine Blood Urine Nitrite Urine Bilirubin Urine Urobilinogen Ur Leukocyte Esterase Urine Glucose 07/14/24 07/14/24 07/14/24 16:15 16:15 16:15 WBC RBC Hgb Hct MCV MCH MCHC RDW Plt Count MPV Immature Gran % Neutrophils % Lymphocytes % Monocytes % Eosinophils % Basophils % Nucleated RBC % Absolute Neutrophils Absolute Lymphocytes Absolute Monocytes Absolute Eosinophils Absolute Basophils VBG pH VBG pCO2 VBG pO2 VBG HCO3 VBG Total CO2 VBG O2 Saturation VBG Base Excess Sodium Potassium Chloride Carbon Dioxide Anion Gap BUN Creatinine Cancelled Est GFR (CKD-EPI 2020) Cancelled Cancelled Glucose Cancelled Cancelled Calcium Cancelled Phosphorus Magnesium Troponin I Urine Color Urine Clarity Urine pH Ur Specific [place] Urine Protein Urine Ketones Urine Blood Urine Nitrite Urine Bilirubin Urine Urobilinogen Ur Leukocyte Esterase Urine Glucose 07/14/24 07/14/24 07/14/24 16:15 16:15 16:15 WBC RBC Hgb Hct MCV MCH MCHC RDW Plt Count MPV Immature Gran % Neutrophils % Lymphocytes % Monocytes % Eosinophils % Basophils % Nucleated RBC % Absolute Neutrophils Absolute Lymphocytes Absolute Monocytes Absolute Eosinophils Absolute Basophils VBG pH VBG pCO2 VBG pO2 VBG HCO3 VBG Total CO2 VBG O2 Saturation VBG Base Excess Sodium Potassium Chloride Carbon Dioxide Cancelled Anion Gap Cancelled Cancelled BUN Cancelled Cancelled Creatinine Cancelled Est GFR (CKD-EPI 2020) Glucose Calcium Phosphorus Magnesium Troponin I Urine Color Urine Clarity Urine pH Ur Specific [place] Urine Protein Urine Ketones Urine Blood Urine Nitrite Urine Bilirubin Urine Urobilinogen Ur Leukocyte Esterase Urine Glucose 07/14/24 07/14/24 07/14/24 16:15 16:15 16:15 WBC RBC Hgb Hct MCV MCH MCHC RDW Plt Count MPV Immature Gran % Neutrophils % Lymphocytes % Monocytes % Eosinophils % Basophils % Nucleated RBC % Absolute Neutrophils Absolute Lymphocytes Absolute Monocytes Absolute Eosinophils Absolute Basophils VBG pH VBG pCO2 VBG pO2 VBG HCO3 VBG Total CO2 VBG O2 Saturation VBG Base Excess Sodium Cancelled Potassium Cancelled Cancelled Chloride Cancelled Cancelled Carbon Dioxide Cancelled Anion Gap BUN Creatinine Est GFR (CKD-EPI 2020) Glucose Calcium Phosphorus Magnesium Troponin I Urine Color Urine Clarity Urine pH Ur Specific [place] Urine Protein Urine Ketones Urine Blood Urine Nitrite Urine Bilirubin Urine Urobilinogen Ur Leukocyte Esterase Urine Glucose 07/14/24 07/14/24 07/14/24 16:15 16:13 15:27 WBC RBC Hgb Hct MCV MCH MCHC RDW Plt Count MPV Immature Gran % Neutrophils % Lymphocytes % Monocytes % Eosinophils % Basophils % Nucleated RBC % Absolute Neutrophils Absolute Lymphocytes Absolute Monocytes Absolute Eosinophils Absolute Basophils VBG pH VBG pCO2 VBG pO2 VBG HCO3 VBG Total CO2 VBG O2 Saturation VBG Base Excess Sodium Cancelled 142 Potassium 4.6 Chloride 103 Carbon Dioxide 25.0 Anion Gap 14.0 H BUN 24 H Creatinine 1.1 H Est GFR (CKD-EPI 2020) 53.06 Glucose 372 H Calcium 8.6 Phosphorus Magnesium Troponin I Cancelled Urine Color Urine Clarity Urine pH Ur Specific [place] Urine Protein Urine Ketones Urine Blood Urine Nitrite Urine Bilirubin Urine Urobilinogen Ur Leukocyte Esterase Urine Glucose 07/14/24 07/14/24 07/14/24 15:15 14:15 14:03 WBC RBC Hgb Hct MCV MCH MCHC RDW Plt Count MPV Immature Gran % Neutrophils % Lymphocytes % Monocytes % Eosinophils % Basophils % Nucleated RBC % Absolute Neutrophils Absolute Lymphocytes Absolute Monocytes Absolute Eosinophils Absolute Basophils VBG pH VBG pCO2 VBG pO2 VBG HCO3 VBG Total CO2 VBG O2 Saturation VBG Base Excess Sodium Cancelled Cancelled 140 Potassium Cancelled Cancelled 4.7 Chloride Cancelled Cancelled 101 Carbon Dioxide Cancelled Cancelled 19.6 L Anion Gap Cancelled Cancelled 19.4 H BUN Cancelled Cancelled 27 H Creatinine Cancelled Cancelled 1.2 H Est GFR (CKD-EPI 2020) Cancelled Cancelled 47.80 Glucose Cancelled Cancelled 535 H* Calcium Cancelled Cancelled 8.9 Phosphorus Magnesium Troponin I Urine Color Urine Clarity Urine pH Ur Specific [place] Urine Protein Urine Ketones Urine Blood Urine Nitrite Urine Bilirubin Urine Urobilinogen Ur Leukocyte Esterase Urine Glucose 07/14/24 07/14/24 07/14/24 13:52 13:27 12:40 WBC 11.97 H RBC 3.60 L Hgb 12.0 Hct 35.7 L MCV 99 H MCH 33.3 H MCHC 33.6 RDW 12.7 Plt Count 290 MPV 10.6 Immature Gran % 0.4 Neutrophils % 88.3 Lymphocytes % 8.0 Monocytes % 2.5 Eosinophils % 0.1 Basophils % 0.7 Nucleated RBC % 0.0 Absolute Neutrophils 10.57 H Absolute Lymphocytes 0.96 L Absolute Monocytes 0.30 Absolute Eosinophils 0.01 Absolute Basophils 0.08 VBG pH 7.26 L VBG pCO2 45 VBG pO2 40 VBG HCO3 20 L VBG Total CO2 19 L VBG O2 Saturation 65 VBG Base Excess -7 L Sodium 138 Potassium 4.9 Chloride 99 Carbon Dioxide 20.5 L Anion Gap 18.5 H BUN 26 H Creatinine 1.2 H Est GFR (CKD-EPI 2020) 47.80 Glucose 559 H* Calcium 9.2 Phosphorus 4.5 Magnesium 1.9 Troponin I Cancelled 5 Urine Color Yellow Urine Clarity Clear Urine pH 5.5 Ur Specific [place] 1.015 Urine Protein Negative Urine Ketones 80 H Urine Blood Negative Urine Nitrite Negative Urine Bilirubin Negative Urine Urobilinogen 0.2 Ur Leukocyte Esterase Negative Urine Glucose 500 H PFSH All Active Problems DKA, type 1 (Acute) Eyebrow laceration (Acute) Fall (on) (from) other stairs and steps, initial encounter (Acute) Closed head injury (Acute) Cervical stenosis of spinal canal (Acute) Frequent falls (Acute) Orthostatic hypotension (Acute) Vestibular disorder (Acute) Peripheral neuropathy (Acute) Displaced fracture of lateral end of right clavicle (Acute) Medical History Melanoma in situ Vitamin B12 deficiency Hypertension Hyperlipidemia Hypothyroidism Type 1 diabetes Anxiety with depression Osteopenia Lichen sclerosus History of anemia Surgical History S/P hip replacement S/P ORIF (open reduction internal fixation) fracture S/P trigger finger release S/P carpal tunnel release S/P cataract extraction S/P cholecystectomy Family History Father Cancer Mother Dementia Social History Smoking/Tobacco Use Status: Never Smoking risk assessment performed?: Yes Alcohol Intake: current Alcohol Intake frequency: a few times a week Alcohol type: wine Drug use: Never Substance use type: does not use Household members: friend(s) Housing: house Number of Children: 3 current occupation: Retired RN What is your relationship status?: Panel score (0-1 are the most socially isolated patients): 0 Do you feel safe at home: Yes Do you feel safe in your relationship?: Yes Time Spent with Patient Time Spent with Patient: <45 minutes Time was spent: preparing to see the patient(eg.review tests), obtaining and/or reviewing separately otained hiistory, ordering medications,tests, procedures, referring, communicating with other health health care liaison, indepentently interpreting results, counseling the patient and care coordination
== END 2024-07-15 09:57 | disposition home or self-care (01) | DRG 639 ==
LOC: ER 14:00 → ICU 14:43
PROVIDERS: Admitting Provider Hospitalist; Emergency Provider Emergency Medicine; PCP Nurse Practitioner Family; Visit Provider Hospitalist
DX: E10.10 Type 1 diabetes mellitus with ketoacidosis without coma (principal); I10 Essential (primary) hypertension; I95.1 Orthostatic hypotension; E78.5 Hyperlipidemia, unspecified; E03.9 Hypothyroidism, unspecified; F41.8 Other specified anxiety disorders; E53.8 Deficiency of other specified B group vitamins; R29.6 Repeated falls; Z96.41 Presence of insulin pump (external) (internal); M48.02 Spinal stenosis, cervical region; W10.9XXD Fall (on) (from) unspecified stairs and steps, subsequent encounter; E10.42 Type 1 diabetes mellitus with diabetic polyneuropathy; M85.80 Other specified disorders of bone density and structure, unspecified site; L90.0 Lichen sclerosus et atrophicus; S01.112D Laceration without foreign body of left eyelid and periocular area, subsequent encounter; H81.90 Unspecified disorder of vestibular function, unspecified ear
CPT/HCPCS: 00123; 36415; 36416; 80048; 82805; 82962; 93005; 96365; 96376; 99291; J1650; 81003; 83735; 84100; 84484; 85025; 93010; 99222; 99239; J1815

== ENCOUNTER 2024-07-30 10:16 | Emergency (ER) | payer MEDICARE, BC, SELFPAY ==
[2024-07-30 10:21] VITALS: BP 133/69; PULSE 104; RESP 15; TEMP 36.8; O2SAT 96
--- NOTE | 2024-07-30 10:36 | ED.GENADUL_ITS ---
Discharge Plan Disposition Patient Disposition: Home Condition: Stable Discharge Details Clinical Impression: Closed fracture of proximal phalanx of right ring finger Primary Care Provider: Danisha Ortiz ED Provider: Estrada Burns Home Meds and New Rx's Prescriptions: Continued losartan 50 mg tablet 50 mg PO DAILY Qty: 90 3RF cholecalciferol (vitamin D3) 50 mcg (2,000 unit) Tablet 2,000 unit PO DAILY clobetasol 0.05 % Ointment 1 applic TOPICAL BID ezetimibe 10 mg Tablet 10 mg PO DAILY fluocinolone [Synalar] 0.01 % Solution 1 applic TOPICAL DIRECTED Rx Instructions: 5 drops to affected ear BID insulin lispro 100 unit/mL Cartridge 25 unit subcut DAILY ferrous sulfate [iron] 325 mg (65 mg iron) Tablet 325 mg PO DIRECTED Rx Instructions: 3 times per week Levemir U-100 Insulin 100 unit/mL Solution 25 unit SUBCUT DIRECTED PRN Rx Instructions: in case of pump failure levothyroxine 100 mcg Tablet 100 mcg PO DAILY simvastatin 20 mg Tablet 20 mg PO DIRECTED Rx Instructions: 3 times per week multivitamin Tablet 1 tab PO DAILY cyanocobalamin (vitamin B-12) [Vitamin B-12] 500 mcg Tablet 500 mcg PO DIRECTED Rx Instructions: take daily on weekdays sertraline 50 mg tablet 100 mg PO DAILY insulin lispro 100 unit/mL solution 1 sliding scale dose subcut USEASDIRECTD Qty: 10 0RF Rx Instructions: For use in your insulin pump Discharge Instructions Instructions: Finger Fracture ED, Splint Care ED Additional Instructions: Please keep finger splint in place. Please follow-up with hand specialist. Call today to arrange follow-up. Please contact your primary care physician to arrange follow-up. Return to the ER immediately for any worsening or new concerning symptoms. Discharge Data Discharge Date/Time-TO BE ENTERED AT DEPARTURE: 07/30/24 13:28 HPI General Mode of arrival: ambulatory . Date/Time Provider Initiated Documentation: 07/30/24 10:32 . Limitations to Documentation: no limitations . Information obtained by: patient . HPI Narrative: 74-year-old female presents after mechanical fall with injury to her right fourth digit. This occurred earlier this morning while trying to negotiate a large trash container to the curb. Patient notes no other injury. She did not did her head or lose consciousness. Patient unsure how she impacted/bent her finger. Pain is moderate and worse with movement of the finger. Pain localized to proximal fourth digit. No numbness or tingling. Related Data Home Medications ?Medication ?Instructions ?Recorded ?Confirmed cholecalciferol (vitamin D3) 50 2,000 unit PO DAILY 05/25/22 07/30/24 mcg (2,000 unit) tablet clobetasol 0.05 % topical ointment 1 applic topical BID 05/25/22 07/30/24 cyanocobalamin (vitamin B-12) 500 500 mcg PO DIRECTED 05/25/22 07/30/24 mcg tablet (Vitamin B-12) ezetimibe 10 mg tablet 10 mg PO DAILY 05/25/22 07/30/24 ferrous sulfate 325 mg (65 mg 325 mg PO DIRECTED 05/25/22 07/30/24 iron) tablet (iron) fluocinolone 0.01 % topical 1 applic topical DIRECTED 05/25/22 07/30/24 solution (Synalar) insulin detemir U-100 100 unit/mL 25 unit subcut DIRECTED PRN 05/25/22 07/30/24 subcutaneous solution (Levemir U-100 Insulin) insulin lispro 100 unit/mL 25 unit subcut DAILY 05/25/22 07/30/24 subcutaneous cartridge levothyroxine 100 mcg tablet 100 mcg PO DAILY 05/25/22 07/30/24 multivitamin 1 tab PO DAILY 05/25/22 07/30/24 simvastatin 20 mg tablet 20 mg PO DIRECTED 05/25/22 07/30/24 sertraline 50 mg tablet 100 mg PO DAILY 06/05/22 07/30/24 losartan 50 mg tablet 50 mg PO DAILY #90 tabs 06/19/23 07/30/24 insulin lispro 100 unit/mL 1 sliding scale dose subcut 06/26/24 07/30/24 subcutaneous solution USEASDIRECTD #10 mL Previous Rx's ?Medication ?Instructions ?Recorded losartan 50 mg tablet 50 mg PO DAILY #90 tabs 06/19/23 insulin lispro 100 unit/mL 1 sliding scale dose subcut 06/26/24 subcutaneous solution USEASDIRECTD #10 mL Allergies Allergy/AdvReac Type Severity Reaction Status Date / Time sodium lauryl sulfate Allergy Intermediate lip Verified 07/30/24 10:26 swelling Donaxdf-TBL-FcI Reductase AdvReac Mild memory Verified 07/30/24 10:26 Inhibitor troubles escitalopram (From Lexapro) AdvReac Unknown Other (See Verified 07/30/24 10:26 Comment) General Stated Complaint: Orthopedic WING: 4 Review of Systems Musculoskeletal Musculoskeletal: Reports as per HPI Exam Const General: cooperative and no acute distress Cardio Rate: regular rate and not tachycardic Rhythm: regular rhythm Neuro General: patient alert, patient awake and tone normal Extrem Right upper extremity: hand Details: normal capillary refill, tendon exam normal, tenderness Location: of the 4th digit Location: at the proximal phalanx, abnormal ROM of finger Details: pain with active ROM Location: of the 4th digit (MCP) and other (bruising proximal 4th digit and mcp) Course Vital Signs Vital signs: Vital Signs Temperature 36.8 C 07/30/24 10:21 Pulse 104 H 07/30/24 10:21 Respiratory Rate 15 07/30/24 10:21 Blood Pressure 133/69 07/30/24 10:21 Pulse Oximetry 96 07/30/24 10:21 Temperature 36.8 C 07/30/24 10:21 Pulse 104 H 07/30/24 10:21 Respiratory Rate 15 07/30/24 10:21 Respiratory Effort Normal 07/30/24 10:24 Blood Pressure 133/69 07/30/24 10:21 Blood Pressure Position Sitting 07/30/24 10:21 Pulse Oximetry 96 07/30/24 10:21 Oxygen Delivery Method Room Air 07/30/24 10:21 Oxygen Flow Rate 0 07/30/24 10:21 Procedures Orthopedic Splinting/Casting Injury #1: Side: right Upper Extremity Injury Location: finger (4th) Upper Extremity Immobilizer: finger (other) Additional Comments: volar splint applied to digits 3-5 with 90 deg flexxion at mcp and fingers in extension Medical Decision Making 74-year-old female here with right fourth digit injury after mechanical fall earlier today. No other injury sustained. Patient has tenderness right proximal phalanx with associated bruising and decreased range of motion secondary to pain. Patient neurovascular intact distally. Tendon function intact. Concern for fracture of the proximal phalanx. X-ray of the digit was reviewed and interpreted by radiology: Mildly displaced fracture of proximal phalanx of the ring finger. Plan to splint and will refer to hand specialist. Usual and customary discharge instructions were provided to the patient. Quality:SDOH Health Related Social Needs: No Data to Display PFSH All Active Problems (Updated 07/30/24 @ 11:09 by Estrada Burns MD) Closed fracture of proximal phalanx of right ring finger (Acute) DKA, type 1 (Acute) Eyebrow laceration (Acute) Fall (on) (from) other stairs and steps, initial encounter (Acute) Closed head injury (Acute) Cervical stenosis of spinal canal (Acute) Frequent falls (Acute) Orthostatic hypotension (Acute) Vestibular disorder (Acute) Peripheral neuropathy (Acute) Displaced fracture of lateral end of right clavicle (Acute) Medical History Melanoma in situ Vitamin B12 deficiency Hypertension Hyperlipidemia Hypothyroidism Type 1 diabetes Anxiety with depression Osteopenia Lichen sclerosus History of anemia Surgical History S/P hip replacement S/P ORIF (open reduction internal fixation) fracture S/P trigger finger release S/P carpal tunnel release S/P cataract extraction S/P cholecystectomy Family History Father Cancer Mother Dementia Social History Smoking/Tobacco Use Status: Never Smoking risk assessment performed?: Yes Alcohol Intake: current Alcohol Intake frequency: a few times a week Alcohol type: wine Drug use: Never Substance use type: does not use Household members: friend(s) Housing: house Number of Children: 3 current occupation: Retired RN What is your relationship status?: Panel score (0-1 are the most socially isolated patients): 0 Do you feel safe at home: Yes Do you feel safe in your relationship?: Yes PAWSS Have you Been Recently Intoxicated or Drunk Within the Last 30 days?: No Have you Ever Experienced Previous Episodes of Alcohol Withdrawal?: No Have you ever Experienced Withdrawal Seizures?: No Have you ever Experienced Delirium Tremens(DT)s?: No Have you ever undergone Alcohol Rehabilitation Treatment (i.e, inpt ot outpatient treatment programs)?: No Have you ever Experienced Blackouts?: No Have you ever Combined Alcohol with other Downers within the last 90 days?: No Have you ever Combined Alcohol with any other Substance of Abuse during the last 90 days?: No Positive Blood Alcohol level on Presentation? [PCS.BAL]: No Evidence of Increased Autonomic Activity (i.e. HR>120, tremor, sweating, agitation, nausea)?: No Result: 0
[2024-07-30] MEDS: Acetaminophen 325 MG TAB 650 MG PO (10:42)
--- NOTE | 2024-07-30 10:58 | DI.RAD_ITS ---
Exam(s) XR FINGER RT RING EXAM: XR FINGER RT RING CLINICAL HISTORY: trauma, fall pain prox phalanx. TECHNIQUE: 2D digital imaging was performed. Three views. COMPARISON: No exams were available for comparison FINDINGS: BONES: There is an oblique fracture extending through the midportion of the proximal phalanx of the r ing finger. Mild displacement. Minimal angulation. No additional fractures identified. No bony de structive lesion is seen. JOINTS: No dislocation present. Degenerative changes the interphalangeal joints present. There are degenerative changes at the 1st carpal metacarpal joint. SOFT TISSUE: Normal. IMPRESSION: Mildly displaced fracture of proximal phalanx of the ring finger. DATA REPOSITORY: RADIATION DOSE DELIVERED:
[2024-07-30 11:44] VITALS: BP 158/73; RESP 16; O2SAT 98
[2024-07-30 12:51] VITALS: BP 149/80; PULSE 89; RESP 16; O2SAT 99
--- NOTE | 2024-07-30 14:48 | NUR.NOTE ---
Faxed Dr bowden to [facility] [place] request. Fax Number used [phone]
== END 2024-07-30 13:28 | disposition home or self-care (01) ==
PROVIDERS: Emergency Provider Student in an Organized Health Care Education/Training Program; PCP Nurse Practitioner Family
DX: S62.614A Displaced fracture of proximal phalanx of right ring finger, initial encounter for closed fracture (principal); I10 Essential (primary) hypertension; E78.5 Hyperlipidemia, unspecified; E10.9 Type 1 diabetes mellitus without complications; Z79.4 Long term (current) use of insulin; W23.0XXA Caught, crushed, jammed, or pinched between moving objects, initial encounter; Y93.89 Activity, other specified; Y92.018 Other place in single-family (private) house as the place of occurrence of the external cause
CPT/HCPCS: 29130; 99283; 73140